=== PATIENT | male | born 1985 | race Caucasian/White ===

== ENCOUNTER 2017-06-25 07:55 | Emergency (ER) | payer SELFPAY ==
[2017-06-25] MEDS ORDERED: DEXAMETHASONE 10 MG/ML VIAL ONE (09:27)
--- NOTE | 2017-06-25 09:45 | ER ---
Nurse's Notes [facility] Name: Tod Mcgovern II Age: 31 yrs Sex: Male : 1985 Arrival Date: 06/25/2017 Time: 07:58 Bed 12 Private MD: None, None Diagnosis: Streptococcal pharyngitis Presentation: 06/25 08:23 Presenting complaint: Patient states: was diagnosed with strep, pt started having iw sore throat, fever 2 days ago, temp up to 103 last night. Transition of care: patient was not received from another setting of care. Onset of symptoms was June 23, 2017. Initial Sepsis Screen: Does the patient meet any 2 criteria? No. Patient's initial sepsis screen is negative. Does the patient have a suspected source of infection? No. Patient's initial sepsis screen is negative. Care prior to arrival: None. 08:23 Method Of Arrival: Ambulatory iw 08:23 Acuity: ESTEVAN 4 iw Historical: - Allergies: 08:26 aloe vera; iw - Home Meds: 08:26 None [Active]; iw - PMHx: 08:26 Migraines; iw - PSHx: 08:26 None; iw - Immunization history:: Adult Immunizations not up to date. - Social history:: Smoking status: Patient uses tobacco products, smokes one-half pack cigarettes per day. Screenin:43 Abuse screen: Denies threats or abuse. Denies injuries from another. Nutritional iw screening: No deficits noted. Tuberculosis screening: No symptoms or risk factors identified. Fall Risk None identified. Assessment: 08:42 General: Appears in no apparent distress. Behavior is calm, cooperative. Pain: iw Complains of pain in throat Pain currently is 5 out of 10 on a pain scale. Neuro: Level of Consciousness is awake, alert, obeys commands, Oriented to person, place, time, situation, Moves all extremities. Full function. Cardiovascular: Patient's skin is warm and dry. Respiratory: Airway is patent Respiratory effort is even, unlabored, Breath sounds are clear bilaterally. EENT: Throat is reddened bilaterally. Derm: Skin is pink, warm \T\ dry. normal. Musculoskeletal: Range of motion: intact in all extremities. Vital Signs: 08:26 BP 117 / 66; Pulse 94; Resp 18 S; Temp 98.1(TE); Pulse Ox 98% on R/A; Weight 142.88 kg; iw Height 5 ft. 9 in. (175.26 cm); Pain 7/10; 08:26 Body Mass Index 46.52 (142.88 kg, 175.26 cm) iw ED Course: 07:58 Patient arrived in ED. mr 07:58 None, None is Private Physician. mr 08:19 Mary Appiah, RN is Primary Nurse. iw 08:26 Triage completed. iw 08:26 León Adkins MD is Attending Physician. ps1 08:26 Arm band placed on. iw 08:43 No provider procedures requiring assistance completed. Strep swab sent to lab. Patient iw did not have IV access during this emergency room visit. 08:45 Patient has correct armband on for positive identification. iw Administered Medications: 09:30 Drug: Decadron - Dexamethasone 10 mg {Note: given orally.} Route: IVP; Site: Other; iw 09:50 Follow up: Response: No adverse reaction iw 09:50 Drug: Bicillin L-A 2.4 million units Route: IM; Site: right gluteus; iw Outcome: 09:44 Discharge ordered by . ps1 10:02 Discharged to home ambulatory. iw 10:02 Condition: good 10:02 Discharge instructions given to patient, Instructed on discharge instructions, follow up and referral plans. Demonstrated understanding of instructions, follow-up care. 10:03 Patient left the ED. iw Signatures: Sol Carrero Mary Appiah, RN RN iw León Adkins MD MD ps1 Corrections: (The following items were deleted from the chart) 08:50 08:23 Acuity: ESTEVAN 5 iw iw
--- NOTE | 2017-06-25 09:45 | EDPHYS ---
Physician Documentation [facility] Name: Tod Mcgovern II Age: 31 yrs Sex: Male : 1985 Arrival Date: 06/25/2017 Time: 07:58 Bed 12 Private MD: None, None ED Physician León Adkins HPI: 06/25 08:30 This 31 yrs old Male presents to ER via Ambulatory with complaints of Sore ps1 Throat. 08:30 The patient presents with sore throat. The patient describes throat pain as burning, ps1 raw, scratchy. Onset: The symptoms/episode began/occurred yesterday. Severity of symptoms: At their worst the symptoms were moderate, in the emergency department the symptoms are unchanged. Associated signs and symptoms: Pertinent negatives fever, flu-like symptoms. The patient has not experienced similar symptoms in the past. is sick with strep throat. . Historical: - Allergies: 08: aloe vera; iw - Home Meds: : None [Active]; iw - PMHx: : Migraines; iw - PSHx: : None; iw - Immunization history:: Adult Immunizations not up to date. - Social history:: Smoking status: Patient uses tobacco products, smokes one-half pack cigarettes per day. ROS: 08:31 Constitutional: Negative for fever, chills, and weight loss, Eyes: Negative for injury, ps1 pain, redness, and discharge, Cardiovascular: Negative for chest pain, palpitations, and edema, Respiratory: Negative for shortness of breath, cough, wheezing, and pleuritic chest pain, Abdomen/GI: Negative for abdominal pain, nausea, vomiting, diarrhea, and constipation, Back: Negative for injury and pain, : Negative for injury, bleeding, discharge, and swelling, Skin: Negative for injury, rash, and discoloration, Neuro: Negative for headache, weakness, numbness, tingling, and seizure. 08:31 ENT: Positive for sore throat. Exam: 08:31 Constitutional: This is a well developed, well nourished patient who is awake, alert, ps1 and in no acute distress. Head/Face: Normocephalic, atraumatic. Eyes: Pupils equal round and reactive to light, extra-ocular motions intact. Lids and lashes normal. Conjunctiva and sclera are non-icteric and not injected. 08:31 Cardiovascular: Regular rate and rhythm. No gallops, murmurs, or rubs. Normal PMI, no JVD. No pulse deficits. Respiratory: Lungs have equal breath sounds bilaterally, clear to auscultation and percussion. No rales, rhonchi or wheezes noted. No increased work of breathing, no retractions or nasal flaring. Abdomen/GI: Soft, non-tender, with normal bowel sounds. No distension or tympany. No guarding or rebound. No evidence of tenderness throughout. MS/ Extremity: Pulses equal, no cyanosis. Neurovascular intact. Full, normal range of motion. Neuro: Awake and alert, GCS 15, oriented to person, place, time, and situation. Cranial nerves II-XII grossly intact. Sensory grossly intact. 08:31 ENT: Posterior pharynx: Uvula: edematous, erythema, mild, erythema, that is moderate, exudate, is not appreciated. Vital Signs: 08:26 BP 117 / 66; Pulse 94; Resp 18 S; Temp 98.1(TE); Pulse Ox 98% on R/A; Weight 142.88 kg; iw Height 5 ft. 9 in. (175.26 cm); Pain 7/10; 08:26 Body Mass Index 46.52 (142.88 kg, 175.26 cm) iw MDM: 08:36 Patient medically screened. ps1 09:36 Data reviewed: vital signs, nurses notes. ED course: Strep positive. Bicililn given. ps1 Decadron given. Stable. . 0418 08:31 Order name: Strep; Complete Time: 09:34 ps1 Administered Medications: 09:30 Drug: Decadron - Dexamethasone 10 mg {Note: given orally.} Route: IVP; Site: Other; iw 09:50 Follow up: Response: No adverse reaction iw 09:50 Drug: Bicillin L-A 2.4 million units Route: IM; Site: right gluteus; iw Disposition: 18 09:44 Discharged to Home. Impression: Streptococcal pharyngitis. - Condition is Stable. - Discharge Instructions: Strep Throat. - Work release form, Medication Reconciliation Form, Thank You Letter, Antibiotic Education, Prescription Opioid Use form. - Follow up: Private Physician; When: As needed; Reason: Recheck today's complaints, Continuance of care, Re-evaluation by your physician. Follow up: Emergency Department; When: As needed; Reason: Trouble breathing, Worsening of condition. - Problem is new. - Symptoms have worsened. Signatures: Dispatcher [employer] Mary Remy, León Kline RN, MD MD ps1
[2017-06-25] MEDS ORDERED: PEN G BENZ LA 2.4 MU/4 ML SYRINGE IM ONE (09:52)
[2017-06-25 10:08] VITALS: BP 117/66; TEMP 98.1; O2SAT 98
== END 2017-06-25 10:03 | disposition home or self-care (01) ==
LOC: ER 07:55
DX: J02.0 Streptococcal pharyngitis (principal); F17.210 Nicotine dependence, cigarettes, uncomplicated; Z91.048 Other nonmedicinal substance allergy status
CPT/HCPCS: 87081; 96372; 96374; 99283; J0561; J1100

== ENCOUNTER 2018-04-15 15:48 | Emergency (ER) | payer SELFPAY ==
[2018-04-15] MEDS ORDERED: NA CHLORIDE 0.9% 1,000 ML ONE (17:57)
[2018-04-15] MEDS ORDERED: ONDANSETRON 4 MG/2 ML VIAL ONE (17:57)
--- NOTE | 2018-04-15 18:04 | EDPHYS ---
Physician Documentation [facility] Name: Tod Mcgovern II Age: 32 yrs Sex: Male : 1985 Arrival Date: 04/15/2018 Time: 15:51 Bed 15 Private MD: ED Physician Sunny Correia HPI: 04/15 17:41 This 32 yrs old Male presents to ER via Ambulatory with complaints of rn Nausea/Vomiting/Diarrhea, Urinary Problem. 17:41 The patient presents to the emergency department with nausea, vomiting, diarrhea. rn Onset: The symptoms/episode began/occurred 3 day(s) ago. Possible causes: unknown. The symptoms are aggravated by nothing. The symptoms are alleviated by nothing. Severity of symptoms: At their worst the symptoms were moderate. The patient has experienced similar episodes in the past. Reports multiple family members with flu like illness, vomiting, diarrhea, not tolerating PO, feels dehydrated.. Historical: - Allergies: 16:09 aloe vera; aa5 - PMHx: 16:09 Migraines; aa5 - PSHx: 16:09 None; aa5 - Immunization history:: Flu vaccine is not up to date. - Social history:: Smoking status: Patient uses tobacco products, smokes one-half pack cigarettes per day. - Ebola Screening: : No symptoms or risks identified at this time. - Family history:: not pertinent. - Hospitalizations: : No recent hospitalization is reported. ROS: 17:41 Constitutional: Negative for fever, chills, and weight loss, Eyes: Negative for injury, rn pain, redness, and discharge, Neck: Negative for injury, pain, and swelling, Cardiovascular: Negative for chest pain, palpitations, and edema, Respiratory: Negative for shortness of breath, cough, wheezing, and pleuritic chest pain, Abdomen/GI: + nausea/vomiting/diarrhea MS/Extremity: Negative for injury and deformity, Skin: Negative for injury, rash, and discoloration, Neuro: Negative for headache, numbness, tingling, and seizure. Exam: 17:41 Constitutional: This is a well developed, well nourished patient who is awake, alert, rn and in no acute distress. Head/Face: Normocephalic, atraumatic. Eyes: Pupils equal round and reactive to light, extra-ocular motions intact. Lids and lashes normal. Conjunctiva and sclera are non-icteric and not injected. Cornea within normal limits. Periorbital areas with no swelling, redness, or edema. ENT: dry MM Abdomen/GI: soft, non-tender Skin: warm, dry MS/ Extremity: Pulses equal, no cyanosis. Neurovascular intact. Full, normal range of motion. Equal circumference. Neuro: Awake and alert, GCS 15, oriented to person, place, time, and situation. Cranial nerves II-XII grossly intact. Motor strength 5/5 in all extremities. Sensory grossly intact. Cerebellar exam normal. Normal gait. Vital Signs: 16:10 BP 141 / 68; Pulse 86; Resp 18 S; Temp 98.0(TE); Pulse Ox 97% on R/A; Weight 135.62 kg aa5 (R); Height 5 ft. 9 in. (175.26 cm); Pain 0/10; 18:49 BP 134 / 77; Pulse 79; Resp 16 S; Pulse Ox 98% on R/A; jl7 16:10 Body Mass Index 44.15 (135.62 kg, 175.26 cm) aa5 MDM: 17:29 Patient medically screened. rn 17:41 Differential diagnosis: Nonspecific abd pain, viral gastroenteritis, gastroenteritis. rn Data reviewed: vital signs, nurses notes, lab test result(s), and as a result, I will discharge patient. Counseling: I had a detailed discussion with the patient and/or guardian regarding: the historical points, exam findings, and any diagnostic results supporting the discharge/admit diagnosis, lab results, the need for outpatient follow up, to return to the emergency department if symptoms worsen or persist or if there are any questions or concerns that arise at home. 18:01 Special discussion: I discussed with the patient/guardian in detail that at this point rn there is no indication for admission to the hospital. It is understood, however, that if the symptoms persist or worsen the patient needs to return immediately for re-evaluation. ED course: Pt's spouse with flu, symptoms consistent with flu/flu-like illness, no abd tenderness, will rehydrate and dc home with prn zofran, too late for tamiflu. Flu test likely false negative. . 04/15 15:59 Order name: Flu; Complete Time: 17:38 snw 04/15 17:39 Order name: IV Start; Complete Time: 18:00 rn Administered Medications: 18:06 Drug: NS 0.9% 1000 ml Route: IV; Rate: 1000 ml; Site: left antecubital; [facility] 18:50 Follow up: IV Status: Completed infusion 7 18:06 Drug: Zofran 4 mg Route: IVP; Site: left antecubital; [facility] 18:50 Follow up: Response: No adverse reaction; Nausea is decreased [facility] Disposition: 04/15/18 18:03 Discharged to Home. Impression: Vomiting, Diarrhea, unspecified, Dehydration. - Condition is Stable. - Discharge Instructions: Dehydration, Adult, Nausea and Vomiting, Adult, Viral Gastroenteritis, Adult. - Prescriptions for Zofran ODT 4 mg Oral tablet,disintegrating - place 1 tablet by TRANSLINGUAL route every 8 hours; 20 tablet. - Medication Reconciliation Form, Thank You Letter, Antibiotic Education, Prescription Opioid Use, Work release form form. - Follow up: Private Physician; When: As needed; Reason: Recheck today's complaints, Re-evaluation by your physician. - Problem is new. - Symptoms have improved. Signatures: Dispatcher [employer] EDMS Sunny Correia MD MD rn Calderon, Audri, RN RN aa5 Black Cooney RN RN hj Marinas, Patrick, [employer] pm1 Miles Dimas RN RN jl7 Corrections: (The following items were deleted from the chart) 18:51 18:03 04/15/2018 18:03 Discharged to Home. Impression: Vomiting; Diarrhea, unspecified; jl7 Dehydration. Condition is Stable. Forms are Medication Reconciliation Form, Thank You Letter, Antibiotic Education, Prescription Opioid Use. Follow up: Private Physician; When: As needed; Reason: Recheck today's complaints, Re-evaluation by your physician. Problem is new. Symptoms have improved. rn 19:05 18:51 04/15/2018 18:03 Discharged to Home. Impression: Vomiting; Diarrhea, unspecified; hj Dehydration. Condition is Stable. Discharge Instructions: Dehydration, Adult, Nausea and Vomiting, Adult, Viral Gastroenteritis, Adult. Prescriptions for Zofran ODT 4 mg Oral tablet,disintegrating - place 1 tablet by TRANSLINGUAL route every 8 hours; 20 tablet. and Forms are Medication Reconciliation Form, Thank You Letter, Antibiotic Education, Prescription Opioid Use. Follow up: Private Physician; When: As needed; Reason: Recheck today's complaints, Re-evaluation by your physician. Problem is new. Symptoms have improved. jl7
--- NOTE | 2018-04-15 18:04 | ER ---
Nurse's Notes [facility] Name: Tod Mcgovern II Age: 32 yrs Sex: Male : 1985 Arrival Date: 04/15/2018 Time: 15:51 Bed 15 Private MD: Diagnosis: Vomiting;Diarrhea, unspecified;Dehydration Presentation: 04/15 16:08 Presenting complaint: Patient states: N/V/D and cough that began approximately 4 days aa5 ago. Pt also reports decreased urination. Transition of care: patient was not received from another setting of care. Onset of symptoms was April 2018. Risk Assessment: Do you want to hurt yourself or someone else? Patient reports no desire to harm self or others. Initial Sepsis Screen: Does the patient meet any 2 criteria? No. Patient's initial sepsis screen is negative. Does the patient have a suspected source of infection? No. Patient's initial sepsis screen is negative. Care prior to arrival: None. 16:08 Method Of Arrival: Ambulatory aa5 16:08 Acuity: ESTEVAN 3 aa5 Historical: - Allergies: 16:09 aloe vera; aa5 - PMHx: 16:09 Migraines; aa5 - PSHx: 16:09 None; aa5 - Immunization history:: Flu vaccine is not up to date. - Social history:: Smoking status: Patient uses tobacco products, smokes one-half pack cigarettes per day. - Ebola Screening: : No symptoms or risks identified at this time. - Family history:: not pertinent. - Hospitalizations: : No recent hospitalization is reported. Screenin:06 Abuse screen: Denies threats or abuse. Denies injuries from another. Nutritional jl7 screening: No deficits noted. Tuberculosis screening: No symptoms or risk factors identified. Fall Risk IV access (20 points). Total Bettencourt Fall Scale indicates No Risk (0-24 pts). Assessment: 18:06 General: Appears in no apparent distress. uncomfortable, Behavior is calm, cooperative, jl7 appropriate for age. Pain: Denies pain. Neuro: Level of Consciousness is awake, alert, obeys commands, Oriented to person, place, time, situation. Cardiovascular: Patient's skin is warm and dry. Respiratory: Airway is patent Respiratory effort is even, unlabored, Respiratory pattern is regular, symmetrical. GI: Abdomen is round non-distended. : No signs and/or symptoms were reported regarding the genitourinary system. EENT: No signs and/or symptoms were reported regarding the EENT system. Derm: Skin is pink, warm \T\ dry. Musculoskeletal: No signs and/or symptoms reported regarding the musculoskeletal system. 18:21 Reassessment: Pt will be discharged once fluids are done infusing. [facility] Vital Signs: 16:10 BP 141 / 68; Pulse 86; Resp 18 S; Temp 98.0(TE); Pulse Ox 97% on R/A; Weight 135.62 kg aa5 (R); Height 5 ft. 9 in. (175.26 cm); Pain 0/10; 18:49 BP 134 / 77; Pulse 79; Resp 16 S; Pulse Ox 98% on R/A; jl7 16:10 Body Mass Index 44.15 (135.62 kg, 175.26 cm) 5 ED Course: 15:51 Patient arrived in ED. rg4 16:09 Triage completed. 5 16:10 Arm band placed on. [facility] 17:17 Miles Dimas RN is Primary Nurse. [facility] 17:29 Sunny Correia MD is Attending Physician. rn 17:30 Flu and/or RSV swab sent to lab. [facility] 18:00 Patient has correct armband on for positive identification. Bed in low position. Call [facility] light in reach. Side rails up X 1. Warm blanket given. Pulse ox on. NIBP on. 18:00 Inserted saline lock: 20 gauge in left antecubital area, using aseptic technique. [facility] 18:50 No provider procedures requiring assistance completed. IV discontinued, intact, 7 bleeding controlled, No redness/swelling at site. Pressure dressing applied. Administered Medications: 18:06 Drug: NS 0.9% 1000 ml Route: IV; Rate: 1000 ml; Site: left antecubital; [facility] 18:50 Follow up: IV Status: Completed infusion [facility] 18:06 Drug: Zofran 4 mg Route: IVP; Site: left antecubital; [facility] 18:50 Follow up: Response: No adverse reaction; Nausea is decreased [facility] Outcome: 18:03 Discharge ordered by . rn 18:50 Discharged to home ambulatory. [facility] 18:50 Condition: stable 18:50 Discharge instructions given to patient, Instructed on discharge instructions, follow up and referral plans. medication usage, Demonstrated understanding of instructions, follow-up care, medications, Prescriptions given X 1. 18:51 Patient left the ED. [email or web address] 19:05 Patient left the ED. leia Signatures: Sunny Correia MD MD rn Calderon, Audri, RN RN aa5 Black Cooney RN Emily Ortega 4 Sol Abdalla [facility] Miles Dimas RN RN jl7
[2018-04-15 19:15] VITALS: BP 134/77; O2SAT 98
[2018-04-15 19:40] VITALS: TEMP 99.9
== END 2018-04-15 19:05 | disposition home or self-care (01) ==
LOC: ER 15:48
DX: E86.0 Dehydration (principal); R19.7 Diarrhea, unspecified; F17.210 Nicotine dependence, cigarettes, uncomplicated; Z91.048 Other nonmedicinal substance allergy status
CPT/HCPCS: 87804; 96361; 96374; 99284; J2405; J7030

== ENCOUNTER 2018-04-22 02:22 | Emergency (ER) | payer SELFPAY ==
[2018-04-22 03:13] LABS: Absolute Lymphocytes (CBC) 3.3 K/uL (0.7-4.9); Absolute Monocytes 0.7 K/uL (0.1-1.3); Absolute Neutrophil 8.3 K/uL (1.8-8.0); Basophils % 0.4 % (0-1.3); Eosinophils % 1.3 % (0-4.4); Hematocrit 49.2 % (39.6-49.0); Lymphocytes % 26.4 % (15.3-44.8); MPV 8.9 fL (7.6-11.3); Monocytes % 5.5 % (3.3-12.3); RBC Red Blood Cell Count 5.74 M/uL (4.33-5.43)
[2018-04-22 03:14] LABS: Protime INR 1.03
[2018-04-22] MEDS ORDERED: ALBUTEROL 2.5 MG/3 ML NEB SOL ONE (03:22)
[2018-04-22] MEDS ORDERED: METHYLPREDNISOLONE 125 MG INJ ONE (03:22)
[2018-04-22] MEDS ORDERED: IPRATROPIUM BROM 0.5MG/2.5ML ONE (03:22)
[2018-04-22] MEDS ORDERED: AZITHROMYCIN 500 MG/250 ML BAG ONE (03:23)
[2018-04-22] MEDS ORDERED: NA CHLORIDE 0.9% 1,000 ML ONE ×2 (03:23→04:01)
[2018-04-22] MEDS ORDERED: CEFTRIAXONE/SWI 1gm 1 GM/10 ML SYR ONE (03:23)
[2018-04-22 03:31] LABS: ALT/SGPT 76 U/L (12-78); AST/SGOT 31 U/L (15-37); Albumin 4.3 g/dL (3.4-5.0); Alkaline Phosphatase 49 U/L (45-117); BUN Blood Urea Nitrogen 10 mg/dL (7-18); Bicarbonate 28 mmol/L (21-32); Bilirubin Direct 0.1 mg/dL (0-0.2); Bilirubin Total 0.6 mg/dL (0.2-1.0); Glucose Level 134 mg/dL (74-106); Lipase 112 U/L (73-393); Magnesium 2.1 mg/dL (1.8-2.4); NT PRO-BNP 12 pg/mL (<125); Potassium 3.9 mmol/L (3.5-5.1); Protein, Total 7.7 g/dL (6.4-8.2); Sodium Level 142 mmol/L (136-145); Troponin (Emerg Dept Use Only) < 0.02 ng/mL (0.0-0.045)
--- NOTE | 2018-04-22 06:59 | EDPHYS ---
Physician Documentation [facility] Name: Tod Mcgovern II Age: 32 yrs Sex: Male : 1985 Arrival Date: 04/22/2018 Time: 02:23 Bed 6 Private MD: ED Physician Cesar Hoyos HPI: 04/22 02:46 This 32 yrs old Male presents to ER via Ambulatory with complaints of lobito Vomiting/Diarrhea, Shortness Of Breath, Chest Pain. 02:46 The patient presents to the emergency department with nausea, vomiting, diarrhea. lobito Onset: The symptoms/episode began/occurred 3 day(s) ago. Possible causes: unknown. The symptoms are aggravated by nothing. The symptoms are alleviated by nothing. Associated signs and symptoms: The patient has no apparent associated signs or symptoms. Severity of symptoms: At their worst the symptoms were mild moderate in the emergency department the symptoms are unchanged. The patient has not experienced similar symptoms in the past. Historical: - Allergies: 02:40 aloe vera; bb - Home Meds: 02:40 None [Active]; bb - PMHx: 02:40 Migraines; bb - PSHx: 02:40 None; bb - Immunization history:: Adult Immunizations unknown, Flu vaccine is not up to date. - Social history:: Smoking status: Patient uses tobacco products, smokes one-half pack cigarettes per day, Patient/guardian denies using alcohol, street drugs. - Ebola Screening: : No symptoms or risks identified at this time. - Family history:: not pertinent. ROS: 02:46 Constitutional: Negative for fever, chills, and weight loss, Eyes: Negative for injury, lobito pain, redness, and discharge, ENT: Negative for injury, pain, and discharge, Neck: Negative for injury, pain, and swelling, Cardiovascular: Negative for chest pain, palpitations, and edema, Back: Negative for injury and pain, : Negative for injury, bleeding, discharge, and swelling, MS/Extremity: Negative for injury and deformity, Skin: Negative for injury, rash, and discoloration, Neuro: Negative for headache, weakness, numbness, tingling, and seizure, Psych: Negative for depression, anxiety, suicide ideation, homicidal ideation, and hallucinations, Allergy/Immunology: Negative for hives, rash, and allergies, Endocrine: Negative for neck swelling, polydipsia, polyuria, polyphagia, and marked weight changes, Hematologic/Lymphatic: Negative for swollen nodes, abnormal bleeding, and unusual bruising. 02:46 Cardiovascular: Negative for edema, palpitations. 02:46 Respiratory: Positive for cough, wheezing, expiratory. 02:46 Abdomen/GI: Positive for nausea, vomiting, diarrhea. 02:46 MS/extremity: Negative for acute changes. Exam: 02:46 Constitutional: This is a well developed, well nourished patient who is awake, alert, lobito and in no acute distress. Head/Face: Normocephalic, atraumatic. Eyes: Pupils equal round and reactive to light, extra-ocular motions intact. Lids and lashes normal. Conjunctiva and sclera are non-icteric and not injected. Cornea within normal limits. Periorbital areas with no swelling, redness, or edema. ENT: Nares patent. No nasal discharge, no septal abnormalities noted. Tympanic membranes are normal and external auditory canals are clear. Oropharynx with no redness, swelling, or masses, exudates, or evidence of obstruction, uvula midline. Mucous membranes moist. Neck: Trachea midline, no thyromegaly or masses palpated, and no cervical lymphadenopathy. Supple, full range of motion without nuchal rigidity, or vertebral point tenderness. No Meningismus. Chest/axilla: Normal chest wall appearance and motion. Nontender with no deformity. No lesions are appreciated. Cardiovascular: Regular rate and rhythm with a normal S1 and S2. No gallops, murmurs, or rubs. Normal PMI, no JVD. No pulse deficits. Abdomen/GI: Soft, non-tender, with normal bowel sounds. No distension or tympany. No guarding or rebound. No evidence of tenderness throughout. Back: No spinal tenderness. No costovertebral tenderness. Full range of motion. Male : Normal genitalia with no discharge or lesions. Skin: Warm, dry with normal turgor. Normal color with no rashes, no lesions, and no evidence of cellulitis. MS/ Extremity: Pulses equal, no cyanosis. Neurovascular intact. Full, normal range of motion. Neuro: Awake and alert, GCS 15, oriented to person, place, time, and situation. Cranial nerves II-XII grossly intact. Motor strength 5/5 in all extremities. Sensory grossly intact. Cerebellar exam normal. Normal gait. Psych: Awake, alert, with orientation to person, place and time. Behavior, mood, and affect are within normal limits. 02:46 Respiratory: the patient does not display signs of respiratory distress, Respirations: normal, no acute changes, Breath sounds: bronchial sounds, decreased breath sounds, rhonchi, wheezing: expiratory Vital Signs: 02:40 BP 141 / 94; Pulse 85; Resp 18 S; Temp 97.9(O); Pulse Ox 97% on R/A; Weight 136.08 kg bb (R); Height 5 ft. 9 in. (175.26 cm) (R); Pain 5/10; 04:42 BP 135 / 37; Pulse 79; Resp 18; Pulse Ox 99% on R/A; tl2 05:24 BP 139 / 51; Pulse 63; Resp 18; Pulse Ox 96% on R/A; tl2 06:41 BP 119 / 56; Pulse 87; Resp 18; Pulse Ox 96% on R/A; tl2 02:40 Body Mass Index 44.30 (136.08 kg, 175.26 cm) MDM: 02:34 Patient medically screened. [facility] 02:48 Data reviewed: vital signs, nurses notes, lab test result(s), EKG, radiologic studies, lobito plain films. 04/22 02:46 Order name: Basic Metabolic Panel [facility] 04/22 02:46 Order name: CBC with Diff [facility] 04/22 02:46 Order name: LFT's [facility] 04/22 02:46 Order name: Magnesium [facility] 04/22 02:46 Order name: NT PRO-BNP; Complete Time: 03:42 [facility] 04/22 02:46 Order name: PT-INR; Complete Time: 03:42 [facility] 04/22 02:46 Order name: Troponin (emerg Dept Use Only); Complete Time: 03:42 [facility] 04/22 02:46 Order name: Blood Culture Adult (2) [facility] 04/22 02:46 Order name: Lipase; Complete Time: 03:42 [facility] 04/22 02:46 Order name: Procalcitonin; Complete Time: 03:42 [facility] 04/22 02:47 Order name: Basic Metabolic Panel; Complete Time: 03:42 [facility] 04/22 02:47 Order name: CBC with Automated Diff; Complete Time: 03:42 [facility] 04/22 02:47 Order name: Liver (Hepatic) Function; Complete Time: 03:42 [facility] 04/22 02:47 Order name: Magnesium; Complete Time: 03:42 [facility] 04/22 02:46 Order name: XRAY Chest (1 view) [facility] 04/22 02:46 Order name: EKG; Complete Time: 02:47 [facility] 04/22 02:46 Order name: Cardiac monitoring; Complete Time: 03:05 [facility] 04/22 02:46 Order name: EKG - Nurse/Tech; Complete Time: 02:48 [facility] 04/22 02:46 Order name: IV Saline Lock; Complete Time: 03:05 [facility] 04/22 02:46 Order name: Labs collected and sent; Complete Time: 03:05 [facility] 04/22 02:46 Order name: O2 Per Protocol; Complete Time: 03:05 [facility] 04/22 02:46 Order name: O2 Sat Monitoring; Complete Time: 03:04 [facility] 04/22 02:55 Order name: Flu; Complete Time: 03:42 [facility] 04/22 03:43 Order name: CT Chest For PE Angio [facility] Administered Medications: 03:22 Drug: SOLU-Medrol 125 mg Route: IVP; Site: left antecubital; tl2 04:00 Follow up: Response: No adverse reaction; Marked relief of symptoms tl2 03:22 Drug: Albuterol - atroVENT (3:1) (2.5 mg - 0.5 mg) 3 ml Route: Nebulizer; tl2 04:00 Follow up: Response: No adverse reaction; Marked relief of symptoms tl2 03:26 Drug: NS 0.9% 1000 ml Route: IV; Rate: 1 bolus; Site: left antecubital; tl2 04:30 Follow up: IV Status: Completed infusion; IV Intake: 1000ml tl2 07:07 Follow up: Response: No adverse reaction; IV Status: Completed infusion; IV Intake: ea 1000ml 03:26 Drug: Rocephin - (cefTRIAXone) 2 grams Route: IVPB; Infused Over: 30 mins; Site: left tl2 antecubital; 04:00 Follow up: IV Status: Completed infusion tl2 03:26 Drug: Zithromax 500 mg Route: IVPB; Infused Over: 1 hrs; Site: left antecubital; tl2 04:30 Follow up: IV Status: Completed infusion; IV Intake: 250ml tl2 03:54 Drug: NS 0.9% 1000 ml Route: IV; Rate: 1 bolus; Site: left antecubital; ea 07:05 Follow up: IV Status: Completed infusion; IV Intake: 1000ml tl2 Disposition: 04/22/18 06:58 Discharged to Home. Impression: Fever, unspecified, Chest pain, unspecified, Pneumonia due to other specified bacteria. - Condition is Stable. - Discharge Instructions: Nonspecific Chest Pain, Fever, Adult, Community-Acquired Pneumonia, Adult, Nonspecific Chest Pain, [id number], Aspirin and Your Heart. - Prescriptions for Ibuprofen 600 mg Oral Tablet - take 1 tablet by ORAL route every 8 hours As needed take with food; 21 tablet. Medrol (Juan) 4 mg Oral Tablets, Dose Pack - take 1 tablet by ORAL route as directed - follow package instructions; 1 packet. Albuterol Sulfate 90 mcg/actuation - inhale 1-2 puff by INHALATION route every 4-6 hours; 1 Inhaler. Zithromax 500 mg Oral Tablet - take 1 tablet by ORAL route once daily for 5 days; 5 tablet. Albuterol Sulfate 2.5 mg /3 mL (0.083 %) Inhalation Solution for Nebulization - inhale 1 unit by NEBULIZATION route every 8 hours As needed; 1 box. - Medication Reconciliation Form, Thank You Letter, Antibiotic Education, Prescription Opioid Use form. - Work release form (04/22/18 07:09). ea - Follow up: Private Physician; When: 2 - 3 days; Reason: Recheck today's complaints, Continuance of care, Re-evaluation by your physician. Follow up: Thomas Perez; When: 2 - 3 days; Reason: Recheck today's complaints, Re-evaluation by your physician. - Problem is new. - Symptoms have improved. Signatures: Dispatcher [employer] EDeCsar Jacob MD MD cha Ballard, Brenda, RN RN bb Knox, Taylor RN Marie Baez RN RN ea Corrections: (The following items were deleted from the chart) 07:07 06:58 04/22/2018 06:58 Discharged to Home. Impression: Fever, unspecified; Chest pain, tl2 unspecified; Pneumonia due to other specified bacteria. Condition is Stable. Discharge Instructions: Nonspecific Chest Pain, Fever, Adult, Community-Acquired Pneumonia, Adult, Nonspecific Chest Pain, [id number], Aspirin and Your Heart. Prescriptions for Ibuprofen 600 mg Oral Tablet - take 1 tablet by ORAL route every 8 hours As needed take with food; 21 tablet, Medrol (Juan) 4 mg Oral Tablets, Dose Pack - take 1 tablet by ORAL route as directed - follow package instructions; 1 packet, Albuterol Sulfate 90 mcg/actuation - inhale 1-2 puff by INHALATION route every 4-6 hours; 1 Inhaler, Zithromax 500 mg Oral Tablet - take 1 tablet by ORAL route once daily for 5 days; 5 tablet, Albuterol Sulfate 2.5 mg /3 mL (0.083 %) Inhalation Solution for Nebulization - inhale 1 unit by NEBULIZATION route every 8 hours As needed; 1 box. and Forms are Medication Reconciliation Form, Thank You Letter, Antibiotic Education, Prescription Opioid Use. Follow up: Private Physician; When: 2 - 3 days; Reason: Recheck today's complaints, Continuance of care, Re-evaluation by your physician. Follow up: Thomas Perez; When: 2 - 3 days; Reason: Recheck today's complaints, Re-evaluation by your physician. Problem is new. Symptoms have improved. lobito
--- NOTE | 2018-04-22 06:59 | ER ---
Nurse's Notes [facility] Name: Tod Mcgovern II Age: 32 yrs Sex: Male : 1985 Arrival Date: 04/22/2018 Time: 02:23 Bed 6 Private MD: Diagnosis: Fever, unspecified;Chest pain, unspecified;Pneumonia due to other specified bacteria Presentation: 04/22 02:38 Presenting complaint: Patient states: he has been vomiting since 2330 last night with bb nausea and diarrhea also has SOB feels like his lungs "are on fire" pt's spouse is admitted to ICU here with sepsis. Transition of care: patient was not received from another setting of care. Onset of symptoms was April 20, 2018. Risk Assessment: Do you want to hurt yourself or someone else? Patient reports no desire to harm self or others. Initial Sepsis Screen: Does the patient meet any 2 criteria? No. Patient's initial sepsis screen is negative. Does the patient have a suspected source of infection? No. Patient's initial sepsis screen is negative. Care prior to arrival: None. 02:38 Method Of Arrival: Ambulatory bb 02:38 Acuity: ESTEVAN 3 bb Historical: - Allergies: 02:40 aloe vera; bb - Home Meds: 02:40 None [Active]; bb - PMHx: 02:40 Migraines; bb - PSHx: 02:40 None; bb - Immunization history:: Adult Immunizations unknown, Flu vaccine is not up to date. - Social history:: Smoking status: Patient uses tobacco products, smokes one-half pack cigarettes per day, Patient/guardian denies using alcohol, street drugs. - Ebola Screening: : No symptoms or risks identified at this time. - Family history:: not pertinent. Screenin:06 Abuse screen: Denies threats or abuse. Nutritional screening: No deficits noted. tl2 Tuberculosis screening: No symptoms or risk factors identified. Fall Risk None identified. Assessment: 03:06 General: Appears in no apparent distress. uncomfortable, Behavior is calm, cooperative, tl2 appropriate for age. Pain: Complains of pain in "lungs". Neuro: Level of Consciousness is awake, alert, obeys commands, Oriented to person, place, time, situation. Cardiovascular: Denies chest pain. Respiratory: Reports shortness of breath cough that is productive, Airway is patent Respiratory effort is even, unlabored, Respiratory pattern is regular, Breath sounds are clear bilaterally. GI: Abdomen is obese, Reports nausea, vomiting. : No signs and/or symptoms were reported regarding the genitourinary system. Derm: Skin is pink, warm \\T\\ dry. 04:15 Reassessment: Patient and/or family updated on plan of care and expected duration. Pain ea level reassessed. Patient is alert, oriented x 3, equal unlabored respirations, skin warm/dry/pink. 04:44 Reassessment: Patient appears in no apparent distress at this time. Patient and/or tl2 family updated on plan of care and expected duration. Pain level reassessed. Patient is alert, oriented x 3, equal unlabored respirations, skin warm/dry/pink. 05:24 Reassessment: Patient appears in no apparent distress at this time. Patient and/or tl2 family updated on plan of care and expected duration. Pain level reassessed. pt appears to be sleeping, RR even and unlabored. 07:03 Reassessment: Patient appears in no apparent distress at this time. Patient and/or tl2 family updated on plan of care and expected duration. Pain level reassessed. Patient is alert, oriented x 3, equal unlabored respirations, skin warm/dry/pink. pt verbalized understanding of discharge instructions, need for follow up and prescription usage Patient states feeling better. Vital Signs: 02:40 BP 141 / 94; Pulse 85; Resp 18 S; Temp 97.9(O); Pulse Ox 97% on R/A; Weight 136.08 kg bb (R); Height 5 ft. 9 in. (175.26 cm) (R); Pain 5/10; 04:42 BP 135 / 37; Pulse 79; Resp 18; Pulse Ox 99% on R/A; tl2 05:24 BP 139 / 51; Pulse 63; Resp 18; Pulse Ox 96% on R/A; tl2 06:41 BP 119 / 56; Pulse 87; Resp 18; Pulse Ox 96% on R/A; tl2 02:40 Body Mass Index 44.30 (136.08 kg, 175.26 cm) bb ED Course: 02:23 Patient arrived in ED. es 02:34 Cesar Hoyos MD is Attending Physician. lobito 02:40 Triage completed. bb 02:40 Arm band placed on Patient placed in an exam room, on a stretcher, on pulse oximetry. bb 02:46 Jo Ann Zamora, PAWEL is Primary Nurse. tl2 02:55 X-ray completed. Portable x-ray completed in exam room. Patient tolerated procedure kw well. 02:57 XRAY Chest (1 view) In Process Unspecified. EDMS 03:05 Inserted saline lock: 20 gauge in left antecubital area, using aseptic technique. Blood tl2 collected. 03:06 Patient has correct armband on for positive identification. Placed in gown. Bed in low tl2 position. Call light in reach. 04:40 CT completed. Patient tolerated procedure well. Patient moved to CT via wheelchair. Patient moved back from CT. 04:52 CT Chest For PE Angio In Process Unspecified. EDMS 06:58 Thomas Perez MD is Referral Physician. lobito 07:03 No provider procedures requiring assistance completed. IV discontinued, intact, tl2 bleeding controlled, No redness/swelling at site. Pressure dressing applied. Administered Medications: 03:22 Drug: SOLU-Medrol 125 mg Route: IVP; Site: left antecubital; tl2 04:00 Follow up: Response: No adverse reaction; Marked relief of symptoms tl2 03:22 Drug: Albuterol - atroVENT (3:1) (2.5 mg - 0.5 mg) 3 ml Route: Nebulizer; tl2 04:00 Follow up: Response: No adverse reaction; Marked relief of symptoms tl2 03:26 Drug: NS 0.9% 1000 ml Route: IV; Rate: 1 bolus; Site: left antecubital; tl2 04:30 Follow up: IV Status: Completed infusion; IV Intake: 1000ml tl2 07:07 Follow up: Response: No adverse reaction; IV Status: Completed infusion; IV Intake: ea 1000ml 03:26 Drug: Rocephin - (cefTRIAXone) 2 grams Route: IVPB; Infused Over: 30 mins; Site: left tl2 antecubital; 04:00 Follow up: IV Status: Completed infusion tl2 03:26 Drug: Zithromax 500 mg Route: IVPB; Infused Over: 1 hrs; Site: left antecubital; tl2 04:30 Follow up: IV Status: Completed infusion; IV Intake: 250ml tl2 03:54 Drug: NS 0.9% 1000 ml Route: IV; Rate: 1 bolus; Site: left antecubital; ea 07:05 Follow up: IV Status: Completed infusion; IV Intake: 1000ml tl2 Intake: 04:30 IV: 250ml; Total: 250ml. tl2 04:30 IV: 1000ml; Total: 1250ml. tl2 07:05 IV: 1000ml; Total: 2250ml. tl2 07:07 IV: 1000ml; Total: 3250ml. ea Outcome: 06:58 Discharge ordered by . lobito 07:03 Discharged to home ambulatory. tl2 07:03 Condition: stable 07:03 Discharge instructions given to patient, Instructed on discharge instructions, follow up and referral plans. medication usage, Demonstrated understanding of instructions, follow-up care, medications, Prescriptions given X 5 07:07 Patient left the ED. tl2 Signatures: Dispatcher [employer] EDCesar Jacob MD MD cha Salyer, Edna es Hagler, Ervin eh Ballard, Brenda, RN RN Adeola Cadena Taylor, RN RN tl2 Marie Porter RN RN ea
[2018-04-22 07:15] VITALS: TEMP 97.9
[2018-04-22 07:17] VITALS: O2SAT 96
[2018-04-22 07:18] VITALS: BP 119/56
--- NOTE | 2018-04-22 08:17 | RAD REPORT ---
EXAM DESCRIPTION: [place] Single View04/22/2018 2:58 am CLINICAL HISTORY: Cough COMPARISON: 2013 FINDINGS: The lungs appear clear of acute infiltrate. The heart is normal size IMPRESSION: No acute abnormalities displayed
--- NOTE | 2018-04-22 09:52 | EKG ---
Test Date: 2018-04-22 Test Time: 02:44:49 Check Processing Clerk: JOAN MEASUREMENT RESULTS: Intervals: Rate: 75 VT: 172 QRSD: 88 QT: 370 QTc: 413 [place]: P: 52 VT: 172 QRS: 30 T: 45 INTERPRETIVE STATEMENTS: Normal sinus rhythm Normal ECG No previous ECG available for comparison Electronically Signed On 04-22-18 09:51:47 [employer] by Jason Ott
--- NOTE | 2018-04-22 13:14 | RAD REPORT ---
EXAM DESCRIPTION: CT - Chest For Pe Angio CLINICAL HISTORY: The patient is 32 years old and is Male; cough; chest pain COMPARISON: No relevant prior studies available. FINDINGS: Artifacts: The exam is suboptimal secondary to motion artifact. Pulmonary arteries: The main pulmonary arteries and proximal segmental branches opacify normally and are without filling defect. However, the remainder of the pulmonary vessels are inadequately evaluate d secondary to motion artifact. Aorta: No acute findings. No thoracic aortic aneurysm. Lungs: Peripheral areas of nonspecific nodular tree-in-bud/groundglass opacity is present. No mass. N o consolidation. Pleural spaces: Unremarkable. No significant effusion. No pneumothorax. Heart: Unremarkable. No cardiomegaly. No significant pericardial effusion. No evidence of RV dysfunct ion. Bones/joints: No acute fracture. No dislocation. Soft tissues: Unremarkable. Lymph nodes: Unremarkable. No enlarged lymph nodes. Liver: There is diffuse decrease in hepatic parenchymal density, consistent with fatty infiltration. IMPRESSION: 1. The main pulmonary arteries and proximal segmental branches opacify normally and are without filling defect. However, the remainder of the pulmonary vessels are inadequately evaluated se condary to motion artifact. 2. Scattered peripheral nodular groundglass and tree-in-bud opacities. Findings are nonspecific; goddard seun, in the appropriate clinical setting, pulmonary edema, pneumonia, or various causes of alveolitis should be considered. Electronically signed by Brit Persaud MD 04/22/2018 4:56 AM FINAL FINISHER Due to temporary technical issues with the PACS/Fluency reporting system, reports are being signed by the in house radiologist as a courtesy to ensure prompt reporting. The interpreting radiologist is f ully responsible for the content of the report.
== END 2018-04-22 07:07 | disposition home or self-care (01) ==
LOC: ER 02:22
DX: J18.9 Pneumonia, unspecified organism (principal); R11.2 Nausea with vomiting, unspecified; R19.7 Diarrhea, unspecified; F17.210 Nicotine dependence, cigarettes, uncomplicated
CPT/HCPCS: 36415; 71045; 71275; 80048; 80076; 83690; 83735; 83880; 84145; 84484; 85025; 85610; 87040; 87804; 93005; 94640; 96361; 96365; 96368; 96375; 99285; J0456; J0696; J2930; J7030; Q9967

== ENCOUNTER 2018-10-28 10:53 | Emergency (ER) | payer SELFPAY ==
--- NOTE | 2018-10-28 11:17 | ER ---
Nurse's Notes [facility] Name: Tod Mcgovern II Age: 32 yrs Sex: Male : 1985 Arrival Date: 10/28/2018 Time: 10:58 Bed Waiting Private MD: Diagnosis: Encounter for screening, unspecified Presentation: 10/28 11:08 Presenting complaint: Patient states: I dont want to waste your time, I need a work la1 note. I was sick but I took care of it at home. Transition of care: patient was not received from another setting of care. Onset of symptoms was October 28, 2018. Risk Assessment: Do you want to hurt yourself or someone else? Patient reports no desire to harm self or others. Initial Sepsis Screen: Does the patient meet any 2 criteria? No. Patient's initial sepsis screen is negative. Does the patient have a suspected source of infection? No. Patient's initial sepsis screen is negative. Care prior to arrival: None. 11:08 Method Of Arrival: Ambulatory la1 11:08 Acuity: ESTEVAN 5 la1 Historical: - Allergies: 11:07 aloe vera; la1 - PMHx: 11:07 Migraines; la1 - Immunization history:: Adult Immunizations up to date. - Social history:: Smoking status: Patient uses tobacco products, smokes one-half pack cigarettes per day. - Ebola Screening: : No symptoms or risks identified at this time. Screenin:09 Abuse screen: Denies threats or abuse. Nutritional screening: No deficits noted. la1 Tuberculosis screening: No symptoms or risk factors identified. Fall Risk None identified. Assessment: 11:09 Reassessment: Patient states feeling better. Patient states symptoms have improved. la1 General: Appears in no apparent distress. Behavior is calm, cooperative. Pain: Denies pain. Neuro: Level of Consciousness is awake, alert, obeys commands. GI: No signs and/or symptoms were reported involving the gastrointestinal system. Abdomen is round non-distended. 11:11 Reassessment: Pt states "I was sick yesterday with nausea and vomiting but today I am la1 perfectly fine". Vital Signs: 11:08 BP 154 / 75; Pulse 92; Resp 16; Temp 98.6; Pulse Ox 98% on R/A; Weight 145.15 kg; la1 Height 5 ft. 9 in. (175.26 cm); 11:08 Body Mass Index 47.26 (145.15 kg, 175.26 cm) la1 ED Course: 10:58 Patient arrived in ED. cf2 11:07 Arm band placed on left wrist. la1 11:08 Triage completed. la1 11:09 Patient has correct armband on for positive identification. la1 11:09 No provider procedures requiring assistance completed. Patient did not have IV access la1 during this emergency room visit. 11:14 Mag[facility]her [facility]-C [facility]. kb 11:14 Sunny Correia MD is Attending Physician. kb Administered Medications: No medications were administered Outcome: 11:16 Discharge ordered by . kb 11:21 Patient left the ED. la1 Signatures: Maggy Maher FNP-C FNP-Ckb Attema, Lee, RN RN la1 Mamta Ferreira cf2
--- NOTE | 2018-10-28 11:18 | EDPHYS ---
Physician Documentation [facility] Name: Tod Mcgovern II Age: 32 yrs Sex: Male : 1985 Arrival Date: 10/28/2018 Time: 10:58 Bed Waiting Private MD: ED Physician Sunny Correia HPI: 10/28 12:46 This 32 yrs old Male presents to ER via Ambulatory with complaints of kb Nausea/Vomiting. 12:46 "I need a work release and I don't have a doctor to go to to get one.". The patient has kb not experienced similar symptoms in the past. The patient has not recently seen a physician. When I asked pt what his symptoms were he reported "absolutely none." States he had some vomiting yesterday, but that has resolved. STates "My boss won't let me come back without a work release so that is the only reason I'm here.". Historical: - Allergies: 11:07 aloe vera; la1 - PMHx: 11:07 Migraines; la1 - Immunization history:: Adult Immunizations up to date. - Social history:: Smoking status: Patient uses tobacco products, smokes one-half pack cigarettes per day. - Ebola Screening: : No symptoms or risks identified at this time. ROS: 12:46 Constitutional: Negative for fever, chills, and weight loss, ENT: Negative for injury, kb pain, and discharge, Neck: Negative for injury, pain, and swelling, Cardiovascular: Negative for chest pain, palpitations, and edema, Respiratory: Negative for shortness of breath, cough, wheezing, and pleuritic chest pain, Abdomen/GI: Negative for abdominal pain, nausea, vomiting, diarrhea, and constipation, Back: Negative for injury and pain, : Negative for injury, bleeding, discharge, and swelling, MS/Extremity: Negative for injury and deformity, Skin: Negative for injury, rash, and discoloration, Neuro: Negative for headache, weakness, numbness, tingling, and seizure. Exam: 12:46 Constitutional: This is a well developed, well nourished patient who is awake, alert, kb and in no acute distress. Head/Face: Normocephalic, atraumatic. ENT: Nares patent. No nasal discharge, no septal abnormalities noted. Tympanic membranes are normal and external auditory canals are clear. Oropharynx with no redness, swelling, or masses, exudates, or evidence of obstruction, uvula midline. Mucous membranes moist. Neck: Trachea midline, no thyromegaly or masses palpated, and no cervical lymphadenopathy. Supple, full range of motion without nuchal rigidity, or vertebral point tenderness. No Meningismus. Chest/axilla: Normal chest wall appearance and motion. Nontender with no deformity. No lesions are appreciated. Cardiovascular: Regular rate and rhythm with a normal S1 and S2. No gallops, murmurs, or rubs. Normal PMI, no JVD. No pulse deficits. Respiratory: Lungs have equal breath sounds bilaterally, clear to auscultation and percussion. No rales, rhonchi or wheezes noted. No increased work of breathing, no retractions or nasal flaring. Abdomen/GI: Soft, non-tender, with normal bowel sounds. No distension or tympany. No guarding or rebound. No evidence of tenderness throughout. Skin: Warm, dry with normal turgor. Normal color with no rashes, no lesions, and no evidence of cellulitis. MS/ Extremity: Pulses equal, no cyanosis. Neurovascular intact. Full, normal range of motion. Neuro: Awake and alert, GCS 15, oriented to person, place, time, and situation. Cranial nerves II-XII grossly intact. Motor strength 5/5 in all extremities. Sensory grossly intact. Cerebellar exam normal. Normal gait. Vital Signs: 11:08 BP 154 / 75; Pulse 92; Resp 16; Temp 98.6; Pulse Ox 98% on R/A; Weight 145.15 kg; la1 Height 5 ft. 9 in. (175.26 cm); 11:08 Body Mass Index 47.26 (145.15 kg, 175.26 cm) la1 MDM: 11:15 Data reviewed: vital signs, nurses notes. Data interpreted: Pulse oximetry: on room air kb is 98 %. Interpretation: normal. Counseling: I had a detailed discussion with the patient and/or guardian regarding: the historical points, exam findings, and any diagnostic results supporting the discharge/admit diagnosis, the need for outpatient follow up, a family practitioner, to return to the emergency department if symptoms worsen or persist or if there are any questions or concerns that arise at home. 11:16 Patient medically screened. kb Administered Medications: No medications were administered Disposition: 11:15 Encounter for work release. kb 14:10 Co-signature as Attending Physician, Sunny Correia MD. rn Disposition: 10/28/18 11:16 Discharged to Home. Impression: Encounter for screening, unspecified. - Condition is Stable. - Medication Reconciliation Form, Thank You Letter, Antibiotic Education, Prescription Opioid Use form. - Follow up: Emergency Department; When: As needed; Reason: Worsening of condition. Follow up: Private Physician; When: 2 - 3 days; Reason: Recheck today's complaints, Continuance of care, Re-evaluation by your physician. Signatures: Maggy Maher, SEAL EXTRUSION OPERATOR-C SEAL EXTRUSION OPERATOR-Ckb Sunny Correia MD MD rn Javad Ghosh RN RN la1 Corrections: (The following items were deleted from the chart) 11:21 11:16 10/28/2018 11:16 Discharged to Home. Impression: Encounter for screening, la1 unspecified. Condition is Stable. Forms are Medication Reconciliation Form, Thank You Letter, Antibiotic Education, Prescription Opioid Use. Follow up: Emergency Department; When: As needed; Reason: Worsening of condition. Follow up: Private Physician; When: 2 - 3 days; Reason: Recheck today's complaints, Continuance of care, Re-evaluation by your physician. kb
[2018-10-28 11:28] VITALS: BP 154/75; TEMP 98.6; O2SAT 98
== END 2018-10-28 11:21 | disposition home or self-care (01) ==
LOC: ER 10:53
DX: R11.2 Nausea with vomiting, unspecified (principal); F17.210 Nicotine dependence, cigarettes, uncomplicated
CPT/HCPCS: 99281

== ENCOUNTER 2018-12-04 16:28 | Emergency (ER) | payer SELFPAY ==
[2018-12-04] MEDS ORDERED: NA CHLORIDE 0.9% 1,000 ML ONE (17:20)
[2018-12-04 17:33] LABS: Absolute Lymphocytes (CBC) 3.1 K/uL (0.7-4.9); Basophils % 0.9 % (0-1.3); Hematocrit 48.8 % (39.6-49.0); Lymphocytes % 29.4 % (15.3-44.8); MPV 8.3 fL (7.6-11.3); RBC Red Blood Cell Count 5.58 M/uL (4.33-5.43)
[2018-12-04] MEDS ORDERED: IBUPROFEN 400 MG TAB ONE (17:38)
[2018-12-04] MEDS ORDERED: ONDANSETRON 4 MG/2 ML VIAL ONE (17:38)
[2018-12-04 18:05] LABS: Urine Blood NEGATIVE (NEG); Urine Glucose NEGATIVE (NEG); Urine Protein NEGATIVE (NEG); Urine Specific Gravity 1.025 (1.005-1.030)
--- NOTE | 2018-12-04 18:17 | EDPHYS ---
Physician Documentation [facility] Name: Tod Mcgovern II Age: 32 yrs Sex: Male : 1985 Arrival Date: 12/04/2018 Time: 16:31 Bed 13 Private MD: ED Physician Sunny Correia HPI: 12/04 17:19 This 32 yrs old Male presents to ER via Ambulatory with complaints of kb Headache, Nausea, Vomiting. 17:19 The patient presents to the emergency department with nausea, vomiting. Onset: The kb symptoms/episode began/occurred today, at 12:00. Possible causes: unknown. The symptoms are aggravated by nothing. The symptoms are alleviated by nothing. Associated signs and symptoms: Pertinent positives: nausea, vomiting. Severity of symptoms: At their worst the symptoms were mild moderate in the emergency department the symptoms are unchanged. The patient has not experienced similar symptoms in the past. The patient has not recently seen a physician. Pt reports he thinks he got dehydrated while working last night, then woke up feeling bad. Reports nausea, vomiting, headache and malaise. Historical: - Allergies: 16:56 aloe vera; aj1 - Home Meds: 16:56 None [Active]; aj1 - PMHx: 16:56 Migraines; aj1 - PSHx: 16:56 None; aj1 - Immunization history:: Flu vaccine is not up to date. - Social history:: Smoking status: Patient uses tobacco products, smokes two packs cigarettes per day. - Ebola Screening: : Patient denies travel to an Ebola-affected area in the 21 days before illness onset. ROS: 17:18 ENT: Negative for injury, pain, and discharge, Neck: Negative for injury, pain, and kb swelling, Cardiovascular: Negative for chest pain, palpitations, and edema, Respiratory: Negative for shortness of breath, cough, wheezing, and pleuritic chest pain, Back: Negative for injury and pain, : Negative for injury, bleeding, discharge, and swelling, MS/Extremity: Negative for injury and deformity, Skin: Negative for injury, rash, and discoloration. 17:18 Constitutional: Positive for body aches, fatigue, malaise. 17:18 Abdomen/GI: Positive for abdominal pain, nausea and vomiting. 17:18 Neuro: Positive for headache. Exam: 17:18 Constitutional: This is a well developed, well nourished patient who is awake, alert, kb and in no acute distress. Head/Face: Normocephalic, atraumatic. ENT: Nares patent. No nasal discharge, no septal abnormalities noted. Tympanic membranes are normal and external auditory canals are clear. Oropharynx with no redness, swelling, or masses, exudates, or evidence of obstruction, uvula midline. Mucous membranes moist. Neck: Trachea midline, no thyromegaly or masses palpated, and no cervical lymphadenopathy. Supple, full range of motion without nuchal rigidity, or vertebral point tenderness. No Meningismus. Chest/axilla: Normal chest wall appearance and motion. Nontender with no deformity. No lesions are appreciated. Cardiovascular: Regular rate and rhythm with a normal S1 and S2. No gallops, murmurs, or rubs. Normal PMI, no JVD. No pulse deficits. Respiratory: Lungs have equal breath sounds bilaterally, clear to auscultation and percussion. No rales, rhonchi or wheezes noted. No increased work of breathing, no retractions or nasal flaring. Abdomen/GI: Soft, non-tender, with normal bowel sounds. No distension or tympany. No guarding or rebound. No evidence of tenderness throughout. Skin: Warm, dry with normal turgor. Normal color with no rashes, no lesions, and no evidence of cellulitis. MS/ Extremity: Pulses equal, no cyanosis. Neurovascular intact. Full, normal range of motion. Neuro: Awake and alert, GCS 15, oriented to person, place, time, and situation. Cranial nerves II-XII grossly intact. Motor strength 5/5 in all extremities. Sensory grossly intact. Cerebellar exam normal. Normal gait. Vital Signs: 16:56 BP 138 / 89; Pulse 87; Resp 18; Temp 98.2; Pulse Ox 97% on R/A; Weight 145.15 kg (R); aj1 Height 5 ft. 10 in. (177.80 cm) (R); 17:45 BP 130 / 63 Supine; Pulse 66; Resp 16 S; Pulse Ox 96% on R/A; jl7 17:47 BP 132 / 75 Sitting; Pulse 76; jl7 17:48 BP 139 / 69 Standing; Pulse 70; jl7 18:30 BP 134 / 70; Pulse 75; Resp 16 S; Pulse Ox 100% on R/A; jl7 16:56 Body Mass Index 45.91 (145.15 kg, 177.80 cm) aj1 Fletcher Coma Score: 17:18 Eye Response: spontaneous(4). Verbal Response: oriented(5). Motor Response: obeys kb commands(6). Total: 15. MDM: 17:00 Patient medically screened. kb 17:18 Data reviewed: vital signs, nurses notes. Data interpreted: Pulse oximetry: on room air kb is 97 %. Interpretation: normal. 18:14 Counseling: I had a detailed discussion with the patient and/or guardian regarding: the kb historical points, exam findings, and any diagnostic results supporting the discharge/admit diagnosis, lab results, the need for outpatient follow up, a family practitioner, to return to the emergency department if symptoms worsen or persist or if there are any questions or concerns that arise at home. 12/04 17:04 Order name: CBC with Diff; Complete Time: 18:10 kb 12/04 17:04 Order name: Basic Metabolic Panel; Complete Time: 17:56 kb 12/04 17:04 Order name: CPK; Complete Time: 17:56 kb 12/04 17:04 Order name: Flu; Complete Time: 18:05 kb 12/04 17:33 Order name: Urine Dipstick--Ancillary (enter results); Complete Time: 18:10 eb 12/04 17:00 Order name: Orthostatics; Complete Time: 18:16 kb 12/04 17:04 Order name: IV Start; Complete Time: 18:16 kb 12/04 17:04 Order name: Urine Dipstick-Ancillary (obtain specimen); Complete Time: 18:16 kb Administered Medications: 17:30 Drug: NS 0.9% 1000 ml Route: IV; Rate: 1000 ml; Site: left antecubital; jl7 18:40 Follow up: IV Status: Completed infusion jl7 17:39 Drug: Motrin 800 mg Route: PO; jl7 18:40 Follow up: Response: No adverse reaction; Pain is decreased jl7 17:40 Drug: Zofran 4 mg Route: IVP; Site: left antecubital; jl7 18:41 Follow up: Response: No adverse reaction; Nausea is decreased jl7 Disposition: 18:44 Co-signature as Attending Physician, Sunny Correia MD. rn Disposition: 12/04/18 18:15 Discharged to Home. Impression: Nausea and vomiting, Malaise and fatigue. - Condition is Stable. - Discharge Instructions: Nausea and Vomiting, Adult, [id number]. - Work release form, Medication Reconciliation Form, Thank You Letter, Antibiotic Education, Prescription Opioid Use form. - Follow up: Emergency Department; When: As needed; Reason: Worsening of condition. Follow up: Private Physician; When: 2 - 3 days; Reason: Recheck today's complaints, Continuance of care, Re-evaluation by your physician. Signatures: Dispatcher [employer] EDMS Maggy Maher, BUSINESS MACHINE MECHANIC-C BUSINESS MACHINE MECHANIC-Ckb Betsy Escalante RN RN aj1 Sunny Correia MD MD rn Leal, Jahala, RN RN jl7 Corrections: (The following items were deleted from the chart) 18:42 18:15 12/04/2018 18:15 Discharged to Home. Impression: Nausea and vomiting; Malaise and jl7 fatigue. Condition is Stable. Forms are Medication Reconciliation Form, Thank You Letter, Antibiotic Education, Prescription Opioid Use. Follow up: Emergency Department; When: As needed; Reason: Worsening of condition. Follow up: Private Physician; When: 2 - 3 days; Reason: Recheck today's complaints, Continuance of care, Re-evaluation by your physician. kb
--- NOTE | 2018-12-04 18:17 | ER ---
Nurse's Notes [facility] Name: Tod Mcgovern II Age: 32 yrs Sex: Male : 1985 Arrival Date: 12/04/2018 Time: 16:31 Bed 13 Private MD: Diagnosis: Nausea and vomiting;Malaise and fatigue Presentation: 12/04 16:54 Presenting complaint: Patient states: "I feed dehydrated and run down. I tried to drink aj1 as much as I could, but we were in chemical suits so I couldn't drink that much. I've been up for 2 hours and I have been vomiting. I have a horrible headache. I feel miserable" Denies fever. Transition of care: patient was not received from another setting of care. Onset of symptoms was December 04, 2018. Risk Assessment: Do you want to hurt yourself or someone else? Patient reports no desire to harm self or others. Initial Sepsis Screen: Does the patient meet any 2 criteria? No. Patient's initial sepsis screen is negative. Does the patient have a suspected source of infection? No. Patient's initial sepsis screen is negative. Care prior to arrival: None. 16:54 Method Of Arrival: Ambulatory aj1 16:54 Acuity: ESTEVAN 3 aj1 Triage Assessment: 16:56 Headache History: The patient has had previous headaches and this one is less severe aj1 than previous episodes. General: Appears in no apparent distress. comfortable, Behavior is calm, cooperative, appropriate for age. Pain: Pain currently is 6 out of 10 on a pain scale. Pain began 2 hours ago. Also complains of nausea. Neuro: Level of Consciousness is awake, alert, obeys commands. Historical: - Allergies: 16:56 aloe vera; aj1 - Home Meds: 16:56 None [Active]; aj1 - PMHx: 16:56 Migraines; aj1 - PSHx: 16:56 None; aj1 - Immunization history:: Flu vaccine is not up to date. - Social history:: Smoking status: Patient uses tobacco products, smokes two packs cigarettes per day. - Ebola Screening: : Patient denies travel to an Ebola-affected area in the 21 days before illness onset. Screenin:40 Abuse screen: Denies threats or abuse. Denies injuries from another. Nutritional jl7 screening: No deficits noted. Tuberculosis screening: No symptoms or risk factors identified. Fall Risk IV access (20 points). Total Bettencourt Fall Scale indicates No Risk (0-24 pts). Assessment: 17:15 General: Appears in no apparent distress. uncomfortable, Behavior is calm, cooperative. jl7 Pain: Complains of pain in HULL Pain currently is 5 out of 10 on a pain scale. Quality of pain is described as dull, throbbing. Neuro: Level of Consciousness is awake, alert, obeys commands, Oriented to person, place, time, situation. Cardiovascular: Patient's skin is warm and dry. Respiratory: Airway is patent Respiratory effort is even, unlabored, Respiratory pattern is regular, symmetrical. GI: Reports nausea, vomiting, Patient currently denies constipation, diarrhea. : No signs and/or symptoms were reported regarding the genitourinary system. EENT: No signs and/or symptoms were reported regarding the EENT system. Derm: Skin is pink, warm \\T\\ dry. Musculoskeletal: No signs and/or symptoms reported regarding the musculoskeletal system. 18:40 Reassessment: Patient appears in no apparent distress at this time. Patient and/or jl7 family updated on plan of care and expected duration. Pain level reassessed. Patient is alert, oriented x 3, equal unlabored respirations, skin warm/dry/pink. Patient states feeling better. Patient states symptoms have improved. Vital Signs: 16:56 BP 138 / 89; Pulse 87; Resp 18; Temp 98.2; Pulse Ox 97% on R/A; Weight 145.15 kg (R); aj1 Height 5 ft. 10 in. (177.80 cm) (R); 17:45 BP 130 / 63 Supine; Pulse 66; Resp 16 S; Pulse Ox 96% on R/A; jl7 17:47 BP 132 / 75 Sitting; Pulse 76; jl7 17:48 BP 139 / 69 Standing; Pulse 70; jl7 18:30 BP 134 / 70; Pulse 75; Resp 16 S; Pulse Ox 100% on R/A; jl7 16:56 Body Mass Index 45.91 (145.15 kg, 177.80 cm) aj1 Jimmie Coma Score: 17:18 Eye Response: spontaneous(4). Verbal Response: oriented(5). Motor Response: obeys kb commands(6). Total: 15. ED Course: 16:31 Patient arrived in ED. rg4 16:56 Triage completed. aj1 16:56 Arm band placed on Patient placed in an exam room. aj1 17:00 Mag[facility]-C [facility] kb 17:00 Sunny Correia MD is Attending Physician. kb 17:13 Miles Dimas, RN is Primary Nurse. jl7 17:15 Patient has correct armband on for positive identification. Bed in low position. Call jl7 light in reach. Side rails up X 1. Pulse ox on. NIBP on. 17:30 Initial lab(s) drawn, by me, sent to lab. Flu and/or RSV swab sent to lab. Inserted jl7 saline lock: 20 gauge in left antecubital area, using aseptic technique. Blood collected. 18:40 No provider procedures requiring assistance completed. IV discontinued, intact, jl7 bleeding controlled, No redness/swelling at site. Pressure dressing applied. Administered Medications: 17:30 Drug: NS 0.9% 1000 ml Route: IV; Rate: 1000 ml; Site: left antecubital; jl7 18:40 Follow up: IV Status: Completed infusion jl7 17:39 Drug: Motrin 800 mg Route: PO; jl7 18:40 Follow up: Response: No adverse reaction; Pain is decreased jl7 17:40 Drug: Zofran 4 mg Route: IVP; Site: left antecubital; jl7 18:41 Follow up: Response: No adverse reaction; Nausea is decreased jl7 Outcome: 18:15 Discharge ordered by . kb 18:40 Discharged to home ambulatory. jl7 18:40 Condition: stable 18:40 Discharge instructions given to patient, Instructed on discharge instructions, follow up and referral plans. Demonstrated understanding of instructions, follow-up care. 18:42 Patient left the ED. jl7 Signatures: Maggy Maher FNP-C FNP-Betsy Melgoza RN RN Emily Vora rg4 Miles Dimas, RN RN jl7
[2018-12-04 19:09] VITALS: TEMP 98.2
[2018-12-04 19:14] VITALS: BP 134/70; O2SAT 100
== END 2018-12-04 18:42 | disposition home or self-care (01) ==
LOC: ER 16:28
DX: R11.2 Nausea with vomiting, unspecified (principal); R53.81 Other malaise; R53.83 Other fatigue; F17.210 Nicotine dependence, cigarettes, uncomplicated; Z88.8 Allergy status to other drugs, medicaments and biological substances
CPT/HCPCS: 36415; 80048; 81003; 82550; 85025; 87804; 96361; 96374; 99284; J2405; J7030

== ENCOUNTER 2019-04-22 15:57 | Emergency (ER) | payer SELFPAY ==
[2019-04-22] MEDS ORDERED: METOCLOPRAMIDE 10 MG/2mL INJ ONE (16:51)
[2019-04-22] MEDS ORDERED: DIPHENHYDRAMINE 50 MG/ML VIAL ONE (16:52)
[2019-04-22] MEDS ORDERED: KETOROLAC 30 MG/ML INJ ONE (16:52)
[2019-04-22] MEDS ORDERED: NA CHLORIDE 0.9% 50 ML IV ONE (16:52)
[2019-04-22] MEDS ORDERED: NA CHLORIDE 0.9% 1,000 ML ONE (16:52)
[2019-04-22] MEDS ORDERED: ONDANSETRON 4 MG/2 ML VIAL ONE (16:52)
[2019-04-22] MEDS ORDERED: dexAMETHasone 4 MG/ML VIAL ONE (16:54)
--- NOTE | 2019-04-22 17:49 | EDPHYS ---
Physician Documentation [facility] Name: Tod Mcgovern II Age: 33 yrs Sex: Male : 1985 Arrival Date: 04/22/2019 Time: 15:59 Bed 25 Private MD: ED Physician Zelalem Ruiz HPI: 04/22 16:50 This 33 yrs old Male presents to ER via Ambulatory with complaints of cp Headache. 16:50 The patient complains of pain to the top of head. The patient describes the headache as cp aching, constant. Onset: The symptoms/episode began/occurred this morning. Associated signs and symptoms: Pertinent positives: nausea, Photophobia Pertinent negatives: fever, neck stiffness, paresthesias, sinus congestion, sinus tenderness, vomiting, weakness. Severity of symptoms: in the emergency department the pain a " 7" out of "10". Headache History: The patient has had previous headaches and this one is similar to previous episodes, and this one is less severe than previous episodes. Historical: - Allergies: 16:12 aloe vera; ca1 - Home Meds: 16:12 None [Active]; ca1 - PMHx: 16:12 Migraines; ca1 - PSHx: 16:12 None; ca1 - Immunization history:: Adult Immunizations. - Coronavirus screen:: The patient has NOT traveled to [place] in the past 14 days. The patient has NOT had contact with known/suspected case of Coronavirus?. - Social history:: Smoking status: Patient reports the use of cigarette tobacco products, smokes one pack cigarettes per day. chewing tobacco. - Ebola Screening: : Patient negative for fever greater than or equal to 101.5 degrees Fahrenheit, and additional compatible Ebola Virus Disease symptoms Patient denies exposure to infectious person Patient denies travel to an Ebola-affected area in the 21 days before illness onset No symptoms or risks identified at this time. ROS: 16:55 Constitutional: Negative for body aches, chills, fever, poor PO intake. cp 16:55 Eyes: Positive for photophobia, Negative for discharge, redness. cp 16:55 ENT: Negative for drainage from ear(s), ear pain, sore throat, difficulty swallowing, difficulty handling secretions. 16:55 Cardiovascular: Negative for chest pain. 16:55 Respiratory: Negative for cough, shortness of breath, wheezing. 16:55 Abdomen/GI: Positive for nausea, Negative for abdominal pain, vomiting, diarrhea, constipation. 16:55 Skin: Negative for rash. 16:55 Neuro: Positive for headache, Negative for altered mental status, weakness. 16:55 All other systems are negative. Exam: 17:05 Constitutional: The patient appears in no acute distress, alert, awake, non-toxic, well cp developed, well nourished, obese. 17:05 Head/Face: Normocephalic, atraumatic. cp 17:05 Eyes: Periorbital structures: appear normal, Pupils: equal, round, and reactive to light and accomodation, Extraocular movements: intact throughout, Conjunctiva: normal, no exudate, no injection, Sclera: no appreciated abnormality, Lids and lashes: appear normal, bilaterally. 17:05 ENT: External ear(s): are unremarkable, Ear canal(s): are normal, clear, TM's: bulging, is not appreciated, bilaterally, dullness, bilaterally, erythema, is not appreciated, bilaterally, Nose: is normal, Mouth: Lips: moist, Oral mucosa: pink and intact, moist, Posterior pharynx: is normal, airway is patent, no erythema, no exudate. 17:05 Neck: ROM/movement: is normal, is supple, without pain, no range of motions limitations, no meningismus, no nuchal rigidity, Lymph nodes: no appreciated lymphadenopathy. 17:05 Chest/axilla: Inspection: normal, Palpation: is normal, no crepitus, no tenderness. 17:05 Cardiovascular: Rate: normal, Rhythm: regular. 17:05 Respiratory: the patient does not display signs of respiratory distress, Respirations: normal, no use of accessory muscles, no retractions, labored breathing, is not present, Breath sounds: are clear throughout, no decreased breath sounds, no stridor, no wheezing. 17:05 Abdomen/GI: Exam negative for discomfort, distension, guarding, Inspection: abdomen appears normal. 17:05 Neuro: Orientation: to person, place \\T\\ time. Mentation: is normal, Cerebellar function: is grossly normal, Motor: moves all fours, strength is normal, Sensation: is normal. Vital Signs: 16:12 BP 152 / 78; Pulse 70; Resp 16 S; Temp 97.8(O); Pulse Ox 98% on R/A; Weight 140.61 kg ca1 (R); Height 5 ft. 9 in. (175.26 cm) (R); 16:12 Body Mass Index 45.78 (140.61 kg, 175.26 cm) ca1 MDM: 16:40 Patient medically screened. cp 17:47 Data reviewed: vital signs, nurses notes. cp 17:47 Counseling: I had a detailed discussion with the patient and/or guardian regarding: the cp historical points, exam findings, and any diagnostic results supporting the discharge/admit diagnosis, to return to the emergency department if symptoms worsen or persist or if there are any questions or concerns that arise at home. Response to treatment: the patient's symptoms have markedly improved after treatment, and as a result, I will discharge patient. 04/22 16:45 Order name: IV; Complete Time: 17:33 cp Administered Medications: 17:15 Drug: NS 0.9% 1000 ml Route: IV; Rate: 1 bolus; Site: left antecubital; vc 21:42 Follow up: IV Status: Completed infusion; IV Intake: 300ml vc 17:15 Drug: TORadol - Ketorolac 15 mg Route: IVP; Site: left antecubital; vc 18:00 Follow up: Response: No adverse reaction; Pain is decreased vc 17:15 Drug: Decadron - Dexamethasone 10 mg Route: IVP; Site: left antecubital; vc 18:00 Follow up: Response: No adverse reaction; Pain is decreased vc 17:15 Drug: Zofran 4 mg Route: IVP; Site: left antecubital; vc 18:00 Follow up: Response: No adverse reaction; Pain is decreased vc 17:15 Drug: Reglan 10 mg Route: IVP; Site: left antecubital; vc 18:00 Follow up: Response: No adverse reaction; Pain is decreased vc 17:15 Drug: Benadryl 25 mg Route: IVP; Site: left antecubital; vc 18:00 Follow up: Response: No adverse reaction; Pain is decreased vc Disposition: 18:00 Chart complete. cp 04/23 07:02 Co-signature as Attending Physician, Zelalem Ruiz MD I agree with the assessment and kdr plan of care. Disposition: 04/22/19 17:48 Discharged to Home. Impression: Headache. - Condition is Stable. - Discharge Instructions: Migraine Headache. - Prescriptions for Fiorinal 50- 325-40 mg Oral Capsule - take 1 capsule by ORAL route every 4 hours As needed - not to exceed 6 capsules per day; 20 capsule. Ibuprofen 800 mg Oral Tablet - take 1 tablet by ORAL route every 8 hours As needed take with food; 30 tablet. Zofran 4 mg Oral Tablet - take 1 tablet by ORAL route every 12 hours As needed; 20 tablet. - Medication Reconciliation Form, Thank You Letter, Antibiotic Education, Prescription Opioid Use, Work release form form. - Follow up: Private Physician; When: 1 - 2 days; Reason: Worsening of condition. - Problem is an acute exacerbation. - Symptoms have improved. Signatures: Zelalem Ruiz MD MD kdr Cesar Gonzalez PA PA cp Lizy Quintero RN RN ca1 Valeria Lobo RN RN vc Corrections: (The following items were deleted from the chart) 04/22 17:55 17:48 04/22/2019 17:48 Discharged to Home. Impression: Headache. Condition is Stable. vc Forms are Work release form, Medication Reconciliation Form, Thank You Letter, Antibiotic Education, Prescription Opioid Use. Follow up: Private Physician; When: 1 - 2 days; Reason: Worsening of condition. Problem is an acute exacerbation. Symptoms have improved. cp
--- NOTE | 2019-04-22 17:49 | ER ---
Nurse's Notes [facility] Name: Tod Mcgovern II Age: 33 yrs Sex: Male : 1985 Arrival Date: 04/22/2019 Time: 15:59 Bed 25 Private MD: Diagnosis: Headache Presentation: 04/22 16:09 Presenting complaint: Patient states: Severe migraine since this morning around 0900. ca1 Reports nausea and light sensitivity. Reports hx of migraines. Transition of care: patient was not received from another setting of care. Onset of symptoms was April 22, 2019. Risk Assessment: Do you want to hurt yourself or someone else? Patient reports no desire to harm self or others. Initial Sepsis Screen: Does the patient meet any 2 criteria? No. Patient's initial sepsis screen is negative. Does the patient have a suspected source of infection? No. Patient's initial sepsis screen is negative. Care prior to arrival: None. 16:09 Method Of Arrival: Ambulatory ca1 16:09 Acuity: ESTEVAN 3 ca1 Triage Assessment: 16:45 Headache History: The patient has had previous headaches and this one is less severe vc than previous episodes. General: Appears in no apparent distress. uncomfortable, Behavior is calm, cooperative, appropriate for age. Pain: Complains of pain in head Pain currently is 7 out of 10 on a pain scale. level that patient reports is acceptable is 5 out of 10 on a pain scale. Pain began gradually, Also complains of nausea. EENT: No deficits noted. Neuro: Level of Consciousness is awake, alert, obeys commands, Oriented to person, place, time. Cardiovascular: Patient's skin is warm and dry. Respiratory: Airway is patent Respiratory effort is even, unlabored, Respiratory pattern is regular, symmetrical. GI: No signs and/or symptoms were reported involving the gastrointestinal system. : No signs and/or symptoms were reported regarding the genitourinary system. Derm: Skin temperature is warm. Musculoskeletal: Range of motion: intact in all extremities. Historical: - Allergies: 16:12 aloe vera; ca1 - Home Meds: 16:12 None [Active]; ca1 - PMHx: 16:12 Migraines; ca1 - PSHx: 16:12 None; ca1 - Immunization history:: Adult Immunizations. - Coronavirus screen:: The patient has NOT traveled to [place] in the past 14 days. The patient has NOT had contact with known/suspected case of Coronavirus?. - Social history:: Smoking status: Patient reports the use of cigarette tobacco products, smokes one pack cigarettes per day. chewing tobacco. - Ebola Screening: : Patient negative for fever greater than or equal to 101.5 degrees Fahrenheit, and additional compatible Ebola Virus Disease symptoms Patient denies exposure to infectious person Patient denies travel to an Ebola-affected area in the 21 days before illness onset No symptoms or risks identified at this time. Screenin:33 Abuse screen: Denies threats or abuse. Nutritional screening: No deficits noted. vc Tuberculosis screening: No symptoms or risk factors identified. Fall Risk None identified. Assessment: 16:45 Reassessment: See triage assessment. vc 17:37 Reassessment: Patient states feeling better. Patient states symptoms have improved. vc 17:54 Reassessment: Patient and/or family updated on plan of care and expected duration. Pain vc level reassessed. Patient is alert, oriented x 3, equal unlabored respirations, skin warm/dry/pink. Patient states pain is tolerable. Patient states feeling better. Patient states symptoms have improved. Pain: Complains of pain in top of head and forehead Pain currently is 5 out of 10 on a pain scale. Vital Signs: 16:12 BP 152 / 78; Pulse 70; Resp 16 S; Temp 97.8(O); Pulse Ox 98% on R/A; Weight 140.61 kg ca1 (R); Height 5 ft. 9 in. (175.26 cm) (R); 16:12 Body Mass Index 45.78 (140.61 kg, 175.26 cm) ca1 ED Course: 15:59 Patient arrived in ED. as 16:10 Triage completed. ca1 16:12 Arm band placed on right wrist. ca1 16:19 Maggy Maher FNP-C is PHCP. kb 16:19 Zelalem Ruiz MD is Attending Physician. kb 16:31 Cesar Gonzalez PA is PHCP. cp 16:31 Zelalem Ruiz MD is Attending Physician. cp 16:41 Call light in reach. Noise minimized. Lights dimmed. Verbal reassurance given. Patient jp3 sitting on bedside chair. Pulse ox on. NIBP on. 16:42 Patient maintains SpO2 saturation greater than 95% on room air. jp3 16:44 Valeria Lobo, RN is Primary Nurse. vc 17:00 Inserted saline lock: 20 gauge in left antecubital area, using aseptic technique. vc 17:52 Removal of peripheral IV. Catheter intact, dressing applied. jp3 17:53 No provider procedures requiring assistance completed. IV discontinued, intact, vc bleeding controlled, No redness/swelling at site. Pressure dressing applied. Administered Medications: 17:15 Drug: NS 0.9% 1000 ml Route: IV; Rate: 1 bolus; Site: left antecubital; vc 21:42 Follow up: IV Status: Completed infusion; IV Intake: 300ml vc 17:15 Drug: TORadol - Ketorolac 15 mg Route: IVP; Site: left antecubital; vc 18:00 Follow up: Response: No adverse reaction; Pain is decreased vc 17:15 Drug: Decadron - Dexamethasone 10 mg Route: IVP; Site: left antecubital; vc 18:00 Follow up: Response: No adverse reaction; Pain is decreased vc 17:15 Drug: Zofran 4 mg Route: IVP; Site: left antecubital; vc 18:00 Follow up: Response: No adverse reaction; Pain is decreased vc 17:15 Drug: Reglan 10 mg Route: IVP; Site: left antecubital; vc 18:00 Follow up: Response: No adverse reaction; Pain is decreased vc 17:15 Drug: Benadryl 25 mg Route: IVP; Site: left antecubital; vc 18:00 Follow up: Response: No adverse reaction; Pain is decreased vc Outcome: 17:48 Discharge ordered by MD. cp 17:53 Discharged to home ambulatory, with significant other. vc 17:53 Condition: good 17:53 Discharge instructions given to patient, significant other, Instructed on discharge instructions, follow up and referral plans. medication usage, Demonstrated understanding of instructions, follow-up care, medications, Prescriptions given X 2. 17:55 Patient left the ED. vc Signatures: Maggy Maher, [place]-Carole Luna Corey, PA PA cp Pisarski, Jacob jp3 Lizy Quintero RN RN ca1 Valeria Lobo RN RN vc
== END 2019-04-22 17:55 | disposition home or self-care (01) ==
LOC: ER 15:57
DX: R51 Headache (principal); F17.210 Nicotine dependence, cigarettes, uncomplicated
CPT/HCPCS: 96361; 96374; 96375; 99284; J1200; J2405; J2765; J7030

== ENCOUNTER 2019-05-06 19:32 | Emergency (ER) | payer SELFPAY ==
[2019-05-06] MEDS ORDERED: ONDANSETRON 4 MG/2 ML VIAL ONE (20:20)
[2019-05-06] MEDS ORDERED: DICYCLOMINE HCL 10 MG CAP ONE (20:20)
[2019-05-06] MEDS ORDERED: NA CHLORIDE 0.9% 1,000 ML ONE (20:20)
[2019-05-06 20:28] LABS: Absolute Lymphocytes (CBC) 3.3 K/uL (0.7-4.9); Basophils % 1.3 % (0-1.3); Hematocrit 47.9 % (39.6-49.0); Lymphocytes % 34.3 % (15.3-44.8); MPV 8.4 fL (7.6-11.3); RBC Red Blood Cell Count 5.46 M/uL (4.33-5.43)
[2019-05-06 20:52] LABS: Albumin 4.3 g/dL (3.4-5.0); Bilirubin Direct 0.1 mg/dL (0-0.2); Bilirubin Total 0.7 mg/dL (0.2-1.0); Potassium 4.2 mmol/L (3.5-5.1); Protein, Total 7.8 g/dL (6.4-8.2)
--- NOTE | 2019-05-06 21:03 | EDPHYS ---
Physician Documentation [facility] Name: Tod Mcgovern II Age: 33 yrs Sex: Male : 1985 Arrival Date: 05/06/2019 Time: 19:35 Bed 28 Private MD: ED Physician Abdiaziz Lanier HPI: 05/06 21:01 This 33 yrs old Male presents to ER via Ambulatory with complaints of kb Nausea/Vomiting/Diarrhea. 21:01 The patient presents to the emergency department with nausea, vomiting, diarrhea, kb abdominal pain, described as crampy. Onset: The symptoms/episode began/occurred yesterday. Possible causes: sick contacts. The symptoms are aggravated by nothing. The symptoms are alleviated by nothing. Associated signs and symptoms: Pertinent positives: abdominal pain, diarrhea, nausea, vomiting. Severity of symptoms: At their worst the symptoms were moderate in the emergency department the symptoms are unchanged. The patient has not experienced similar symptoms in the past, but family has similar symptoms, son. The patient has not recently seen a physician. Pt reports n/v/d and abd cramps that started yesterday. Son had similar symptoms. Historical: - Allergies: 19:46 aloe vera; sg - PMHx: 19:46 Migraines; sg - PSHx: 19:46 None; sg - Immunization history:: Adult Immunizations up to date. - Social history:: Smoking status: Patient reports the use of cigarette tobacco products. ROS: 21:00 Constitutional: Negative for fever, chills, and weight loss, ENT: Negative for injury, kb pain, and discharge, Neck: Negative for injury, pain, and swelling, Cardiovascular: Negative for chest pain, palpitations, and edema, Respiratory: Negative for shortness of breath, cough, wheezing, and pleuritic chest pain, Back: Negative for injury and pain, MS/Extremity: Negative for injury and deformity, Skin: Negative for injury, rash, and discoloration, Neuro: Negative for headache, weakness, numbness, tingling, and seizure. 21:00 Abdomen/GI: Positive for nausea, vomiting, and diarrhea, abdominal cramps. Exam: 21:01 Constitutional: This is a well developed, well nourished patient who is awake, alert, kb and in no acute distress. Head/Face: Normocephalic, atraumatic. Neck: Trachea midline, no thyromegaly or masses palpated, and no cervical lymphadenopathy. Supple, full range of motion without nuchal rigidity, or vertebral point tenderness. No Meningismus. Chest/axilla: Normal chest wall appearance and motion. Nontender with no deformity. No lesions are appreciated. Cardiovascular: Regular rate and rhythm with a normal S1 and S2. No gallops, murmurs, or rubs. Normal PMI, no JVD. No pulse deficits. Respiratory: Lungs have equal breath sounds bilaterally, clear to auscultation and percussion. No rales, rhonchi or wheezes noted. No increased work of breathing, no retractions or nasal flaring. Abdomen/GI: Soft, non-tender, with normal bowel sounds. No distension or tympany. No guarding or rebound. No evidence of tenderness throughout. Back: No spinal tenderness. No costovertebral tenderness. Full range of motion. Skin: Warm, dry with normal turgor. Normal color with no rashes, no lesions, and no evidence of cellulitis. MS/ Extremity: Pulses equal, no cyanosis. Neurovascular intact. Full, normal range of motion. Neuro: Awake and alert, GCS 15, oriented to person, place, time, and situation. Cranial nerves II-XII grossly intact. Motor strength 5/5 in all extremities. Sensory grossly intact. Cerebellar exam normal. Normal gait. Vital Signs: 19:44 BP 142 / 80; Pulse 87; Resp 18; Temp 97.9; Pulse Ox 98% on R/A; sg 20:55 BP 136 / 74; Pulse 76; Resp 14; Temp 98.0(O); Pulse Ox 99% on R/A; Pain 0/10; ls4 MDM: 19:47 Patient medically screened. kb 20:59 Data reviewed: vital signs, nurses notes. Data interpreted: Pulse oximetry: on room air kb is 99 %. Interpretation: normal. Counseling: I had a detailed discussion with the patient and/or guardian regarding: the historical points, exam findings, and any diagnostic results supporting the discharge/admit diagnosis, lab results, the need for outpatient follow up, a family practitioner, to return to the emergency department if symptoms worsen or persist or if there are any questions or concerns that arise at home. 05/06 19:56 Order name: Basic Metabolic Panel; Complete Time: 20:59 kb 05/06 19:56 Order name: CBC with Diff; Complete Time: 20:41 kb 05/06 19:56 Order name: Hepatic Function; Complete Time: 20:59 kb 05/06 19:56 Order name: Lipase; Complete Time: 20:59 kb 05/06 19:56 Order name: Flu; Complete Time: 20:47 kb 05/06 19:56 Order name: IV Saline Lock; Complete Time: 20:26 kb 05/06 19:56 Order name: Labs collected and sent; Complete Time: 20:26 kb Administered Medications: 20:15 Drug: NS 0.9% 1000 ml Route: IV; Rate: 1000 ml; Site: left antecubital; ls4 20:51 Follow up: IV Status: Completed infusion; IV Intake: 1000ml ls4 20:15 Drug: Zofran (Ondansetron) 4 mg Route: IVP; Site: left antecubital; ls4 20:51 Follow up: Response: No adverse reaction; Marked relief of symptoms ls4 20:15 Drug: Bentyl 20 mg Route: PO; ls4 20:50 Follow up: Response: No adverse reaction; Marked relief of symptoms ls4 Disposition: 05/07 01:50 Co-signature as Attending Physician, Abdiaziz Lanier MD. pkl Disposition: 05/06/19 21:03 Discharged to Home. Impression: Nausea and vomiting, Diarrhea, unspecified. - Condition is Stable. - Discharge Instructions: Food Choices to Help Relieve Diarrhea, Adult, Viral Gastroenteritis, Adult, [id number]. - Prescriptions for Bentyl 20 mg Oral Tablet - take 1 tablet by ORAL route every 6 hours As needed; 20 tablet. Zofran 4 mg Oral Tablet - take 1 tablet by ORAL route every 6 hours As needed; 20 tablet. - Medication Reconciliation Form, Thank You Letter, Antibiotic Education, Prescription Opioid Use, Work release form form. - Follow up: Emergency Department; When: As needed; Reason: Worsening of condition. Follow up: Private Physician; When: 2 - 3 days; Reason: Recheck today's complaints, Continuance of care, Re-evaluation by your physician. Signatures: Dispatcher [employer] Maggy Harley, [place]-Cheo Smith RN RN sg Lam, MD MD mary Freed MyKena mw2 Inez Gross, RN RN ls4 Corrections: (The following items were deleted from the chart) 05/06 21:39 21:03 05/06/2019 21:03 Discharged to Home. Impression: Nausea and vomiting; Diarrhea, mw2 unspecified. Condition is Stable. Forms are Medication Reconciliation Form, Thank You Letter, Antibiotic Education, Prescription Opioid Use. Follow up: Emergency Department; When: As needed; Reason: Worsening of condition. Follow up: Private Physician; When: 2 - 3 days; Reason: Recheck today's complaints, Continuance of care, Re-evaluation by your physician. kb
--- NOTE | 2019-05-06 21:03 | ER ---
Nurse's Notes [facility] Name: Tod Mcgovern II Age: 33 yrs Sex: Male : 1985 Arrival Date: 05/06/2019 Time: 19:35 Bed 28 Private MD: Diagnosis: Nausea and vomiting;Diarrhea, unspecified Presentation: 05/06 19:44 Chief complaint: Patient states: Nausea/Vomiting/Diarrhea that started about three days sg ago, reports today symptoms have just gotten worse, states a family member was recently diagnosed with stomach virus. Coronavirus screen: The patient has NOT traveled to [place] in the past 14 days. The patient has NOT had contact with known and/or suspected case of Coronavirus. Ebola Screen: Patient negative for fever greater than or equal to 101.5 degrees Fahrenheit, and additional compatible Ebola Virus Disease symptoms Patient denies exposure to infectious person. Patient denies travel to an Ebola-affected area in the 21 days before illness onset. No symptoms or risks identified at this time. Initial Sepsis Screen: Does the patient meet any 2 criteria? No. Patient's initial sepsis screen is negative. Does the patient have a suspected source of infection? No. Patient's initial sepsis screen is negative. Risk Assessment: Do you want to hurt yourself or someone else? Patient reports no desire to harm self or others. 19:44 Method Of Arrival: Ambulatory sg 19:44 Acuity: ESTEVAN 3 sg 20:56 Onset of symptoms. ls4 Triage Assessment: 19:40 General: Behavior is cooperative. General: Appears in no apparent distress. comfortable.ls4 Historical: - Allergies: 19:46 aloe vera; sg - PMHx: 19:46 Migraines; sg - PSHx: 19:46 None; sg - Immunization history:: Adult Immunizations up to date. - Social history:: Smoking status: Patient reports the use of cigarette tobacco products. Screenin:23 Abuse screen: Denies threats or abuse. Denies injuries from another. Nutritional ls4 screening: No deficits noted. Tuberculosis screening: No symptoms or risk factors identified. Fall Risk None identified. Assessment: 19:40 General: Appears in no apparent distress. comfortable. ls4 19:40 Pain: Denies pain. Neuro: No deficits noted. Cardiovascular: No deficits noted. ls4 Respiratory: No deficits noted. GI: Abdomen is non-distended, obese, Bowel sounds present X 4 quads. Abd is soft and non tender X 4 quads. Reports nausea, vomiting. Vital Signs: 19:44 BP 142 / 80; Pulse 87; Resp 18; Temp 97.9; Pulse Ox 98% on R/A; sg 20:55 BP 136 / 74; Pulse 76; Resp 14; Temp 98.0(O); Pulse Ox 99% on R/A; Pain 0/10; ls4 ED Course: 19:35 Patient arrived in ED. ag3 19:40 Inez Gross, RN is Primary Nurse. ls4 19:46 Triage completed. sg 19:46 Maggy [facility]her [facility]C [facility]. kb 19:46 Abdiaziz Lanier MD is Attending Physician. kb 19:46 Arm band placed on. sg 19:46 Patient has correct armband on for positive identification. Bed in low position. Call ls4 light in reach. Side rails up X 1. 19:46 Pulse ox on. NIBP on. ls4 20:12 No provider procedures requiring assistance completed. Initial lab(s) drawn, by wa, ls4 sent to lab. Flu and/or RSV swab sent to lab. Inserted saline lock: 20 gauge in left antecubital area, using aseptic technique. Blood collected. 20:25 Flu Sent. ls4 Administered Medications: 20:15 Drug: NS 0.9% 1000 ml Route: IV; Rate: 1000 ml; Site: left antecubital; ls4 20:51 Follow up: IV Status: Completed infusion; IV Intake: 1000ml ls4 20:15 Drug: Zofran (Ondansetron) 4 mg Route: IVP; Site: left antecubital; ls4 20:51 Follow up: Response: No adverse reaction; Marked relief of symptoms ls4 20:15 Drug: Bentyl 20 mg Route: PO; ls4 20:50 Follow up: Response: No adverse reaction; Marked relief of symptoms ls4 Intake: 20:51 IV: 1000ml; Total: 1000ml. ls4 Outcome: 20:57 Discharged to home ambulatory, with family. ls4 20:57 Condition: stable 20:57 Discharge instructions given to patient, family, Instructed on discharge instructions, follow up and referral plans. safety practices, Demonstrated understanding of instructions, follow-up care. 21:03 Discharge ordered by . kb 21:39 Patient left the ED. mw2 Signatures: Maggy Maher FNP-C TACK MAKER-Cheo Smith RN RN sg Irena Sullivan mw2 Yuridia Cisneros ag3 Inez Gross, RN RN ls4 Corrections: (The following items were deleted from the chart) 20:23 20:21 General: Appears in no apparent distress. Behavior is calm, cooperative, ls4 ls4 20:56 20:55 BP 113 / 60; Pulse 73bpm; Resp 14bpm; Pulse Ox 99% RA; Temp 98.0F Oral; Pain ls4 05/17; ls4
[2019-05-06 21:56] VITALS: BP 136/74; TEMP 98; O2SAT 99
== END 2019-05-06 21:39 | disposition home or self-care (01) ==
LOC: ER 19:32
DX: R19.7 Diarrhea, unspecified (principal); F17.210 Nicotine dependence, cigarettes, uncomplicated; Z91.048 Other nonmedicinal substance allergy status
CPT/HCPCS: 36415; 80048; 80076; 83690; 85025; 87804; 96361; 96374; 99284; J2405; J7030

== ENCOUNTER 2019-05-27 12:14 | Emergency (ER) | payer SELFPAY ==
--- NOTE | 2019-05-27 13:22 | EDPHYS ---
Physician Documentation [facility] Name: Tod Mcgovern II Age: 33 yrs Sex: Male : 1985 Arrival Date: 05/27/2019 Time: 12:18 Bed 16 Private MD: ED Physician León Adkins HPI: 05/26 13:19 This 33 yrs old Male presents to ER via Ambulatory with complaints of kb Headache. 13:19 The patient complains of pain to the forehead. The patient describes the headache as kb constant. Associated signs and symptoms: Pertinent positives: Photophobia Pertinent negatives: altered mental status, dizziness, fever, malaise, nausea, neck stiffness, paresthesias, rash, sinus congestion, sinus tenderness, vision changes, vision loss, vomiting, weakness, vertigo. 13:20 Onset: The symptoms/episode began/occurred yesterday. Severity of symptoms: At its kb worst the pain was moderate, in the emergency department the pain is unchanged. Headache History: The patient has had previous headaches and this one is similar to previous episodes. The symptoms are alleviated by nothing. the symptoms are aggravated by lights. The patient has experienced similar episodes in the past. The patient has not recently seen a physician. Historical: - Allergies: 12:39 aloe vera; iw - Home Meds: 12:39 None [Active]; iw - PMHx: 12:39 Migraines; iw - PSHx: 12:39 None; iw - Immunization history:: Adult Immunizations not up to date. - Social history:: Smoking status: Patient reports the use of cigarette tobacco products, smokes one pack cigarettes per day. ROS: 13:20 Constitutional: Negative for fever, chills, and weight loss, Eyes: Negative for injury, kb pain, redness, and discharge, ENT: Negative for injury, pain, and discharge, Neck: Negative for injury, pain, and swelling, Cardiovascular: Negative for chest pain, palpitations, and edema, Respiratory: Negative for shortness of breath, cough, wheezing, and pleuritic chest pain, Abdomen/GI: Negative for abdominal pain, nausea, vomiting, diarrhea, and constipation, Back: Negative for injury and pain, MS/Extremity: Negative for injury and deformity, Skin: Negative for injury, rash, and discoloration. 13:20 Neuro: Positive for headache, Negative for altered mental status, dizziness, gait disturbance, hearing loss, loss of consciousness, numbness, seizure activity, speech changes, syncope, tinnitus, tremor, visual changes, weakness. Exam: 13:20 Constitutional: This is a well developed, well nourished patient who is awake, alert, kb and in no acute distress. Head/Face: Normocephalic, atraumatic. Eyes: Pupils equal round and reactive to light, extra-ocular motions intact. Lids and lashes normal. Conjunctiva and sclera are non-icteric and not injected. Cornea within normal limits. Periorbital areas with no swelling, redness, or edema. ENT: Nares patent. No nasal discharge, no septal abnormalities noted. Tympanic membranes are normal and external auditory canals are clear. Oropharynx with no redness, swelling, or masses, exudates, or evidence of obstruction, uvula midline. Mucous membranes moist. Neck: Trachea midline, no thyromegaly or masses palpated, and no cervical lymphadenopathy. Supple, full range of motion without nuchal rigidity, or vertebral point tenderness. No Meningismus. Chest/axilla: Normal chest wall appearance and motion. Nontender with no deformity. No lesions are appreciated. Cardiovascular: Regular rate and rhythm with a normal S1 and S2. No gallops, murmurs, or rubs. Normal PMI, no JVD. No pulse deficits. Respiratory: Lungs have equal breath sounds bilaterally, clear to auscultation and percussion. No rales, rhonchi or wheezes noted. No increased work of breathing, no retractions or nasal flaring. Abdomen/GI: Soft, non-tender, with normal bowel sounds. No distension or tympany. No guarding or rebound. No evidence of tenderness throughout. Skin: Warm, dry with normal turgor. Normal color with no rashes, no lesions, and no evidence of cellulitis. MS/ Extremity: Pulses equal, no cyanosis. Neurovascular intact. Full, normal range of motion. Neuro: Awake and alert, GCS 15, oriented to person, place, time, and situation. Cranial nerves II-XII grossly intact. Motor strength 5/5 in all extremities. Sensory grossly intact. Cerebellar exam normal. Normal gait. Vital Signs: 12:35 BP 142 / 85; Pulse 99; Resp 16 S; Temp 97.3; Pulse Ox 97% on R/A; Weight 142.88 kg; iw Height 5 ft. 9 in. (175.26 cm); 12:35 Pain 7/10; iw 12:35 Body Mass Index 46.52 (142.88 kg, 175.26 cm) iw [place] Coma Score: 13:20 Eye Response: spontaneous(4). Verbal Response: oriented(5). Motor Response: obeys kb commands(6). Total: 15. MDM: 12:43 Patient medically screened. kb 13:19 Data reviewed: vital signs, nurses notes. Data interpreted: Pulse oximetry: on room air kb is 97 %. Interpretation: normal. Counseling: I had a detailed discussion with the patient and/or guardian regarding: the historical points, exam findings, and any diagnostic results supporting the discharge/admit diagnosis, the need for outpatient follow up, a neurologist, to return to the emergency department if symptoms worsen or persist or if there are any questions or concerns that arise at home. Administered Medications: 13:32 Drug: TORadol 30 mg Route: IM; Site: left deltoid; em 13:40 Follow up: Response: Medication administered at discharge. em Disposition: 18:30 Co-signature as Attending Physician, León Adkins MD Signature for administrative ps1 purposes. Did not see or evaluate patient. . Disposition: 05/27/19 13:21 Discharged to Home. Impression: Migraine. - Condition is Stable. - Discharge Instructions: Migraine Headache, [id number]. - Work release form, Medication Reconciliation Form, Thank You Letter, Antibiotic Education, Prescription Opioid Use form. - Follow up: Emergency Department; When: As needed; Reason: Worsening of condition. Follow up: Private Physician; When: 2 - 3 days; Reason: Recheck today's complaints, Continuance of care, Re-evaluation by your physician. Signatures: Maggy Maher, [place]-Vinny Almeida RN RN em Mary Appiah RN RN iw León Adkins MD MD ps1 Corrections: (The following items were deleted from the chart) 13:40 13:21 05/27/2019 13:21 Discharged to Home. Impression: Migraine. Condition is Stable. em Forms are Medication Reconciliation Form, Thank You Letter, Antibiotic Education, Prescription Opioid Use. Follow up: Emergency Department; When: As needed; Reason: Worsening of condition. Follow up: Private Physician; When: 2 - 3 days; Reason: Recheck today's complaints, Continuance of care, Re-evaluation by your physician. kb 13:41 13:40 05/27/2019 13:21 Discharged to Home. Impression: Migraine. Condition is Stable. em Discharge Instructions: Migraine Headache, [id number]. Forms are Medication Reconciliation Form, Thank You Letter, Antibiotic Education, Prescription Opioid Use, Work release form. Follow up: Emergency Department; When: As needed; Reason: Worsening of condition. Follow up: Private Physician; When: 2 - 3 days; Reason: Recheck today's complaints, Continuance of care, Re-evaluation by your physician. em
--- NOTE | 2019-05-27 13:22 | ER ---
Nurse's Notes [facility] Name: Tod Mcgovern II Age: 33 yrs Sex: Male : 1985 Arrival Date: 05/27/2019 Time: 12:18 Bed 16 Private MD: Diagnosis: Migraine Presentation: 05/26 12:35 Chief complaint: Patient states: migraine , nausea vomited X 1 , woke him up in middle iw of night, couldn't go to work, +hx migraines, not currently on meds. Coronavirus screen: The patient has NOT traveled to a country currently being monitored by the [facility] within the last 14 days. Proceed with normal triage procedures. The patient has NOT had contact with any known and/or suspected case of coronavirus. Proceed with normal triage procedures. Ebola Screen: Patient negative for fever greater than or equal to 101.5 degrees Fahrenheit, and additional compatible Ebola Virus Disease symptoms Patient denies exposure to infectious person. Patient denies travel to an Ebola-affected area in the 21 days before illness onset. No symptoms or risks identified at this time. Initial Sepsis Screen: Does the patient meet any 2 criteria? No. Patient's initial sepsis screen is negative. Does the patient have a suspected source of infection? No. Patient's initial sepsis screen is negative. Risk Assessment: Do you want to hurt yourself or someone else? Patient reports no desire to harm self or others. 12:35 Method Of Arrival: Ambulatory iw 12:35 Acuity: ESTEVAN 3 iw Historical: - Allergies: 12:39 aloe vera; iw - Home Meds: 12:39 None [Active]; iw - PMHx: 12:39 Migraines; iw - PSHx: 12:39 None; iw - Immunization history:: Adult Immunizations not up to date. - Social history:: Smoking status: Patient reports the use of cigarette tobacco products, smokes one pack cigarettes per day. Screenin:26 Abuse screen: Denies threats or abuse. Nutritional screening: No deficits noted. em Tuberculosis screening: No symptoms or risk factors identified. Fall Risk None identified. Assessment: 13:22 General: Appears in no apparent distress. uncomfortable, Behavior is calm, cooperative, em Denies fever. Pain: Complains of pain in forehead Pain currently is 7 out of 10 on a pain scale. Neuro: Level of Consciousness is awake, alert, obeys commands, Oriented to person, place, time, situation, Appropriate for age Reports headache frontal area. Cardiovascular: Capillary refill < 3 seconds Patient's skin is warm and dry. Respiratory: Airway is patent Respiratory effort is even, unlabored, Respiratory pattern is regular, symmetrical. GI: Abdomen is round non-distended, Reports nausea, vomiting. Derm: Skin is intact, is healthy with good turgor, Skin is pink, warm \T\ dry. Musculoskeletal: Capillary refill < 3 seconds, Range of motion: intact in all extremities. Vital Signs: 12:35 BP 142 / 85; Pulse 99; Resp 16 S; Temp 97.3; Pulse Ox 97% on R/A; Weight 142.88 kg; iw Height 5 ft. 9 in. (175.26 cm); 12:35 Pain 7/10; iw 12:35 Body Mass Index 46.52 (142.88 kg, 175.26 cm) iw [place] Coma Score: 13:20 Eye Response: spontaneous(4). Verbal Response: oriented(5). Motor Response: obeys kb commands(6). Total: 15. ED Course: 12:18 Patient arrived in ED. mr 12:39 Triage completed. iw 12:39 Arm band placed on. iw 12:41 Vinny aPrekh, RN is Primary Nurse. em 12:43 Maggy Maher FNP-C is PHCP. kb 12:43 León Adkins MD is Attending Physician. kb 13:26 Patient has correct armband on for positive identification. Bed in low position. Call em light in reach. Adult w/ patient. 13:26 No provider procedures requiring assistance completed. Patient did not have IV access em during this emergency room visit. Administered Medications: 13:32 Drug: TORadol 30 mg Route: IM; Site: left deltoid; em 13:40 Follow up: Response: Medication administered at discharge. em Outcome: 13:21 Discharge ordered by . kb 13:39 Discharged to home ambulatory. em 13:39 Condition: good 13:39 Discharge instructions given to patient, Instructed on discharge instructions, follow up and referral plans. Demonstrated understanding of instructions, follow-up care. 13:41 Patient left the ED. em Signatures: Maggy Maher FNP-C FNP-Ckb Rivera, Mary mr Vinny Parekh, RN RN Mary James, RN RN iw
[2019-05-27] MEDS ORDERED: KETOROLAC 30 MG/ML INJ ONE (13:36)
[2019-05-27 13:46] VITALS: BP 142/85; TEMP 97.3; O2SAT 97
== END 2019-05-27 13:41 | disposition home or self-care (01) ==
LOC: ER 12:14
DX: G43.909 Migraine, unspecified, not intractable, without status migrainosus (principal); F17.210 Nicotine dependence, cigarettes, uncomplicated
CPT/HCPCS: 96372; 99283

== ENCOUNTER 2019-07-03 14:57 | Emergency (ER) | payer SELFPAY ==
--- NOTE | 2019-07-03 15:32 | EDPHYS ---
Physician Documentation [facility] Name: Tod Mcgovern II Age: 33 yrs Sex: Male : 1985 Arrival Date: 07/03/2019 Time: 15:00 Bed 15 Private MD: ED Physician Cesar Hoyos HPI: 07/02 15:18 This 33 yrs old Male presents to ER via Ambulatory with complaints of Ear cp Pain. 15:18 The patient presents with pain, that is acute. The complaints affect the right ear and cp left ear. Onset: The symptoms/episode began/occurred 2 week(s) ago. Associated signs and symptoms: Pertinent negatives: cough, fever, sore throat, vertigo. Severity of symptoms: in the emergency department the symptoms are unchanged despite home interventions. Historical: - Allergies: 15:09 aloe vera; ll1 - PMHx: 15:09 Migraines; ll1 - PSHx: 15:09 None; ll1 - Immunization history:: Adult Immunizations up to date. - Social history:: Smoking status: Patient reports the use of cigarette tobacco products, smokes one-half pack cigarettes per day, smokes one pack cigarettes per day. Patient uses alcohol, only on a social basis. Patient/guardian denies using street drugs. ROS: 15:24 Eyes: Negative for injury, pain, redness, and discharge. cp 15:24 Constitutional: Negative for body aches, chills, fever, poor PO intake. 15:24 ENT: Positive for ear pain, Negative for drainage from ear(s), sore throat, difficulty swallowing, difficulty handling secretions. 15:24 Respiratory: Negative for cough, shortness of breath, wheezing. 15:24 Abdomen/GI: Negative for abdominal pain, nausea, vomiting, and diarrhea. 15:24 Skin: Negative for rash. 15:24 All other systems are negative. Exam: 15:27 Head/Face: Normocephalic, atraumatic. cp 15:27 Constitutional: The patient appears in no acute distress, alert, awake, non-toxic, well developed, well nourished. 15:27 Eyes: Periorbital structures: appear normal, Conjunctiva: normal, no exudate, no injection, Lids and lashes: appear normal, bilaterally. 15:27 ENT: External ear(s): are unremarkable, Ear canal(s): erythema, that is moderate, of the right canal, swelling, that is moderate, of the right canal, TM's: bulging, bilaterally, erythema, that is mild, bilaterally, Nose: is normal, Mouth: Lips: moist, Oral mucosa: pink and intact, moist, Posterior pharynx: is normal, airway is patent. 15:27 Neck: Lymph nodes: no appreciated lymphadenopathy. 15:27 Chest/axilla: Inspection: normal. cp 15:27 Cardiovascular: Rate: tachycardic. cp 15:27 Respiratory: the patient does not display signs of respiratory distress, Respirations: normal, no use of accessory muscles, labored breathing, is not present. 15:27 Skin: no rash present. Vital Signs: 15:07 BP 150 / 99; Pulse 113; Resp 18; Temp 98.9; Pulse Ox 100% ; Pain 7/10; ll1 MDM: 15:08 Patient medically screened. lobito 15:25 Differential diagnosis: otitis media, otitis externa, ruptured TM, foreign body, cp cerumen impaction. 15:30 Data reviewed: vital signs, nurses notes, and as a result, I will discharge patient. cp 15:30 Counseling: I had a detailed discussion with the patient and/or guardian regarding: the cp historical points, exam findings, and any diagnostic results supporting the discharge/admit diagnosis, the need for outpatient follow up, an ENT specialist, to return to the emergency department if symptoms worsen or persist or if there are any questions or concerns that arise at home. Administered Medications: 15:39 Drug: TORadol 30 mg Route: IM; Site: right deltoid; vc 15:40 Follow up: Response: No adverse reaction vc Disposition: 07/03/19 15:30 Discharged to Home. Impression: Otitis media, unspecified, bilateral, Otitis externa in other diseases classified elsewhere, right ear. - Condition is Stable. - Discharge Instructions: Otitis Media, Adult, Otitis Externa. - Prescriptions for Augmentin 875- 125 mg Oral Tablet - take 1 tablet by ORAL route every 12 hours for 10 days; 20 tablet. Ciprodex 0.3- 0.1 % Otic Drops, Suspension - instill 4 drops by OTIC route every 12 hours for 7 days , for ears ONLY. Instill drops in right ear canal as directed; 1 Container. Ibuprofen 800 mg Oral Tablet - take 1 tablet by ORAL route every 8 hours As needed take with food; 30 tablet. - Medication Reconciliation Form, Thank You Letter, Antibiotic Education, Prescription Opioid Use form. - Follow up: Yamila Cuenca MD; When: 2 - 3 days; Reason: Worsening of condition. - Problem is new. - Symptoms have improved. Addendum: 07/05/2019 09:57 Co-signature as Attending Physician, Csear Hoyos MD I agree with the assessment and c andrade plan of care. Signatures: Cesar Hoyos MD MD cha Page, Corey, PA PA cp Valeria Lobo, RN RN Toño Dias RN RN ll1 Corrections: (The following items were deleted from the chart) 07/02 15:41 15:30 07/03/2019 15:30 Discharged to Home. Impression: Otitis media, unspecified, vc bilateral; Otitis externa in other diseases classified elsewhere, right ear. Condition is Stable. Forms are Medication Reconciliation Form, Thank You Letter, Antibiotic Education, Prescription Opioid Use. Follow up: Yamila Cuenca; When: 2 - 3 days; Reason: Worsening of condition. Problem is new. Symptoms have improved. cp
--- NOTE | 2019-07-03 15:32 | ER ---
Nurse's Notes [facility] Name: Tod Mcgovern II Age: 33 yrs Sex: Male : 1985 Arrival Date: 07/03/2019 Time: 15:00 Bed 15 Private MD: Diagnosis: Otitis media, unspecified, bilateral;Otitis externa in other diseases classified elsewhere, right ear Presentation: 07/02 15:07 Chief complaint: Patient states: Bilateral ear pain for 2-3 weeks, worse on right side ll1 now. No fever. Coronavirus screen: Proceed with normal triage. Patient denies a cough. Patient denies shortness of breath or difficulty breathing. Patient denies measured and/or subjective temperature greater than 100.4F prior to today's visit. Patient denies travel on a cruise ship or to a country the [facility] currently lists as an affected area. Patient denies contact with known and/or suspected case of COVID-19. Ebola Screen: Patient denies travel to an Ebola-affected area in the 21 days before illness onset. Initial Sepsis Screen: Does the patient meet any 2 criteria? HR > 90 bpm. No. Patient's initial sepsis screen is negative. Does the patient have a suspected source of infection? No. Patient's initial sepsis screen is negative. Risk Assessment: Do you want to hurt yourself or someone else? Patient reports no desire to harm self or others. Onset of symptoms was June 13, 2019. 15:07 Method Of Arrival: Ambulatory ll1 15:07 Acuity: ESTEVAN 4 ll1 Triage Assessment: 15:15 General: Appears in no apparent distress. uncomfortable, Behavior is calm, cooperative, vc appropriate for age. Pain: Complains of pain in left ear and right ear. EENT: Reports pain in right ear and left ear. Historical: - Allergies: 15:09 aloe vera; ll1 - PMHx: 15:09 Migraines; ll1 - PSHx: 15:09 None; ll1 - Immunization history:: Adult Immunizations up to date. - Social history:: Smoking status: Patient reports the use of cigarette tobacco products, smokes one-half pack cigarettes per day, smokes one pack cigarettes per day. Patient uses alcohol, only on a social basis. Patient/guardian denies using street drugs. Screenin:15 Abuse screen: Denies threats or abuse. Nutritional screening: No deficits noted. vc Tuberculosis screening: No symptoms or risk factors identified. Fall Risk None identified. Assessment: 15:15 General: Appears in no apparent distress. uncomfortable, Behavior is calm, cooperative, vc appropriate for age. General: Behavior is cooperative, appropriate for age, anxious. Pain: Complains of pain in left ear and right ear. Neuro: Level of Consciousness is awake, alert, obeys commands, Oriented to person, place, time, situation, Appropriate for age. Cardiovascular: Capillary refill < 3 seconds Patient's skin is warm and dry. Respiratory: Airway is patent Respiratory effort is even, unlabored, Respiratory pattern is regular, symmetrical. GI: No signs and/or symptoms were reported involving the gastrointestinal system. : No signs and/or symptoms were reported regarding the genitourinary system. EENT: Reports pain in right ear and left ear. Derm: Skin temperature is warm. Musculoskeletal: Circulation, motion, and sensation intact. Range of motion: intact in all extremities. Vital Signs: 15:07 BP 150 / 99; Pulse 113; Resp 18; Temp 98.9; Pulse Ox 100% ; Pain 7/10; ll1 ED Course: 15:00 Patient arrived in ED. mr 15:07 Cesar Gonzalez PA is PHCP. cp 15:07 Cesar Hoyos MD is Attending Physician. cp 15:08 Triage completed. ll1 15:09 Arm band placed on Patient placed in an exam room, on a stretcher. ll1 15:15 Patient has correct armband on for positive identification. Bed in low position. Call vc light in reach. 15:21 Valeria Lobo RN is Primary Nurse. vc 15:30 Yamila Cuenca MD is Referral Physician. cp 15:40 No provider procedures requiring assistance completed. Patient did not have IV access vc during this emergency room visit. Administered Medications: 15:39 Drug: TORadol 30 mg Route: IM; Site: right deltoid; vc 15:40 Follow up: Response: No adverse reaction vc Outcome: 15:30 Discharge ordered by . cp 15:40 Discharged to home ambulatory. vc 15:40 Condition: good 15:40 Discharge instructions given to patient, Instructed on discharge instructions, follow up and referral plans. medication usage, Demonstrated understanding of instructions, follow-up care, medications, Prescriptions given X 3. 15:41 Patient left the ED. vc Signatures: Marija Carrero mr Cesar Gonzalez PA PA cp Calcote, Vanessa RN RN Toño Dias RN RN ll1
[2019-07-03] MEDS ORDERED: KETOROLAC 30 MG/ML INJ ONE (15:39)
[2019-07-03 15:46] VITALS: BP 150/99; TEMP 98.9; O2SAT 100
== END 2019-07-03 15:41 | disposition home or self-care (01) ==
LOC: ER 14:57
DX: H66.93 Otitis media, unspecified, bilateral (principal); H60.91 Unspecified otitis externa, right ear; F17.210 Nicotine dependence, cigarettes, uncomplicated; Z91.048 Other nonmedicinal substance allergy status
CPT/HCPCS: 96372; 99283

== ENCOUNTER 2021-05-16 22:38 | Emergency (ER) | payer SELFPAY ==
--- NOTE | 2021-05-16 23:21 | EDPHYS ---
Physician Documentation [facility] Name: Tod Mcgovern II Age: 35 yrs Sex: Male : 1985 Arrival Date: 05/16/2021 Time: 22:40 Bed 14 Private MD: ED Physician Kwaku Gonzalez HPI: 05/16 23:12 This 35 yrs old Male presents to ER via Ambulatory with complaints of Rectal Bleeding. mh7 23:12 The patient presents to the emergency department with bleeding from the rectum/anus, mh7 that is mild. 23:12 Onset: The symptoms/episode began/occurred today, 1 hour(s) ago. Context: the patient mh7 Occurred during bowel movement. Modifying factors: The symptoms are alleviated by nothing, The symptoms are aggravated by bowel movement. Associate signs and symptoms: Pertinent positives: constipation, Pertinent negatives: abdominal pain, diarrhea, dysuria, fever, vomiting. States that he has been constipated for the last 2 to 3 days and straining with bowel movements. Denies any abdominal pain, fever, nausea, vomiting, diarrhea, dysuria, or other complaints.. Historical: - Allergies: 22:52 aloe vera; smitha - PMHx: 22:52 Migraines; Depressive disorder; smitha - Immunization history:: Client reports receiving the 2nd dose of the Covid vaccine, Moderna. - Social history:: Smoking status: Patient reports the use of cigarette tobacco products, smokes one pack cigarettes per day. ROS: 23:12 Constitutional: Negative for fever, chills, and weight loss, Eyes: Negative for injury, mh7 pain, redness, and discharge, ENT: Negative for injury, pain, and discharge, Neck: Negative for injury, pain, and swelling, Cardiovascular: Negative for chest pain, palpitations, and edema, Respiratory: Negative for shortness of breath, cough, wheezing, and pleuritic chest pain, Back: Negative for injury and pain, : Negative for injury, bleeding, discharge, and swelling, MS/Extremity: Negative for injury and deformity, Skin: Negative for injury, rash, and discoloration, Neuro: Negative for headache, weakness, numbness, tingling, and seizure, Psych: Negative for depression, anxiety, suicide ideation, homicidal ideation, and hallucinations, Allergy/Immunology: Negative for hives, rash, and allergies, Endocrine: Negative for neck swelling, polydipsia, polyuria, polyphagia, and marked weight changes, Hematologic/Lymphatic: Negative for swollen nodes, abnormal bleeding, and unusual bruising. Exam: 23:12 Constitutional: This is a well developed, well nourished patient who is awake, alert, mh7 and in no acute distress. Head/Face: Normocephalic, atraumatic. Eyes: Pupils equal round and reactive to light, extra-ocular motions intact. Lids and lashes normal. Conjunctiva and sclera are non-icteric and not injected. Cornea within normal limits. Periorbital areas with no swelling, redness, or edema. Neck: Trachea midline, no thyromegaly or masses palpated, and no cervical lymphadenopathy. Supple, full range of motion without nuchal rigidity, or vertebral point tenderness. No Meningismus. Chest/axilla: Normal chest wall appearance and motion. Nontender with no deformity. No lesions are appreciated. Cardiovascular: Regular rate and rhythm with a normal S1 and S2. No gallops, murmurs, or rubs. Normal PMI, no JVD. No pulse deficits. Respiratory: Lungs have equal breath sounds bilaterally, clear to auscultation and percussion. No rales, rhonchi or wheezes noted. No increased work of breathing, no retractions or nasal flaring. Back: No spinal tenderness. No costovertebral tenderness. Full range of motion. Skin: Warm, dry with normal turgor. Normal color with no rashes, no lesions, and no evidence of cellulitis. MS/ Extremity: Pulses equal, no cyanosis. Neurovascular intact. Full, normal range of motion. Neuro: Awake and alert, GCS 15, oriented to person, place, time, and situation. Cranial nerves II-XII grossly intact. Motor strength 5/5 in all extremities. Sensory grossly intact. Cerebellar exam normal. Normal gait. Psych: Awake, alert, with orientation to person, place and time. Behavior, mood, and affect are within normal limits. 23:12 Abdomen/GI: Inspection: obese Bowel sounds: normal, in all quadrants, Palpation: abdomen is soft and non-tender, in all quadrants, Rectal exam: rectal tone normal, Stool: brown, guaiac negative, hemorrhoid(s), external, with inflammation, without bleeding, without thrombosis, without pain, At 6 o'clock position, mass, is not appreciated, swelling, is not appreciated, tenderness, is not appreciated, fecal impaction, is not appreciated, the exam is chaperoned by the nurse, Indicators: McBurney's point is not tender, Anaya's sign is negative, Rovsing's sign is negative, Obturator sign is negative, Psoas sign is negative, Liver: no appreciated palpable abnormalities, Hernia: not appreciated. Vital Signs: 22:48 BP 174 / 96; Pulse 85; Resp 18; Temp 98.5; Pulse Ox 97% on R/A; Weight 140.61 kg; smitha Height 5 ft. 9 in. (175.26 cm); Pain 3/10; 22:53 BP 174 / 96; Pulse 85; Resp 18; Temp 98.5; Pulse Ox 97% ; Pain 3/10; smitha 22:48 Body Mass Index 45.78 (140.61 kg, 175.26 cm) smitha MDM: 23:18 Differential diagnosis: hemorrhoids, fissure, abscess, pilonidal cyst, condyloma. Data mh7 reviewed: vital signs, nurses notes. Data reviewed: old medical records. Data interpreted: Pulse oximetry: on room air is 97 %. Interpretation: normal. Counseling: I had a detailed discussion with the patient and/or guardian regarding: the historical points, exam findings, and any diagnostic results supporting the discharge/admit diagnosis, the need for outpatient follow up, a colorectal specialist, a general surgeon, to return to the emergency department if symptoms worsen or persist or if there are any questions or concerns that arise at home. Response to treatment: the patient's symptoms have resolved after treatment, the patient's blood pressure is in an acceptable range, mental status has returned to baseline, the patient no longer shows bradycardia, the patient is not short of breath, the patient is not tachycardic, the patient's pain is gone, the patient's temperature has normalized. 23:20 Patient medically screened. [facility] Administered Medications: No medications were administered Disposition Summary: 05/16/21 23:20 Discharge Ordered Location: Home [facility] Problem: new [facility] Symptoms: have improved mh Condition: Stable [facility] Diagnosis - Unspecified hemorrhoids [facility] Followup: [facility] - With: Private Physician - When: 1 - 2 days - Reason: Worsening of condition, Recheck today's complaints, Continuance of care, Re-evaluation by your physician Followup: [facility] - With: Black Abdalla MD - When: 1 - 2 days - Reason: Worsening of condition, Recheck today's complaints Discharge Instructions: - Discharge Summary Sheet [facility] - High-Fiber Diet [facility] - Hemorrhoids, [id number] [facility] Forms: - Medication Reconciliation Form [facility] - Thank You Letter [facility] - Antibiotic Education [facility] - Prescription Opioid Use [facility] Prescriptions: - lidocaine HCl-hydrocortison ac 3-0.5 % Rectal cream - insert 1 applicatorful by RECTAL route 2 times per day for 5 days; 10 mh7 applicatorful; Refills: 0, Product Selection Permitted - Colace 100 mg Oral Tablet - take 1 tablet by ORAL route every 12 hours; 14 tablet; Refills: 0, Product [facility] Selection Permitted Signatures: Kwaku Gonzalez MD MD [facility] Kassy Prabhakar RN RN smitha
--- NOTE | 2021-05-16 23:21 | ER ---
Nurse's Notes [facility] Name: Tod Mcgovern II Age: 35 yrs Sex: Male : 1985 Arrival Date: 05/16/2021 Time: 22:40 Bed 14 Private MD: Diagnosis: Unspecified hemorrhoids Presentation: 05/16 22:48 Chief complaint: Patient states: "rectal bleeding". Coronavirus screen: Vaccine status: smitha Patient reports receiving the 2nd dose of the covid vaccine. Moderna Client denies travel out of the [place] in the last 14 days. At this time, the client does not indicate any symptoms associated with coronavirus-19. Ebola Screen: Patient negative for fever greater than or equal to 101.5 degrees Fahrenheit, and additional compatible Ebola Virus Disease symptoms Patient denies exposure to infectious person. Patient denies travel to an Ebola-affected area in the 21 days before illness onset. Initial Sepsis Screen: Does the patient meet any 2 criteria? No. Patient's initial sepsis screen is negative. Does the patient have a suspected source of infection? No. Patient's initial sepsis screen is negative. Risk Assessment: Do you want to hurt yourself or someone else? Patient reports no desire to harm self or others. Onset of symptoms was May 16, 2021 at 22:30. 22:48 Method Of Arrival: Ambulatory smitha 22:48 Acuity: ESTEVAN 3 smitha Historical: - Allergies: 22:52 aloe vera; smitha - PMHx: 22:52 Migraines; Depressive disorder; smitha - Immunization history:: Client reports receiving the 2nd dose of the Covid vaccine, Moderna. - Social history:: Smoking status: Patient reports the use of cigarette tobacco products, smokes one pack cigarettes per day. Screenin:06 Abuse screen: Denies threats or abuse. Nutritional screening: No deficits noted. al4 23:35 Tuberculosis screening: No symptoms or risk factors identified. Fall Risk None al4 identified. Assessment: 23:04 General: Appears in no apparent distress. uncomfortable, Behavior is calm, cooperative, al4 anxious. Pain: Complains of pain in buttocks. Neuro: Level of Consciousness is awake, alert, obeys commands, Oriented to person, place, time, situation. Cardiovascular: Capillary refill < 3 seconds Patient's skin is warm and dry. Respiratory: Airway is patent Respiratory effort is unlabored, Respiratory pattern is regular. GI: Reports constipation, rectal bleeding, hemorrhoids, nausea. : No signs and/or symptoms were reported regarding the genitourinary system. Musculoskeletal: Range of motion: intact in all extremities. Vital Signs: 22:48 BP 174 / 96; Pulse 85; Resp 18; Temp 98.5; Pulse Ox 97% on R/A; Weight 140.61 kg; smitha Height 5 ft. 9 in. (175.26 cm); Pain 3/10; 22:53 BP 174 / 96; Pulse 85; Resp 18; Temp 98.5; Pulse Ox 97% ; Pain 3/10; smitha 22:48 Body Mass Index 45.78 (140.61 kg, 175.26 cm) smitha ED Course: 22:40 Patient arrived in ED. jj6 22:42 Kartik Deluna is Primary Nurse. al4 22:45 Kwaku Gonzalez MD is Attending Physician. 7 22:52 Triage completed. smitha 22:54 Arm band placed on. smitha 23:20 Black Abdalla MD is Referral Physician. mh7 23:35 Placed in gown. Call light in reach. Side rails up X 1. al4 23:35 Served as a instructor extension work during rectal exam. Patient did not have IV access during this al4 emergency room visit. Administered Medications: No medications were administered Outcome: 23:20 Discharge ordered by . 7 23:35 Discharged to home ambulatory. al4 23:35 Condition: stable 23:35 Discharge instructions given to patient, by Kassy Barclay RN 23:36 Patient left the ED. al4 Signatures: Kwaku Gonzalez MD MD [facility] Yudith Mary j Kartik Deluna al4 Kassy Prabhakar RN RN smitha Corrections: (The following items were deleted from the chart) 23:10 23:04 GI: Reports rectal bleeding, hemorrhoids, nausea, al4 al4
[2021-05-16 23:41] VITALS: BP 174/96; TEMP 98.5; O2SAT 97
== END 2021-05-16 23:36 | disposition home or self-care (01) ==
LOC: ER 22:38
DX: K64.9 Unspecified hemorrhoids (principal); F17.210 Nicotine dependence, cigarettes, uncomplicated
CPT/HCPCS: 99283

== ENCOUNTER 2021-06-06 13:58 | Emergency (ER) | payer SELFPAY ==
[2021-06-06] MEDS ORDERED: ONDANSETRON 4 MG/2 ML VIAL ONE (14:22)
[2021-06-06] MEDS ORDERED: NA CHLORIDE 0.9% 1,000 ML ONE (14:22)
[2021-06-06 14:35] LABS: Absolute Lymphocytes (CBC) 2.2 K/uL (0.7-4.9); Hematocrit 48.4 % (39.6-49.0); Lymphocytes % 25.3 % (15.3-44.8); MPV 8.1 fL (7.6-11.3); RBC Red Blood Cell Count 5.67 M/uL (4.33-5.43)
[2021-06-06 14:46] LABS: Albumin 4.2 g/dL (3.4-5.0); Bilirubin Total 0.7 mg/dL (0.2-1.0); Potassium 4.1 mmol/L (3.5-5.1); Protein, Total 7.9 g/dL (6.4-8.2)
[2021-06-06 15:54] LABS: SARS-COV-2 RT PCR NEGATIVE (NEGATIVE)
--- NOTE | 2021-06-06 16:07 | EDPHYS ---
Physician Documentation [facility] Name: Tod Mcgovern II Age: 35 yrs Sex: Male : 1985 Arrival Date: 06/06/2021 Time: 14:02 Bed 12 Private MD: ED Physician Shubham Vázquez HPI: 06/06 14:48 This 35 yrs old Male presents to ER via Ambulatory with complaints of Abdominal Pain, kb Diarrhea. 14:48 n/v/d since 1100 yesterday, now has soreness to abd. . kb 14:48 The patient presents to the emergency department with nausea, vomiting, diarrhea. kb Onset: The symptoms/episode began/occurred yesterday. Possible causes: unknown. The symptoms are aggravated by nothing. The symptoms are alleviated by nothing. Associated signs and symptoms: Pertinent positives: diarrhea, nausea, vomiting, Pertinent negatives: abdominal pain, fever. Severity of symptoms: At their worst the symptoms were moderate in the emergency department the symptoms are unchanged. The patient has not experienced similar symptoms in the past. The patient has not recently seen a physician. Historical: - Allergies: 14:09 aloe vera; ll1 - PMHx: 14:09 depressive disorder; Migraines; Diabetes mellitus; Hypercholesterolemia; ll1 - PSHx: 14:09 None; ll1 - Immunization history:: Client reports receiving the 2nd dose of the Covid vaccine. - Social history:: Smoking status: Patient reports the use of cigarette tobacco products, smokes one pack cigarettes per day. ROS: 14:48 Constitutional: Negative for fever, chills, and weight loss. kb 14:48 Abdomen/GI: Positive for abdominal pain, nausea, vomiting, and diarrhea. 14:48 All other systems are negative. Exam: 14:48 Constitutional: This is a well developed, well nourished patient who is awake, alert, kb and in no acute distress. Head/Face: Normocephalic, atraumatic. ENT: Moist Mucous membranes Cardiovascular: Regular rate and rhythm with a normal S1 and S2. No gallops, murmurs, or rubs. No pulse deficits. Respiratory: Respirations even and unlabored. No increased work of breathing. Talking in full sentences Abdomen/GI: Soft, non-tender. No distention Skin: Warm, dry with normal turgor. Normal color. MS/ Extremity: Pulses equal, no cyanosis. Neurovascular intact. Full, normal range of motion. Neuro: Awake and alert, GCS 15, oriented to person, place, time, and situation. Moves all extremities. Normal gait. Psych: Awake, alert, with orientation to person, place and time. Behavior, mood, and affect are within normal limits. Vital Signs: 14:10 BP 143 / 87; Pulse 85; Resp 17; Temp 97.7; Pulse Ox 98% ; Weight 136.08 kg; Height 5 ll1 ft. 9 in. (175.26 cm); Pain 3/10; 15:06 BP 133 / 80; Pulse 93; Resp 17; Pulse Ox 97% on R/A; ab2 16:16 BP 127 / 79; Pulse 86; Resp 17; Pulse Ox 98% on R/A; ab2 14:10 Body Mass Index 44.30 (136.08 kg, 175.26 cm) ll1 MDM: 14:07 Patient medically screened. kb 14:49 Data reviewed: vital signs, nurses notes. Data interpreted: Pulse oximetry: on room air kb is 98 %. Interpretation: normal. 15:59 Counseling: I had a detailed discussion with the patient and/or guardian regarding: the kb historical points, exam findings, and any diagnostic results supporting the discharge/admit diagnosis, lab results, the need for outpatient follow up, a family practitioner, to return to the emergency department if symptoms worsen or persist or if there are any questions or concerns that arise at home. 06/06 14:08 Order name: CBC with Diff; Complete Time: 14:47 kb 06/06 14:08 Order name: CMP; Complete Time: 14:47 kb 06/06 14:08 Order name: Lipase; Complete Time: 14:47 kb 06/06 14:08 Order name: COVID-19/FLU A+B (Document "Date of Onset" if Symptomatic); Complete Time: kb 15:59 06/06 14:08 Order name: IV Saline Lock; Complete Time: 14:21 kb 06/06 14:08 Order name: Labs collected and sent; Complete Time: 14:21 kb Administered Medications: 14:22 Drug: NS 0.9% 1000 ml Route: IV; Rate: 1 bolus; Site: left antecubital; ab2 16:11 Follow up: Response: No adverse reaction; IV Status: Completed infusion ab2 14:22 Drug: Zofran (Ondansetron) 4 mg Route: IVP; Site: left antecubital; ab2 16:11 Follow up: Response: No adverse reaction ab2 Disposition: 06/07 13:45 Co-signature as Attending Physician, Shubham Vázquez DO I was immediately available on-site ms3 in the Emergency Department for consultation in the care of the patient.. Disposition Summary: 06/06/21 16:06 Discharge Ordered Location: Home kb Condition: Stable kb Diagnosis - Noninfective gastroenteritis and colitis, unspecified kb Followup: kb - With: Emergency Department - When: As needed - Reason: Worsening of condition Followup: kb - With: Private Physician - When: 2 - 3 days - Reason: Recheck today's complaints, Continuance of care, Re-evaluation by your physician Discharge Instructions: - Discharge Summary Sheet kb - Viral Gastroenteritis, Adult kb Forms: - Medication Reconciliation Form kb - Thank You Letter kb - Work release form kb - Antibiotic Education kb - Prescription Opioid Use kb Prescriptions: - Zofran 4 mg Oral Tablet - take 1 tablet by ORAL route every 6 hours As needed; 20 tablet; Refills: 0, kb Product Selection Permitted Signatures: Dispatcher [employer] Maggy Harley, SCIENTIFIC LABORATORY SUPERVISOR-C [employer], RN RN ll1 Shubham Vázquez DO DO ms3 Kartik Alfaro ab2
--- NOTE | 2021-06-06 16:07 | ER ---
Nurse's Notes [facility] Name: Tod Mcgovern II Age: 35 yrs Sex: Male : 1985 Arrival Date: 06/06/2021 Time: 14:02 Bed 12 Private MD: Diagnosis: Noninfective gastroenteritis and colitis, unspecified Presentation: 06/06 14:10 Chief complaint: Patient states: N/V/D since 11 am yesterday. No known fever. ll1 Coronavirus screen: Vaccine status: Patient reports receiving the 2nd dose of the covid vaccine. Client denies travel out of the [place] in the last 14 days. diarrhea, fatigue, nausea, vomiting. Client presents with at least one sign or symptom that may indicate coronavirus-19. Standard/surgical mask placed on the client. Ebola Screen: Patient denies travel to an Ebola-affected area in the 21 days before illness onset. Initial Sepsis Screen: Does the patient meet any 2 criteria? No. Patient's initial sepsis screen is negative. Does the patient have a suspected source of infection? Yes: Acute abdominal pain. Risk Assessment: Do you want to hurt yourself or someone else? Patient reports no desire to harm self or others. Onset of symptoms was June 05, 2021. 14:10 Method Of Arrival: Ambulatory ll1 14:10 Acuity: ESTEVAN 3 ll1 Triage Assessment: 14:09 General: Appears ill, Behavior is calm, cooperative, appropriate for age. Pain: ll1 Complains of pain in abdomen Pain currently is 3 out of 10 on a pain scale. Quality of pain is described as aching, crampy. GI: Reports lower abdominal pain, upper abdominal pain, cramping, diarrhea, nausea, vomiting. Historical: - Allergies: 14:09 aloe vera; ll1 - PMHx: 14:09 depressive disorder; Migraines; Diabetes mellitus; Hypercholesterolemia; ll1 - PSHx: 14:09 None; ll1 - Immunization history:: Client reports receiving the 2nd dose of the Covid vaccine. - Social history:: Smoking status: Patient reports the use of cigarette tobacco products, smokes one pack cigarettes per day. Screenin:23 Abuse screen: Denies threats or abuse. Denies injuries from another. Nutritional ab2 screening: No deficits noted. Tuberculosis screening: No symptoms or risk factors identified. Fall Risk None identified. Assessment: 14:22 General: Appears in no apparent distress. comfortable, Behavior is calm, cooperative, ab2 appropriate for age. Pain: Complains of pain in abdomen Pain. Neuro: No deficits noted. Level of Consciousness is awake, alert, obeys commands, Oriented to person, place, time, situation, Appropriate for age [employer] Negative are equal bilaterally Moves all extremities. Gait is steady, Speech is normal. Cardiovascular: No deficits noted. Denies chest pain, shortness of breath, Heart tones S1 S2 present Patient's skin is warm and dry. Respiratory: No deficits noted. Airway is patent Respiratory effort is even, unlabored, Respiratory pattern is regular, symmetrical, Breath sounds are clear bilaterally. GI: Bowel sounds present X 4 quads. Abdomen is tender to palpation X 4 quads. Reports lower abdominal pain, upper abdominal pain, diarrhea, nausea, vomiting. : No deficits noted. No signs and/or symptoms were reported regarding the genitourinary system. EENT: No deficits noted. No signs and/or symptoms were reported regarding the EENT system. Derm: No deficits noted. No signs and/or symptoms reported regarding the dermatologic system. Skin is intact, Skin is pink, warm \\T\\ dry. Vital Signs: 14:10 BP 143 / 87; Pulse 85; Resp 17; Temp 97.7; Pulse Ox 98% ; Weight 136.08 kg; Height 5 ll1 ft. 9 in. (175.26 cm); Pain 3/10; 15:06 BP 133 / 80; Pulse 93; Resp 17; Pulse Ox 97% on R/A; ab2 16:16 BP 127 / 79; Pulse 86; Resp 17; Pulse Ox 98% on R/A; ab2 14:10 Body Mass Index 44.30 (136.08 kg, 175.26 cm) ll1 ED Course: 14:02 Patient arrived in ED. ds1 14:04 Maggy Maher FNP-C is [facility]. kb 14:04 Shubham Vázquez DO is Attending Physician. kb 14:09 Arm band placed on Patient placed in an exam room, on a stretcher. ll1 14:11 Triage completed. ll1 14:11 Kartik Alfaro is Primary Nurse. ab2 14:21 COVID-19/FLU A+B (Document "Date of Onset" if Symptomatic) Sent. ab2 14:21 CBC with Diff Sent. ab2 14:22 CMP Sent. ab2 14:22 Lipase Sent. ab2 14:23 Patient has correct armband on for positive identification. Bed in low position. Call ab2 light in reach. Side rails up X2. 14:23 No provider procedures requiring assistance completed. ab2 16:17 IV discontinued, intact, bleeding controlled, No redness/swelling at site. Pressure ab2 dressing applied. Administered Medications: 14:22 Drug: NS 0.9% 1000 ml Route: IV; Rate: 1 bolus; Site: left antecubital; ab2 16:11 Follow up: Response: No adverse reaction; IV Status: Completed infusion ab2 14:22 Drug: Zofran (Ondansetron) 4 mg Route: IVP; Site: left antecubital; ab2 16:11 Follow up: Response: No adverse reaction ab2 Outcome: 16:06 Discharge ordered by . vern 16:17 Discharged to home ambulatory. ab2 16:17 Condition: good 16:17 Discharge instructions given to patient, Instructed on discharge instructions, follow up and referral plans. medication usage, Demonstrated understanding of instructions, follow-up care, medications, Prescriptions given X 1. 16:17 Patient left the ED. ab2 Signatures: Maggy Maher, VALET CASHIER-C VALET CASHIER-Rima Amaro ds1 Toño Rodriguez, RN RN ll1 Kartik Alfaro ab2
[2021-06-06 16:23] VITALS: TEMP 97.7
[2021-06-06 16:25] VITALS: BP 127/79; O2SAT 98
== END 2021-06-06 16:17 | disposition home or self-care (01) ==
LOC: ER 13:58
DX: K52.9 Noninfective gastroenteritis and colitis, unspecified (principal); F17.210 Nicotine dependence, cigarettes, uncomplicated; Z20.822 Contact with and (suspected) exposure to COVID-19; Z91.048 Other nonmedicinal substance allergy status
CPT/HCPCS: 0240U; 36415; 80053; 83690; 85025; 96361; 96374; 99283; J2405; J7030

== ENCOUNTER 2021-06-25 07:09 | Emergency (ER) | payer SELFPAY ==
[2021-06-25] MEDS ORDERED: ONDANSETRON 4 MG/2 ML VIAL ONE (07:47)
[2021-06-25] MEDS ORDERED: FAMOTIDINE 20 MG/2 ML VIAL IV ONE (07:47)
[2021-06-25 07:57] LABS: Absolute Lymphocytes (CBC) 2.3 K/uL (0.7-4.9); Hematocrit 46.5 % (39.6-49.0); Lymphocytes % 26.3 % (15.3-44.8); MPV 8.1 fL (7.6-11.3); RBC Red Blood Cell Count 5.41 M/uL (4.33-5.43)
[2021-06-25 08:14] LABS: ALT/SGPT 44 U/L (12-78); AST/SGOT 13 U/L (15-37); Albumin 4.2 g/dL (3.4-5.0); Alkaline Phosphatase 45 U/L (45-117); BUN Blood Urea Nitrogen 14 mg/dL (7-18); Bicarbonate 26 mmol/L (21-32); Bilirubin Total 0.5 mg/dL (0.2-1.0); Glucose Level 118 mg/dL (74-106); Lipase 187 U/L (73-393); Potassium 4.3 mmol/L (3.5-5.1); Protein, Total 7.4 g/dL (6.4-8.2); Sodium Level 138 mmol/L (136-145)
--- NOTE | 2021-06-25 08:55 | ER ---
Nurse's Notes [facility] Name: Tod Mcgovern II Age: 35 yrs Sex: Male : 1985 Arrival Date: 06/25/2021 Time: 07:11 Bed 12 Private MD: Diagnosis: Vomiting, unspecified;Diarrhea, unspecified;Other fatigue Presentation: 06/25 07:31 Chief complaint: Patient states: N/V and headache that started last night, denies fever ph or abdominal pain. Coronavirus screen: Vaccine status: Patient reports receiving the 1st dose of the Covid vaccine. Ebola Screen: No symptoms or risks identified at this time. Initial Sepsis Screen: Does the patient meet any 2 criteria? No. Patient's initial sepsis screen is negative. Does the patient have a suspected source of infection? No. Patient's initial sepsis screen is negative. Risk Assessment: Do you want to hurt yourself or someone else? Patient reports no desire to harm self or others. Onset of symptoms was June 25, 2021. 07:31 Method Of Arrival: Ambulatory ph 07:31 Acuity: ESTEVAN 3 ph Historical: - Allergies: 07:34 aloe vera; ph - PMHx: 07:34 depressive disorder; diabetes mellitus; Migraines; Hypercholesterolemia; ph - PSHx: 07:34 None; ph - Immunization history:: Adult Immunizations up to date. - Social history:: Smoking status: Patient reports the use of cigarette tobacco products, smokes one-half pack cigarettes per day. Screenin:38 Abuse screen: Denies threats or abuse. Nutritional screening: No deficits noted. ll1 Tuberculosis screening: No symptoms or risk factors identified. Fall Risk Total Bettencourt Fall Scale indicates No Risk (0-24 pts). Assessment: 07:38 General: Appears ill, Behavior is cooperative, appropriate for age. Pain: Complains of ll1 pain in head Quality of pain is described as aching. Neuro: No deficits noted. Cardiovascular: No deficits noted. GI: Abdomen is round Reports diarrhea, nausea, vomiting. 08:00 Reassessment: No changes from previously documented assessment. Patient and/or family ll1 updated on plan of care and expected duration. Pain level reassessed. Patient is alert, oriented x 3, equal unlabored respirations, skin warm/dry/pink. 09:00 Reassessment: No changes from previously documented assessment. Patient and/or family ll1 updated on plan of care and expected duration. Pain level reassessed. Patient is alert, oriented x 3, equal unlabored respirations, skin warm/dry/pink. Vital Signs: 07:31 BP 150 / 62; Pulse 86; Resp 18; Temp 98.1; Pulse Ox 98% on R/A; Height 5 ft. 9 in. ph (175.26 cm); ED Course: 07:11 Patient arrived in ED. mr 07:34 Triage completed. ph 07:35 Arm band placed on Patient placed in an exam room, on a stretcher. ph 07:36 Shubham Vázquez DO is Attending Physician. ms3 07:37 Toño Rodriguez RN is Primary Nurse. ll1 07:39 Patient has correct armband on for positive identification. Bed in low position. Call ll1 light in reach. Side rails up X 1. Cardiac monitoring not applicable on this patient. 07:47 Inserted saline lock: 20 gauge in left antecubital area, using aseptic technique. Blood mb7 collected. 08:54 Tod Morel MD is Referral Physician. ms3 09:10 No provider procedures requiring assistance completed. IV discontinued, intact, ll1 bleeding controlled, No redness/swelling at site. Pressure dressing applied. Administered Medications: 07:51 Drug: Pepcid (famotidine) 20 mg Route: IVP; Site: left antecubital; ll1 09:10 Follow up: Response: No adverse reaction ll1 07:51 Drug: Zofran (Ondansetron) 4 mg Route: IVP; Site: left antecubital; ll1 09:10 Follow up: Response: No adverse reaction; Nausea is decreased ll1 Outcome: 08:54 Discharge ordered by . ms3 09:12 Patient left the ED. ll1 09:12 Discharged to home ambulatory. ll1 09:12 Condition: stable 09:12 Discharge instructions given to patient, Instructed on discharge instructions, follow up and referral plans. medication usage, Demonstrated understanding of instructions, follow-up care, medications, Prescriptions given X 1. Signatures: Marija Carrero Selena Manuel RN RN ph Toño Rodriguez RN RN ll1 Shubham Vázquez DO DO ms3 MistycorinMarija mb7
--- NOTE | 2021-06-25 08:55 | EDPHYS ---
Physician Documentation [facility] Name: Tod Mcgovern II Age: 35 yrs Sex: Male : 1985 Arrival Date: 06/25/2021 Time: 07:11 Bed 12 Private MD: ED Physician Shubham Vázquez HPI: 06/25 07:46 This 35 yrs old Male presents to ER via Ambulatory with complaints of Vomiting/Diarrhea.ms3 07:46 The patient presents to the emergency department with nausea, vomiting, 2 times since ms3 the onset of symptoms, diarrhea. Onset: The symptoms/episode began/occurred last night. Possible causes: unknown. The symptoms are aggravated by nothing. The symptoms are alleviated by nothing. Associated signs and symptoms: The patient has no apparent associated signs or symptoms. Severity of symptoms: At their worst the symptoms were moderate in the emergency department the symptoms are unchanged. Historical: - Allergies: 07:34 aloe vera; ph - PMHx: 07:34 depressive disorder; diabetes mellitus; Migraines; Hypercholesterolemia; ph - PSHx: 07:34 None; ph - Immunization history:: Adult Immunizations up to date. - Social history:: Smoking status: Patient reports the use of cigarette tobacco products, smokes one-half pack cigarettes per day. ROS: 07:46 Constitutional: Negative for fever, and chills. Eyes: Negative for injury, pain, ms3 redness, and discharge, Neck: Negative for injury, pain, and swelling, Cardiovascular: Negative for chest pain, and palpitations. Respiratory: Negative for shortness of breath, cough, wheezing, and pleuritic chest pain. 07:46 MS/Extremity: Negative for injury and deformity, Skin: Negative for injury, rash, and discoloration, Neuro: Negative for headache, weakness, numbness, tingling. Psych: Negative for depression, anxiety, suicide ideation, homicidal ideation, and hallucinations. 07:46 Abdomen/GI: Positive for nausea, vomiting, and diarrhea. 07:46 MS/extremity: 07:46 All other systems are negative. Exam: 07:46 Constitutional: This is a well developed, well nourished patient who is awake, alert, ms3 and in no acute distress. Head/Face: Normocephalic, atraumatic. Neck: Trachea midline, no cervical lymphadenopathy. Supple, full range of motion without nuchal rigidity, or vertebral point tenderness. No Meningismus. Chest/axilla: Normal chest wall appearance and motion. Nontender with no deformity. Cardiovascular: Regular rate and rhythm with a normal S1 and S2. No gallops, murmurs, or rubs. Normal PMI, no JVD. No pulse deficits. Respiratory: Lungs have equal breath sounds bilaterally, clear to auscultation and percussion. No rales, rhonchi or wheezes noted. No increased work of breathing, no retractions or nasal flaring. Abdomen/GI: Soft, non-tender, with normal bowel sounds. No distension or tympany. No guarding or rebound. No evidence of tenderness throughout. Skin: Warm, dry with normal turgor. Normal color with no rashes, no lesions, and no evidence of cellulitis. MS/ Extremity: Pulses equal, no cyanosis. Neurovascular intact. Full, normal range of motion. Neuro: Awake and alert, GCS 15, oriented to person, place, time, and situation. Cranial nerves II-XII grossly intact. Motor strength 5/5 in all extremities. Sensory grossly intact. Cerebellar exam normal. Normal gait. Psych: Awake, alert, with orientation to person, place and time. Behavior, mood, and affect are within normal limits. Vital Signs: 07:31 BP 150 / 62; Pulse 86; Resp 18; Temp 98.1; Pulse Ox 98% on R/A; Height 5 ft. 9 in. ph (175.26 cm); MDM: 07:40 Patient medically screened. ms3 07:46 Differential diagnosis: Nonspecific abd pain, gastritis, viral gastroenteritis. ms3 09:17 Data reviewed: vital signs, nurses notes, lab test result(s). Counseling: I had a ms3 detailed discussion with the patient and/or guardian regarding: the historical points, exam findings, and any diagnostic results supporting the discharge/admit diagnosis, lab results, the need for outpatient follow up, to return to the emergency department if symptoms worsen or persist or if there are any questions or concerns that arise at home. ED course: Discussed labs and physical exam findings with patient. Patient is improved, in no apparent distress, nontoxic-appearing, ambulatory in emergency department. Patient to follow-up with primary care physician in 2 to 3 days for reevaluation. Patient understands and agrees with plan. All questions were answered. Return precautions discussed include worsening symptoms, or any other concerns. 06/25 07:40 Order name: CBC with Diff; Complete Time: 08:30 ms3 06/25 07:40 Order name: CMP; Complete Time: 08:30 ms3 06/25 07:40 Order name: Lipase; Complete Time: 08:30 ms3 06/25 07:48 Order name: Glucose, Ancillary Testing; Complete Time: 08:30 EDMS 06/25 07:40 Order name: IV Saline Lock; Complete Time: 07:41 ms3 06/25 07:40 Order name: Labs collected and sent; Complete Time: 07:41 ms3 Administered Medications: 07:51 Drug: Pepcid (famotidine) 20 mg Route: IVP; Site: left antecubital; ll1 09:10 Follow up: Response: No adverse reaction ll1 07:51 Drug: Zofran (Ondansetron) 4 mg Route: IVP; Site: left antecubital; ll1 09:10 Follow up: Response: No adverse reaction; Nausea is decreased ll1 Disposition Summary: 06/25/21 08:54 Discharge Ordered Location: Home ms3 Problem: new ms3 Symptoms: have improved ms3 Condition: Stable ms3 Diagnosis - Vomiting, unspecified ms3 - Diarrhea, unspecified ms3 - Other fatigue ms3 Followup: ms3 - With: Tod Morel MD - When: 2 - 3 days - Reason: Recheck today's complaints Discharge Instructions: - Discharge Summary Sheet ms3 - Vomiting, Adult ms3 - Form - Excuse from Work, School, or Physical Activity ms3 Forms: - Medication Reconciliation Form ms3 - Thank You Letter ms3 - Antibiotic Education ms3 - Prescription Opioid Use ms3 Prescriptions: - Zofran 4 mg Oral Tablet - take 1 tablet by ORAL route every 8-12 hours As needed; 20 tablet; Refills: 0, ms3 Product Selection Permitted Signatures: Dispatcher [employer] Selena Wallis RN RN ph Lewis, Lynsay, RN RN ll1 Shubham Vázquez DO DO ms3
[2021-06-25 09:21] VITALS: BP 150/62; TEMP 98.1; O2SAT 98
== END 2021-06-25 09:12 | disposition home or self-care (01) ==
LOC: ER 07:09
DX: R11.2 Nausea with vomiting, unspecified (principal); R19.7 Diarrhea, unspecified; R53.83 Other fatigue; E11.9 Type 2 diabetes mellitus without complications; I10 Essential (primary) hypertension; F17.210 Nicotine dependence, cigarettes, uncomplicated; Z91.048 Other nonmedicinal substance allergy status
CPT/HCPCS: 36415; 80053; 82947; 83690; 85025; 96374; 96375; 99284; J2405; J3490

== ENCOUNTER 2021-11-06 09:37 | Emergency (ER) | payer SELFPAY ==
--- NOTE | 2021-11-06 10:11 | ER ---
Nurse's Notes [facility] Name: Tod Mcgovern II Age: 35 yrs Sex: Male : 1985 Arrival Date: 11/06/2021 Time: 09:39 Bed Waiting Private MD: Diagnosis: Diarrhea, unspecified Presentation: 11/06 10:01 Chief complaint: Patient states: +D yesterday. Coronavirus screen: At this time, the tw2 client does not indicate any symptoms associated with coronavirus-19. Ebola Screen: Patient denies travel to an Ebola-affected area in the 21 days before illness onset. Initial Sepsis Screen: Does the patient meet any 2 criteria? No. Patient's initial sepsis screen is negative. Does the patient have a suspected source of infection? No. Patient's initial sepsis screen is negative. Risk Assessment: Do you want to hurt yourself or someone else? Patient reports no desire to harm self or others. Note provider in triage room performing assessment. Note provider saw pt in triage. Onset of symptoms was November 06, 2021. 10:01 Method Of Arrival: Ambulatory tw2 10:01 Acuity: ESTEVAN 4 tw2 Triage Assessment: 10:07 General: Appears in no apparent distress. obese, Behavior is calm, cooperative, tw2 appropriate for age. Pain: Denies pain. GI: Reports diarrhea. 10:07 Neuro: Level of Consciousness is awake, alert, obeys commands, Oriented to person, tw2 place, time, situation. Respiratory: Airway is patent Respiratory effort is even, unlabored, Respiratory pattern is regular, symmetrical. Historical: - Allergies: 10:07 aloe vera; tw2 - Home Meds: 10:07 None [Active]; tw2 - PMHx: 10:07 depressive disorder; diabetes mellitus; Hypercholesterolemia; Migraines; tw2 - Immunization history:: Adult Immunizations. - Social history:: Smoking status: Reported history of juuling and/or vaping. Screenin:07 Abuse screen: Denies threats or abuse. Nutritional screening: No deficits noted. tw2 Tuberculosis screening: No symptoms or risk factors identified. Fall Risk None identified. Assessment: 10:21 Reassessment: Patient appears in no apparent distress at this time. No changes from tw2 previously documented assessment. Patient and/or family updated on plan of care and expected duration. Pain level reassessed. Patient is alert, oriented x 3, equal unlabored respirations, skin warm/dry/pink. Vital Signs: 10:01 BP 142 / 82; Pulse 84; Resp 17; Temp 98.7(O); Pulse Ox 99% on R/A; tw2 ED Course: 09:39 Patient arrived in ED. mr 09:41 Cesar Gonzalez PA is PHCP. cp 09:41 Shubham Vázquez DO is Attending Physician. cp 10:00 Arm band placed on. tw2 10:07 Triage completed. tw2 10:22 Madison Elder, PAWEL is Primary Nurse. tw2 10:22 Patient has correct armband on for positive identification. tw2 10:22 No provider procedures requiring assistance completed. Patient did not have IV access tw2 during this emergency room visit. Administered Medications: No medications were administered Medication: 10:22 VIS not applicable for this client. tw2 Outcome: 10:10 Discharge ordered by MD. cp 10:22 Discharged to home ambulatory. tw2 10:22 Condition: stable 10:22 Condition: stable 10:22 Discharge instructions given to patient, Instructed on discharge instructions, follow up and referral plans. Demonstrated understanding of instructions, follow-up care. 10:22 Patient left the ED. tw2 Signatures: Magan Marija cyr Cesar Gonzalez PA PA cp Madison Elder, RN RN tw2
--- NOTE | 2021-11-06 10:12 | EDPHYS ---
Physician Documentation [facility] Name: Tod Mcgovern II Age: 35 yrs Sex: Male : 1985 Arrival Date: 11/06/2021 Time: 09:39 Bed Waiting Private MD: ED Physician Shubham Vázquez HPI: 11/06 10:05 This 35 yrs old Male presents to ER via Unassigned with complaints of Diarrhea. cp 10:05 The patient presents to the emergency department with diarrhea, that is intermittent, 6 cp times since yesterday. Onset: The symptoms/episode began/occurred yesterday. Possible causes: unknown. Associated signs and symptoms: Pertinent positives: bleeding from hemorrhoid, Pertinent negatives: abdominal pain, constipation, fever, nausea, vomiting. Severity of symptoms: in the emergency department the symptoms are unchanged. Historical: - Allergies: 10:07 aloe vera; tw2 - Home Meds: 10:07 None [Active]; tw2 - PMHx: 10:07 depressive disorder; diabetes mellitus; Hypercholesterolemia; Migraines; tw2 - Immunization history:: Adult Immunizations. - Social history:: Smoking status: Reported history of juuling and/or vaping. ROS: 10:06 Constitutional: Negative for body aches, chills, fever, malaise. cp 10:06 ENT: Negative for drainage from ear(s), ear pain, sore throat, difficulty swallowing, difficulty handling secretions. 10:06 Cardiovascular: Negative for chest pain. 10:06 Respiratory: Negative for cough, shortness of breath. 10:06 Abdomen/GI: Positive for diarrhea, Negative for abdominal pain, nausea, vomiting, constipation, abdominal cramps, anorexia, black/tarry stool. 10:06 Back: Negative for pain at rest, pain with movement. 10:06 : Negative for urinary symptoms. 10:06 Neuro: Negative for altered mental status, headache, weakness. 10:06 All other systems are negative. Exam: 10:07 Head/Face: Normocephalic, atraumatic. cp 10:07 Constitutional: The patient appears in no acute distress, alert, awake, comfortable, non-toxic, well developed, well nourished. 10:07 Eyes: Periorbital structures: appear normal, Conjunctiva: normal, no exudate, no injection, Sclera: no appreciated abnormality, Lids and lashes: appear normal, bilaterally. 10:07 ENT: External ear(s): are unremarkable, Nose: is normal, Mouth: Lips: moist, Oral mucosa: moist, Posterior pharynx: Airway: no evidence of obstruction, patent. 10:07 Chest/axilla: Inspection: normal. 10:07 Cardiovascular: Rate: normal. 10:07 Respiratory: the patient does not display signs of respiratory distress, Respirations: normal, no use of accessory muscles, no retractions, labored breathing, is not present. 10:07 Abdomen/GI: Inspection: obese Palpation: abdomen is soft and non-tender, in all quadrants. 10:07 Neuro: Orientation: is normal, Mentation: is normal, Motor: moves all fours, strength is normal, Gait: is steady, at a normal pace, without difficulty. Vital Signs: 10:01 BP 142 / 82; Pulse 84; Resp 17; Temp 98.7(O); Pulse Ox 99% on R/A; tw2 MDM: 10:09 Differential diagnosis: gastritis, appendicitis, diverticulitis, viral gastroenteritis, cp gastroenteritis. Data reviewed: vital signs, nurses notes, lab test result(s), and as a result, I will discharge patient. Counseling: I had a detailed discussion with the patient and/or guardian regarding: the historical points, exam findings, and any diagnostic results supporting the discharge/admit diagnosis, lab results, to return to the emergency department if symptoms worsen or persist or if there are any questions or concerns that arise at home. 10:10 Patient medically screened. cp 11/06 10:15 Order name: Glucose, Ancillary Testing EDAR 11/06 10:08 Order name: Blood Glucose Level; Complete Time: 10:08 tw2 Administered Medications: No medications were administered Disposition: 16:27 Co-signature as Attending Physician, Shubham Vázquez DO I was present in the emergency ms3 department and available for consultation in the care of this patient.. Disposition Summary: 11/06/21 10:10 Discharge Ordered Location: Home cp Problem: new cp Symptoms: are unchanged cp Condition: Stable cp Diagnosis - Diarrhea, unspecified cp Followup: cp - With: Private Physician - When: 1 - 2 days - Reason: Worsening of condition Discharge Instructions: - Food Choices to Help Relieve Diarrhea, Adult cp - Diarrhea, Adult cp - Discharge Summary Sheet tw2 - Form - Excuse from Work, School, or Physical Activity cp Forms: - Medication Reconciliation Form cp - Work release form tw2 - Thank You Letter cp - Antibiotic Education cp - Prescription Opioid Use cp Signatures: Cesar Gonzalez PA PA cp Wise, Tara, RN RN tw2 Shubham Vázquez DO DO ms3
[2021-11-06 10:36] VITALS: BP 142/82; TEMP 98.7; O2SAT 99
== END 2021-11-06 10:22 | disposition home or self-care (01) ==
LOC: ER 09:37
DX: R19.7 Diarrhea, unspecified (principal); Z91.048 Other nonmedicinal substance allergy status
CPT/HCPCS: 82947

== ENCOUNTER 2022-01-02 08:08 | Emergency (ER) | payer SELFPAY ==
--- NOTE | 2022-01-02 09:09 | RAD REPORT ---
EXAM DESCRIPTION: RAD - Chest Single View - 01/02/2022 8:55 am CLINICAL HISTORY: Cough COMPARISON: Chest Single View dated 04/22/2018; CHEST SINGLE VIEW dated 12/15/2013 FINDINGS: Lines: None. Lungs: No evidence of edema or pneumonia. Pleural: No significant pleural effusions or pneumothorax. Cardiac: The heart size is within normal limits. Mediastinum: Within normal limits. Bones: No acute fractures. Other: None IMPRESSION: No acute cardiopulmonary disease.
--- NOTE | 2022-01-02 09:56 | EDPHYS ---
Physician Documentation [facility] Name: Tod Mcgovern II Age: 36 yrs Sex: Male : 1985 Arrival Date: 01/02/2022 Time: 08:11 Bed 12 Private MD: ED Physician Shubham Vázquez HPI: 01/02 09:33 This 36 yrs old Male presents to ER via Ambulatory with complaints of Chest Congestion, kb Shortness Of Breath, Cough. Historical: - Allergies: 08:24 aloe vera (Rash); jl7 - Home Meds: 08:24 None [Active]; jl7 - PMHx: 08:24 depressive disorder; diabetes mellitus; Hypercholesterolemia; Migraines; jl7 - PSHx: 08:24 None; jl7 - Immunization history:: Client reports receiving the 2nd dose of the Covid vaccine. - Social history:: Smoking status: Patient reports use of chewing tobacco. Reported history of juuling and/or vaping. ROS: 09:30 Constitutional: Negative for fever, chills, and weight loss. kb 09:30 ENT: Positive for rhinorrhea, sinus congestion. 09:30 Respiratory: Positive for cough, shortness of breath, Negative for dyspnea on exertion, hemoptysis, orthopnea, pleurisy, sputum production, wheezing. 09:30 All other systems are negative. Exam: 09:30 Constitutional: This is a well developed, well nourished patient who is awake, alert, kb and in no acute distress. Head/Face: Normocephalic, atraumatic. ENT: Moist Mucous membranes Cardiovascular: Regular rate and rhythm with a normal S1 and S2. No gallops, murmurs, or rubs. No pulse deficits. Respiratory: Respirations even and unlabored. No increased work of breathing. Talking in full sentences Abdomen/GI: Soft, non-tender. No distention Skin: Warm, dry with normal turgor. Normal color. MS/ Extremity: Pulses equal, no cyanosis. Neurovascular intact. Full, normal range of motion. Neuro: Awake and alert, GCS 15, oriented to person, place, time, and situation. Moves all extremities. Normal gait. Psych: Awake, alert, with orientation to person, place and time. Behavior, mood, and affect are within normal limits. Vital Signs: 08:22 BP 135 / 98; Pulse 83; Resp 17; Temp 98; Pulse Ox 100% on R/A; Weight 136.08 kg; Height jl7 5 ft. 9 in. (175.26 cm); Pain 5/10; 08:22 Body Mass Index 44.30 (136.08 kg, 175.26 cm) jl7 MDM: 08:21 Patient medically screened. kb 09:30 Data reviewed: vital signs, nurses notes. Data interpreted: Pulse oximetry: on room air kb is 100 %. Interpretation: normal. Counseling: I had a detailed discussion with the patient and/or guardian regarding: the historical points, exam findings, and any diagnostic results supporting the discharge/admit diagnosis, lab results, radiology results, the need for outpatient follow up, a family practitioner, to return to the emergency department if symptoms worsen or persist or if there are any questions or concerns that arise at home. 01/02 08:25 Order name: COVID-19 SARS RT PCR (Document "Date of Onset" if Symptomatic); Complete kb Time: 09:29 01/02 08:25 Order name: Flu; Complete Time: 09:01 kb 01/02 08:25 Order name: Chest Single View XRAY; Complete Time: 09:10 kb Administered Medications: No medications were administered Disposition: 21:14 Co-signature as Attending Physician, Shubham Vázquez DO I was immediately available on-site ms3 in the Emergency Department for consultation in the care of the patient.. Disposition Summary: 01/02/22 09:56 Discharge Ordered Location: Home kb Condition: Stable kb Diagnosis - SARS-associated coronavirus as the cause of diseases classified elsewhere kb Followup: kb - With: Emergency Department - When: As needed - Reason: Worsening of condition Followup: kb - With: Private Physician - When: 2 - 3 days - Reason: Recheck today's complaints, Continuance of care, Re-evaluation by your physician Discharge Instructions: - Discharge Summary Sheet kb - COVID-19 kb - Viral Illness, Adult kb Forms: - Medication Reconciliation Form kb - Thank You Letter kb - Antibiotic Education kb - Prescription Opioid Use kb Signatures: Dispatcher [employer] Maggy Harley, Miles Keating RN RN jlShubham Dasilva DO DO ms3
--- NOTE | 2022-01-02 09:56 | ER ---
Nurse's Notes [facility] Name: Tod Mcgovern II Age: 36 yrs Sex: Male : 1985 Arrival Date: 01/02/2022 Time: 08:11 Bed 12 Private MD: Diagnosis: SARS-associated coronavirus as the cause of diseases classified elsewhere Presentation: 01/02 08:22 Chief complaint: Patient states: Exposed to COVID 3 days ago, started with cough, jl7 congestion and SOB since this morning. Coronavirus screen: Vaccine status: Patient reports receiving the 2nd dose of the covid vaccine. congestion, cough unrelated to allergies, Client presents with at least one sign or symptom that may indicate coronavirus-19. Standard/surgical mask placed on the client. Ebola Screen: No symptoms or risks identified at this time. Initial Sepsis Screen: Does the patient meet any 2 criteria? No. Patient's initial sepsis screen is negative. Does the patient have a suspected source of infection? No. Patient's initial sepsis screen is negative. Risk Assessment: Do you want to hurt yourself or someone else? Patient reports no desire to harm self or others. Onset of symptoms was January 02, 2022. 08:22 Method Of Arrival: Ambulatory jl7 08:22 Acuity: ESTEVAN 4 jl7 Triage Assessment: 08:24 General: Appears in no apparent distress. uncomfortable, Behavior is calm, cooperative, jl7 appropriate for age. Pain: Complains of pain in general chronic pain Pain currently is 5 out of 10 on a pain scale. Respiratory: Reports shortness of breath Onset: The symptoms/episode began/occurred this morning, the patient has mild shortness of breath. Historical: - Allergies: 08:24 aloe vera (Rash); jl7 - Home Meds: 08:24 None [Active]; jl7 - PMHx: 08:24 depressive disorder; diabetes mellitus; Hypercholesterolemia; Migraines; jl7 - PSHx: 08:24 None; jl7 - Immunization history:: Client reports receiving the 2nd dose of the Covid vaccine. - Social history:: Smoking status: Patient reports use of chewing tobacco. Reported history of juuling and/or vaping. Screenin:45 Abuse screen: Denies threats or abuse. Denies injuries from another. Nutritional jl7 screening: No deficits noted. Tuberculosis screening: No symptoms or risk factors identified. Fall Risk None identified. Assessment: 08:25 General: LIQUEFIER Maggy in triage assessing pt. jl7 08:25 Cardiovascular: Rhythm is regular. Respiratory: Airway is patent Respiratory effort is jl7 even, unlabored, Respiratory pattern is regular, Vital Signs: 08:22 BP 135 / 98; Pulse 83; Resp 17; Temp 98; Pulse Ox 100% on R/A; Weight 136.08 kg; Height jl7 5 ft. 9 in. (175.26 cm); Pain 5/10; 08:22 Body Mass Index 44.30 (136.08 kg, 175.26 cm) jl7 ED Course: 08:11 Patient arrived in ED. mr 08:18 Maggy Maher FNP-C [facility] kb 08:18 Shubham Vázquez DO is Attending Physician. kb 08:24 Triage completed. jl7 08:24 Arm band placed on right wrist. jl7 08:45 Patient has correct armband on for positive identification. jl7 08:45 No provider procedures requiring assistance completed. Patient did not have IV access jl7 during this emergency room visit. 08:50 COVID swab sent to lab. Flu and/or RSV swab sent to lab. jl7 08:57 Chest Single View XRAY In Process Unspecified. EDMS 10:48 Miles Dimas, PAWEL is Primary Nurse. jl7 Administered Medications: No medications were administered Medication: 08:45 VIS not applicable for this client. jl7 Outcome: 09:56 Discharge ordered by . kb 10:20 Discharged to home ambulatory. jl7 10:20 Condition: stable 10:20 Discharge instructions given to patient, Instructed on discharge instructions, follow up and referral plans. Demonstrated understanding of instructions, follow-up care. 10:53 Patient left the ED. jl7 Signatures: Dispatcher [employer] EDMS Maggy Maher FNP-C FNP-Ckb RiveraMarija mr Miles Dimas, RN RN jl7
[2022-01-02 10:57] VITALS: BP 135/98; TEMP 98; O2SAT 100
== END 2022-01-02 10:53 | disposition home or self-care (01) ==
LOC: ER 08:08
DX: U07.1 COVID-19 (principal); F17.220 Nicotine dependence, chewing tobacco, uncomplicated
CPT/HCPCS: 71045; 87804; 99283; U0003

== ENCOUNTER 2022-02-19 10:45 | Emergency (ER) | payer SELFPAY ==
[2022-02-19] MEDS ORDERED: DIPHENHYDRAMINE 50 MG/ML VIAL ONE (12:04)
[2022-02-19] MEDS ORDERED: METOCLOPRAMIDE 10 MG/2mL INJ ONE (12:04)
[2022-02-19] MEDS ORDERED: KETOROLAC 30 MG/ML INJ ONE (12:05)
[2022-02-19] MEDS ORDERED: NA CHLORIDE 0.9% 1,000 ML ONE (12:05)
[2022-02-19 12:18] LABS: Absolute Lymphocytes (CBC) 2.5 K/uL (0.7-4.9); Hematocrit 45.7 % (39.6-49.0); Lymphocytes % 30.6 % (15.3-44.8); MCV 85.4 fL (80-100); MPV 7.6 fL (7.6-11.3); RBC Red Blood Cell Count 5.35 M/uL (4.33-5.43)
[2022-02-19 12:21] LABS: Potassium 4.4 mmol/L (3.5-5.1)
--- NOTE | 2022-02-19 13:03 | EDPHYS ---
Physician Documentation [facility] Name: Tod Mcgovern II Age: 36 yrs Sex: Male : 1985 Arrival Date: 02/19/2022 Time: 10:48 Bed 12 Private MD: ED Physician Shubham Vázquez HPI: 02/19 13:03 This 36 yrs old Male presents to ER via Ambulatory with complaints of Diarrhea, Vision ms3 Problem, Migraine. 13:04 The patient complains of pain to the left yazidism. The patient describes the headache as ms3 throbbing. Onset: The symptoms/episode began/occurred last night. Associated signs and symptoms: The patient has no apparent associated signs or symptoms. Severity of symptoms: At its worst the pain was moderate, in the emergency department the pain is unchanged. Headache History: The patient has had previous headaches and this one is similar to previous episodes. The symptoms are alleviated by nothing. the symptoms are aggravated by lights. Historical: - Allergies: 11:31 aloe vera (rash); jh5 - PMHx: 11:31 depressive disorder; diabetes mellitus; Hypercholesterolemia; Migraines; cocaine 5 addict; recovered; - Immunization history:: Adult Immunizations up to date. - Social history:: Smoking status: Patient denies any tobacco usage or history of. ROS: 13:04 Constitutional: Negative for fever, and chills. Neck: Negative for injury, pain, and ms3 swelling, Cardiovascular: Negative for chest pain, and palpitations. Respiratory: Negative for shortness of breath, cough, wheezing, and pleuritic chest pain, Abdomen/GI: Negative for abdominal pain, nausea, vomiting, diarrhea, and constipation, MS/Extremity: Negative for injury and deformity, Skin: Negative for injury, rash, and discoloration. 13:04 Neuro: Positive for headache. 13:04 All other systems are negative. Exam: 13:04 Constitutional: This is a well developed, well nourished patient who is awake, alert, ms3 and in no acute distress. Head/Face: Normocephalic, atraumatic. Neck: Trachea midline, no cervical lymphadenopathy. Supple, full range of motion without nuchal rigidity, or vertebral point tenderness. No Meningismus. Chest/axilla: Normal chest wall appearance and motion. Nontender with no deformity. Cardiovascular: Regular rate and rhythm with a normal S1 and S2. No gallops, murmurs, or rubs. Normal PMI, no JVD. No pulse deficits. Respiratory: Lungs have equal breath sounds bilaterally, clear to auscultation and percussion. No rales, rhonchi or wheezes noted. No increased work of breathing, no retractions or nasal flaring. Abdomen/GI: Soft, non-tender, with normal bowel sounds. No distension or tympany. No guarding or rebound. No evidence of tenderness throughout. Skin: Warm, dry with normal turgor. Normal color with no rashes, no lesions, and no evidence of cellulitis. MS/ Extremity: Pulses equal, no cyanosis. Neurovascular intact. Full, normal range of motion. 13:04 Neuro: Orientation: is normal, Mentation: is normal, Memory: is normal, Cranial nerves: CN II- XII are normal as tested, Cerebellar function: is grossly normal, normal finger to nose testing, Motor: is normal, moves all fours, Sensation: is normal, no obvious gross deficits, Gait: is steady, at a normal pace. Vital Signs: 11:27 BP 142 / 75; Pulse 84; Resp 16; Temp 98.6; Pulse Ox 100% ; Weight 151 kg; Height 5 ft. jh5 9 in. (175.26 cm); Pain 6/10; 12:13 BP 139 / 74; Pulse 76; Resp 18; Pulse Ox 100% on R/A; Pain 0/10; ld1 13:34 BP 131 / 72; Pulse 74; Resp 18; Pulse Ox 100% on R/A; Pain 1/10; ld1 11:27 Body Mass Index 49.16 (151.00 kg, 175.26 cm) 5 MDM: 11:35 Patient medically screened. ms3 13:04 Data reviewed: vital signs, nurses notes, lab test result(s), and as a result, I will ms3 discharge patient. Counseling: I had a detailed discussion with the patient and/or guardian regarding: the historical points, exam findings, and any diagnostic results supporting the discharge/admit diagnosis, lab results, the need for outpatient follow up, to return to the emergency department if symptoms worsen or persist or if there are any questions or concerns that arise at home. ED course: Discussed labs with patient. Patient states her symptoms have improved since arrival to the emergency department. Patient ambulatory in emergency department, alert and orient x4, in no apparent distress, nontoxic-appearing, ambulatory in the emergency department. All questions were answered. Patient follow-up Dr. Travis and Dr. Arreguin in 2 to 3 days. Patient understands and agrees with plan. Return precautions discussed include worsening symptoms, or any other concerns. 02/19 11:35 Order name: CBC with Diff; Complete Time: 12:59 ms3 02/19 11:35 Order name: BMP; Complete Time: 12:59 ms3 02/19 11:49 Order name: Glucose, Ancillary Testing; Complete Time: 12:59 EDMS Administered Medications: 12:13 Drug: Reglan (metoCLOPramide) 10 mg Route: IVP; Site: left antecubital; ld1 12:13 Drug: Benadryl (diphenhydrAMINE) 25 mg Route: IVP; Site: left antecubital; ld1 12:13 Drug: NS 0.9% 1000 ml Route: IV; Rate: 1000 ml; Site: left antecubital; ld1 12:13 Drug: Ketorolac 10 mg Route: IVP; Site: left antecubital; ld1 Disposition Summary: 02/19/22 13:03 Discharge Ordered Location: Home ms3 Condition: Stable ms3 Diagnosis - Headache ms3 - Diarrhea, unspecified ms3 - Vision changes ms3 Followup: ms3 - With: Eder Travis MD - When: 2 - 3 days - Reason: Recheck today's complaints Followup: ms3 - With: Jean-Claude Arreguin DO - When: 2 - 3 days - Reason: Recheck today's complaints Discharge Instructions: - Discharge Summary Sheet ms3 - Diarrhea, Adult ms3 - General Headache Without Cause ms3 Forms: - Medication Reconciliation Form ms3 - Thank You Letter ms3 - Antibiotic Education ms3 - Prescription Opioid Use ms3 - Work release form ld1 Signatures: Dispatcher [employer] EDMS Shubham Vázquez DO DO ms3 Keisha Richmond, RN RN ld1 Lydia Kemp RN RN jh5
--- NOTE | 2022-02-19 13:03 | ER ---
Nurse's Notes [facility] Name: Tod Mcgovern II Age: 36 yrs Sex: Male : 1985 Arrival Date: 02/19/2022 Time: 10:48 Bed 12 Private MD: Diagnosis: Headache;Diarrhea, unspecified;Vision changes Presentation: 02/19 11:27 Chief complaint: Patient states: i have had pretty bad diarrhea since late last night; [facility] just this morning i am having blurred vision and I am diabetic and I was told when I have blurred vision to come to ER. I am scared I have diabetic retinopathy. Coronavirus screen: Vaccine status: Patient reports receiving the 2nd dose of the covid vaccine. Client denies travel out of the [place] in the last 14 days. Ebola Screen: Patient negative for fever greater than or equal to 101.5 degrees Fahrenheit, and additional compatible Ebola Virus Disease symptoms Patient denies exposure to infectious person. Patient denies travel to an Ebola-affected area in the 21 days before illness onset. Initial Sepsis Screen: Does the patient meet any 2 criteria? No. Patient's initial sepsis screen is negative. Does the patient have a suspected source of infection? No. Patient's initial sepsis screen is negative. Risk Assessment: Do you want to hurt yourself or someone else? Patient reports no desire to harm self or others. 11:27 Method Of Arrival: Ambulatory [facility] 11:27 Acuity: ESTEVAN 3 5 Triage Assessment: 11:31 General: Appears uncomfortable, obese, Behavior is calm, cooperative, appropriate for [facility] age. Pain: Complains of pain in head. GI: Reports diarrhea. Historical: - Allergies: 11:31 aloe vera (rash); jh5 - PMHx: 11:31 depressive disorder; diabetes mellitus; Hypercholesterolemia; Migraines; cocaine jh5 addict; recovered; - Immunization history:: Adult Immunizations up to date. - Social history:: Smoking status: Patient denies any tobacco usage or history of. Screenin:13 Abuse screen: Denies threats or abuse. Denies injuries from another. Nutritional ld1 screening: No deficits noted. Tuberculosis screening: No symptoms or risk factors identified. Fall Risk No fall in past 12 months (0 pts). Assessment: 12:13 General: Appears in no apparent distress. comfortable, Behavior is calm, cooperative, ld1 appropriate for age. Pain: Denies pain. Neuro: Level of Consciousness is awake, alert, obeys commands, Oriented to person, place, time, situation, Reports diplopia, dizziness. Cardiovascular: Capillary refill < 3 seconds Patient's skin is warm and dry. Respiratory: Airway is patent Respiratory effort is even, unlabored. GI: Abdomen is round non-distended. : No signs and/or symptoms were reported regarding the genitourinary system. 13:34 Reassessment: Patient appears in no apparent distress at this time. Patient and/or ld1 family updated on plan of care and expected duration. Pain level reassessed. Patient is alert, oriented x 3, equal unlabored respirations, skin warm/dry/pink. Patient states feeling better. Vital Signs: 11:27 BP 142 / 75; Pulse 84; Resp 16; Temp 98.6; Pulse Ox 100% ; Weight 151 kg; Height 5 ft. [facility] 9 in. (175.26 cm); Pain 6/10; 12:13 BP 139 / 74; Pulse 76; Resp 18; Pulse Ox 100% on R/A; Pain 0/10; ld1 13:34 BP 131 / 72; Pulse 74; Resp 18; Pulse Ox 100% on R/A; Pain 1/10; ld1 11:27 Body Mass Index 49.16 (151.00 kg, 175.26 cm) 5 ED Course: 10:48 Patient arrived in ED. rg4 11:26 Shubham Vázquez DO is Attending Physician. ms3 11:31 Triage completed. 5 11:31 Arm band placed on right wrist. 5 12:00 Keisha Richmond, PAWEL is Primary Nurse. ld1 12:13 Patient has correct armband on for positive identification. Placed in gown. Bed in low ld1 position. Call light in reach. Side rails up X2. Pulse ox on. NIBP on. Door closed. Noise minimized. Warm blanket given. 12:13 No provider procedures requiring assistance completed. Inserted saline lock: 20 gauge ld1 in left antecubital area, using aseptic technique. Blood collected. 13:01 Eder Travis MD is Referral Physician. ms3 13:02 Jean-Claude Arreguin DO is Referral Physician. ms3 13:34 IV discontinued, intact, bleeding controlled, No redness/swelling at site. ld1 Administered Medications: 12:13 Drug: Reglan (metoCLOPramide) 10 mg Route: IVP; Site: left antecubital; ld1 12:13 Drug: Benadryl (diphenhydrAMINE) 25 mg Route: IVP; Site: left antecubital; ld1 12:13 Drug: NS 0.9% 1000 ml Route: IV; Rate: 1000 ml; Site: left antecubital; ld1 12:13 Drug: Ketorolac 10 mg Route: IVP; Site: left antecubital; ld1 Medication: 12:13 VIS not applicable for this client. ld1 Outcome: 13:03 Discharge ordered by MD. ms3 13:34 Discharged to home ambulatory. ld1 13:34 Condition: stable 13:34 Discharge instructions given to patient, Instructed on discharge instructions, follow up and referral plans. Demonstrated understanding of instructions, follow-up care. 13:35 Patient left the ED. ld1 Signatures: Emily Ivan rg4 Shbuham Vázquez DO DO ms3 Keisha Richmond, RN RN ld1 Lydia Kemp RN RN jh5
[2022-02-19 13:42] VITALS: TEMP 98.6; O2SAT 100
[2022-02-19 13:44] VITALS: BP 131/72
== END 2022-02-19 13:35 | disposition home or self-care (01) ==
LOC: ER 10:45
DX: R19.7 Diarrhea, unspecified (principal); R51.9 Headache, unspecified; H53.8 Other visual disturbances; E11.9 Type 2 diabetes mellitus without complications; Z91.048 Other nonmedicinal substance allergy status
CPT/HCPCS: 36415; 80048; 82947; 85025; 96374; 96375; 99284; J1200; J2765; J7030

== ENCOUNTER 2022-09-02 16:01 | Emergency (ER) | payer OTHER, SELFPAY ==
[2022-09-02 16:27] LABS: Absolute Lymphocytes (CBC) 2.6 K/uL (0.7-4.9); Hematocrit 48.4 % (39.6-49.0); MCV 84.7 fL (80-100); MPV 8.2 fL (7.6-11.3); RBC Red Blood Cell Count 5.72 M/uL (4.33-5.43)
[2022-09-02] MEDS ORDERED: ONDANSETRON 4 MG/2 ML VIAL ONE (16:29)
[2022-09-02] MEDS ORDERED: NA CHLORIDE 0.9% 1,000 ML ONE (16:29)
[2022-09-02 16:48] LABS: Albumin 4.5 g/dL (3.4-5.0); Bilirubin Total 0.6 mg/dL (0.2-1.0)
[2022-09-02] MEDS ORDERED: ACETAMINOPHEN 500 MG TAB ONE (17:31)
[2022-09-02] MEDS ORDERED: NA CHLORIDE 0.9% 500 ML ONE (17:51)
[2022-09-02] MEDS ORDERED: METOCLOPRAMIDE 10 MG/2mL INJ ONE (17:51)
--- NOTE | 2022-09-02 18:31 | ER ---
Nurse's Notes [facility] Name: Tod Mcgovern II Age: 36 yrs Sex: Male : 1985 Arrival Date: 09/02/2022 Time: 16:01 Bed 5 Private MD: Diagnosis: Hyperglycemia, unspecified;Headache;Nausea Presentation: 09/02 16:06 Chief complaint: EMS states: Was at work climbing a structure, began to feel dizzy, ph thinks it's heat exhaustion, VSS, FSBG 400, hx of diabetes, is not currently on medications. Coronavirus screen: Vaccine status: Patient reports receiving the 2nd dose of the covid vaccine. Ebola Screen: No symptoms or risks identified at this time. Initial Sepsis Screen: Does the patient meet any 2 criteria? No. Patient's initial sepsis screen is negative. Does the patient have a suspected source of infection? No. Patient's initial sepsis screen is negative. Risk Assessment: Do you want to hurt yourself or someone else? Patient reports no desire to harm self or others. Onset of symptoms was September 02, 2022. 16:06 Method Of Arrival: EMS: [facility] 16:06 Acuity: ESTEVAN 3 ph Triage Assessment: 16:11 General: Appears in no apparent distress. Behavior is calm, cooperative. Pain: ph Complains of pain in head. Neuro: Level of Consciousness is awake, alert, obeys commands, Oriented to person, place, time, situation, Reports dizziness. Cardiovascular: Capillary refill < 3 seconds in bilateral fingers Patient's skin is warm and dry. Respiratory: Airway is patent Respiratory effort is even, unlabored. GI: Reports nausea, Patient currently denies abdominal pain, vomiting. Musculoskeletal: Circulation, motion, and sensation intact. Range of motion: intact in all extremities. Historical: - Allergies: 16:08 aloe vera (rash); ph - PMHx: 16:08 cocaine addict; recovered; depressive disorder; diabetes mellitus; ph Hypercholesterolemia; Migraines; - Immunization history:: Adult Immunizations unknown. - Social history:: Smoking status: Patient reports the use of cigarette tobacco products, denies chronic smoking, but will smoke occasionally, Patient reports use of chewing tobacco. Reported history of juuling and/or vaping. Screenin:09 [facility] ED Fall Risk Assessment (Adult) History of falling in the last 3 months, ph including since admission No falls in past 3 months (0 pts) Confusion or Disorientation No (0 pts) Intoxicated or Sedated No (0 pts) Impaired Gait No (0 pts) Mobility Assist Device Used No (0 pt) Altered Elimination No (0 pt) Score/Fall Risk Level 0 - 2 = Low Risk Oriented to surroundings, Maintained a safe environment, Hourly rounding (assess needs \T\ fall precautionary measures) done. Abuse screen: Denies threats or abuse. Denies injuries from another. Nutritional screening: No deficits noted. Tuberculosis screening: No symptoms or risk factors identified. Assessment: 16:30 General: SEE TRIAGE ASSESSMENT. ph Vital Signs: 16:06 BP 155 / 83; Pulse 91; Resp 20; Temp 98.4; Pulse Ox 96% on R/A; Weight 145 kg; Height 5 ph ft. 8 in. ; 17:13 BP 145 / 91; Pulse 72; Resp 18; Pulse Ox 98% on R/A; ph 18:48 BP 138 / 78; Pulse 71; Resp 18; Temp 98; Pulse Ox 99% on R/A; ph 16:06 Body Mass Index 48.61 (145.00 kg, 172.72 cm) ph ED Course: 16:04 Patient arrived in ED. ss 16:05 Lorenzo Comer PA is PHCP. [facility] 16:05 Jeet Sierra MD is Attending Physician. [facility] 16:06 Selena Manuel, PAWEL is Primary Nurse. ph 16:08 Triage completed. ph 16:09 Arm band placed on Patient placed in an exam room. ph 16:10 Patient has correct armband on for positive identification. Placed in gown. Bed in low ph position. Call light in reach. Side rails up X 1. Pulse ox on. NIBP on. 16:21 Initial lab(s) drawn, by me, sent to lab. Inserted saline lock: 20 gauge in left em1 antecubital area, using aseptic technique. Blood collected. 16:32 No provider procedures requiring assistance completed. ph 18:48 IV discontinued, intact, bleeding controlled, No redness/swelling at site. Pressure ph dressing applied. Administered Medications: 16:32 Drug: NS 0.9% IV 1000 ml Route: IV; Rate: 1 bolus; Site: left antecubital; ph 18:00 Follow up: Response: No adverse reaction; IV Status: Completed infusion; IV Intake: ph 1000ml 16:32 Drug: Ondansetron IVP 4 mg Route: IVP; Site: left antecubital; ph 18:00 Follow up: Response: No adverse reaction ph 17:28 CANCELLED (Duplicate Order): NS 0.9% IV 1000 ml IV at 1 bolus Per protocol; 1000 mL jmm bolus 17:29 Drug: Acetaminophen PO 1000 mg Route: PO; ph 18:00 Follow up: Response: No adverse reaction ph 18:00 Drug: metoCLOPramide IVP 20 mg Route: IVP; Site: left antecubital; ph 18:00 Follow up: Response: No adverse reaction ph 18:00 Drug: NS 0.9% IV 500 ml Route: IV; Rate: bolus; Site: left antecubital; ph 18:48 Follow up: Response: No adverse reaction; IV Status: Completed infusion; IV Intake: ph 500ml Medication: 16:09 VIS not applicable for this client. ph Intake: 18:00 IV: 1000ml; Total: 1000ml. ph 18:48 IV: 500ml; Total: 1500ml. ph Outcome: 18:31 Discharge ordered by . vicky 18:47 Discharged to home ambulatory. ph 18:47 Condition: good 18:47 Discharge instructions given to patient, Instructed on discharge instructions, follow up and referral plans. medication usage, Demonstrated understanding of instructions, follow-up care, medications, Prescriptions given X 2. 18:48 Patient left the ED. ph Signatures: Lorenzo Cmoer PA PA jmm Martinez, Eric em1 Susan Potter RN RN Selena Manuel RN RN ph Corrections: (The following items were deleted from the chart) 16:09 16:06 Chief complaint: EMS states: Was at work climbing a structure, began to feel ph dizzy, thinks it's heat exhaustion, VSS, FSBG 400, no hx of diabetes ph
--- NOTE | 2022-09-02 18:31 | EDPHYS ---
Physician Documentation [facility] Name: Tod Mcgovern II Age: 36 yrs Sex: Male : 1985 Arrival Date: 09/02/2022 Time: 16:01 Bed 5 Private MD: ED Physician Jeet Sierra HPI: 09/02 18:28 This 36 yrs old Male presents to ER via EMS with complaints of nausea. jmm 18:28 This is a 36 year old male with a history of depression, dm that presents to the ED jmm with complaints of nausea, headache he attributes to heat exposure. BGL 400 on scene. Denies diarrhea. Denies dizziness. . Historical: - Allergies: 16:08 aloe vera (rash); ph - PMHx: 16:08 cocaine addict; recovered; depressive disorder; diabetes mellitus; ph Hypercholesterolemia; Migraines; - Immunization history:: Adult Immunizations unknown. - Social history:: Smoking status: Patient reports the use of cigarette tobacco products, denies chronic smoking, but will smoke occasionally, Patient reports use of chewing tobacco. Reported history of juuling and/or vaping. ROS: 18:28 Constitutional: Positive for fatigue. jmm 18:28 Abdomen/GI: Positive for nausea. 18:28 Neuro: Positive for headache. 18:28 All other systems are negative. Exam: 18:28 Constitutional: This is a well developed, well nourished patient who is awake, alert, jmm and in no acute distress. Head/Face: atraumatic. Eyes: EOMI, no conjunctival erythema appreciated ENT: Moist Mucus Membranes Neck: Trachea midline, Supple Chest/axilla: Normal chest wall appearance and motion. Cardiovascular: Regular rate and rhythm. No edema appreciated Respiratory: Normal respirations, no respiratory distress appreciated Abdomen/GI: Non distended Back: Normal ROM Skin: General appearance color normal MS/ Extremity: Moves all extremities, no obvious deformities appreciated, no edema noted to the lower extremities Neuro: Awake and alert Psych: Behavior is normal, Mood is normal, Patient is cooperative and pleasant Vital Signs: 16:06 BP 155 / 83; Pulse 91; Resp 20; Temp 98.4; Pulse Ox 96% on R/A; Weight 145 kg; Height 5 ph ft. 8 in. ; 17:13 BP 145 / 91; Pulse 72; Resp 18; Pulse Ox 98% on R/A; ph 18:48 BP 138 / 78; Pulse 71; Resp 18; Temp 98; Pulse Ox 99% on R/A; ph 16:06 Body Mass Index 48.61 (145.00 kg, 172.72 cm) ph MDM: 16:05 Patient medically screened. [facility] 18:29 Differential diagnosis: migraine, rhadomyolosis. Data reviewed: vital signs, nurses [facility] notes, lab test result(s). I considered the following discharge prescriptions or medication management in the emergency department Medications were administered in the Emergency Department. See MAR. Counseling: I had a detailed discussion with the patient and/or guardian regarding: the historical points, exam findings, and any diagnostic results supporting the discharge/admit diagnosis, lab results, the need for outpatient follow up, to return to the emergency department if symptoms worsen or persist or if there are any questions or concerns that arise at home. ED course: Patient states feeling much better. Patient advised to follow up with pcp and otherwise given strict return precautions. Patient understood and agrees with the plan of care. . 09/02 16:05 Order name: CBC with Diff; Complete Time: 16:46 [facility] 09/02 16:05 Order name: CMP; Complete Time: 16:53 [facility] 09/02 16:05 Order name: Lipase; Complete Time: 16:53 [facility] 09/02 16:05 Order name: CPK; Complete Time: 16:53 [facility] 09/02 16:05 Order name: IV Saline Lock; Complete Time: 16:32 [facility] 09/02 16:05 Order name: Labs collected and sent; Complete Time: 16:32 [facility] Administered Medications: 16:32 Drug: NS 0.9% IV 1000 ml Route: IV; Rate: 1 bolus; Site: left antecubital; ph 18:00 Follow up: Response: No adverse reaction; IV Status: Completed infusion; IV Intake: ph 1000ml 16:32 Drug: Ondansetron IVP 4 mg Route: IVP; Site: left antecubital; ph 18:00 Follow up: Response: No adverse reaction ph 17:28 CANCELLED (Duplicate Order): NS 0.9% IV 1000 ml IV at 1 bolus Per protocol; 1000 mL [facility] bolus 17:29 Drug: Acetaminophen PO 1000 mg Route: PO; ph 18:00 Follow up: Response: No adverse reaction ph 18:00 Drug: metoCLOPramide IVP 20 mg Route: IVP; Site: left antecubital; ph 18:00 Follow up: Response: No adverse reaction ph 18:00 Drug: NS 0.9% IV 500 ml Route: IV; Rate: bolus; Site: left antecubital; ph 18:48 Follow up: Response: No adverse reaction; IV Status: Completed infusion; IV Intake: ph 500ml Disposition Summary: 09/02/22 18:31 Discharge Ordered Location: Home [facility] Condition: Stable [facility] Diagnosis - Hyperglycemia, unspecified [facility] - Headache [facility] - Nausea [facility] Followup: [facility] - With: Private Physician - When: 2 - 3 days - Reason: Recheck today's complaints, Continuance of care, Re-evaluation by your physician Discharge Instructions: - Discharge Summary Sheet [facility] - Migraine Headache [facility] - Hyperglycemia [facility] Forms: - Work release form [facility] - Medication Reconciliation Form [facility] - Thank You Letter [facility] - Antibiotic Education [facility] - Prescription Opioid Use [facility] - [email or web address] [facility] Prescriptions: - ondansetron 4 mg Oral Tablet,disintegrating - take 1 tablet by ORAL route every 4-6 hours As needed as needed for nausea and m vomiting; 30 tablet; Refills: 0, Product Selection Permitted - Metformin 500 mg Oral Tablet - take 1 tablet by ORAL route once daily for 7 days Then take 1 tablet with m morning meals AND evening meals; 21 tablet; Refills: 0, Product Selection Permitted Signatures: Dispatcher MedHo Lorenzo Vazquez PA PA jmm Hall, Patricia RN RN ph Corrections: (The following items were deleted from the chart) 17:28 17:24 NS 0.9% IV 1000 ml IV at 1 bolus Per protocol; 1000 mL bolus ordered. [facility]
[2022-09-02 19:47] VITALS: BP 138/78; TEMP 98; O2SAT 99
== END 2022-09-02 18:48 | disposition home or self-care (01) ==
LOC: ER 16:01
DX: E11.65 Type 2 diabetes mellitus with hyperglycemia (principal); R51.9 Headache, unspecified; F17.210 Nicotine dependence, cigarettes, uncomplicated
CPT/HCPCS: 85025; 36415; 82550; 83690; 80053; J2765; J2405; J7040; J7030

== ENCOUNTER 2022-10-27 14:54 | Emergency (ER) | payer OTHER ==
--- NOTE | 2022-10-27 16:16 | ER ---
Nurse's Notes [facility] Name: Tod Mcgovern II Age: 36 yrs Sex: Male : 1985 Arrival Date: 10/27/2022 Time: 14:54 Bed 18 Private MD: Diagnosis: Rash and other nonspecific skin eruption Presentation: 10/27 15:24 Chief complaint: Patient states: Arms, chest, back, neck, and thighs rash since Friday, nj1 seems "slightly better" but it hurts and itches really bad. Has tried OTC lotions with no success. Coronavirus screen: Vaccine status: Patient reports receiving the 2nd dose of the covid vaccine. Ebola Screen: Patient denies travel to an Ebola-affected area in the 21 days before illness onset. Initial Sepsis Screen: Does the patient meet any 2 criteria? No. Patient's initial sepsis screen is negative. Does the patient have a suspected source of infection? No. Patient's initial sepsis screen is negative. Risk Assessment: Do you want to hurt yourself or someone else? Patient reports no desire to harm self or others. Onset of symptoms was October 21, 2022. 15:24 Method Of Arrival: Ambulatory [facility] 15:24 Acuity: ESTEVAN 4 nj1 Historical: - Allergies: 15:27 aloe vera (rash); nj1 - PMHx: 15:27 Migraines; diabetes mellitus; depressive disorder; cocaine addict; recovered; nj1 - PSHx: 15:27 None; nj1 - Immunization history:: Client reports receiving the 2nd dose of the Covid vaccine. - Social history:: Smoking status: Patient reports the use of cigarette tobacco products, smokes one-half pack cigarettes per day, Reported history of juuling and/or vaping. Screenin:47 [facility] ED Fall Risk Assessment (Adult) History of falling in the last 3 months, kc6 including since admission No falls in past 3 months (0 pts) Confusion or Disorientation No (0 pts) Intoxicated or Sedated No (0 pts) Impaired Gait No (0 pts) Mobility Assist Device Used No (0 pt) Altered Elimination No (0 pt) Score/Fall Risk Level 0 - 2 = Low Risk. Abuse screen: Denies threats or abuse. Denies injuries from another. Nutritional screening: No deficits noted. Tuberculosis screening: No symptoms or risk factors identified. Assessment: 15:45 General: Appears in no apparent distress. comfortable, obese, Behavior is calm, kc6 cooperative, appropriate for age. Pain: Denies pain. Neuro: Level of Consciousness is awake, alert, obeys commands, Oriented to person, place, time, situation, Appropriate for age. Cardiovascular: Capillary refill < 3 seconds. Respiratory: Airway is patent Trachea midline Respiratory effort is even, unlabored, Respiratory pattern is regular, symmetrical. GI: No signs and/or symptoms were reported involving the gastrointestinal system. : No signs and/or symptoms were reported regarding the genitourinary system. EENT: No signs and/or symptoms were reported regarding the EENT system. Musculoskeletal: No signs and/or symptoms reported regarding the musculoskeletal system. Circulation, motion, and sensation intact. Capillary refill < 3 seconds, Range of motion: intact in all extremities. 16:45 Reassessment: Patient appears in no apparent distress at this time. No changes from kc6 previously documented assessment. Patient and/or family updated on plan of care and expected duration. Pain level reassessed. Patient is alert, oriented x 3, equal unlabored respirations, skin warm/dry/pink. Vital Signs: 15:24 BP 142 / 81; Pulse 89; Resp 18; Temp 98.3; Pulse Ox 99% on R/A; Weight 145.15 kg; nj1 Height 5 ft. 9 in. ; Pain 4/10; 15:24 Body Mass Index 47.26 (145.15 kg, 175.26 cm) nj1 15:24 Pain Scale: Adult [facility] ED Course: 14:56 Patient arrived in ED. mr 15:09 Carol Parikh FNP-C [facility]. snw 15:09 Jay Arreguin MD is Attending Physician. snw 15:27 Triage completed. nj1 15:28 Arm band placed on left wrist. nj1 15:29 Dee Phan, PAWEL is Primary Nurse. kc6 15:45 Patient has correct armband on for positive identification. Bed in low position. Call kc6 light in reach. Side rails up X 1. 16:48 No provider procedures requiring assistance completed. Patient did not have IV access kc6 during this emergency room visit. Administered Medications: 16:29 Drug: predniSONE PO 20 mg Route: PO; kc6 16:45 Follow up: Response: No adverse reaction kc6 16:29 Drug: Famotidine PO 20 mg Route: PO; kc6 16:45 Follow up: Response: No adverse reaction kc6 16:29 Drug: ZyrTEC - Cetirizine PO 10 mg Route: PO; kc6 16:45 Follow up: Response: No adverse reaction kc6 Medication: 16:48 VIS not applicable for this client. kc6 Outcome: 16:16 Discharge ordered by . hansa 16:48 Discharged to home ambulatory. kc6 16:48 Condition: stable 16:48 Discharge instructions given to patient, Instructed on discharge instructions, follow up and referral plans. medication usage, Demonstrated understanding of instructions, follow-up care, medications, Prescriptions given X 4. 16:49 Patient left the ED. kc6 Signatures: Carol Parikh, BROOM MACHINE OPERATORJenniferC BROOM MACHINE OPERATOR-Monica CarreroMarija mr PhanDee, RN RN kc6 Khushboo Atwood RN RN nj1 Corrections: (The following items were deleted from the chart) 15:28 15:27 PMHx: Hypercholesterolemia; nj1 nj1
--- NOTE | 2022-10-27 16:16 | EDPHYS ---
Physician Documentation [facility] Name: Tod Mcgovern II Age: 36 yrs Sex: Male : 1985 Arrival Date: 10/27/2022 Time: 14:54 Bed 18 Private MD: ED Physician Jay Arreguin HPI: 10/27 16:13 This 36 yrs old Male presents to ER via Ambulatory with complaints of Rash. snw 16:13 The patient's rash thought to be caused by Dermatitis. The rash is located on the back, snw chest, right leg and left leg. Onset: The symptoms/episode began/occurred suddenly, 7 day(s) ago, and became worse and became persistent. Severity of symptoms: At their worst the symptoms were moderate in the emergency department the symptoms are worse mildly. The patient has not experienced similar symptoms in the past. It is unknown whether or not the patient has recently seen a physician. Historical: - Allergies: 15:27 aloe vera (rash); nj1 - PMHx: 15:27 Migraines; diabetes mellitus; depressive disorder; cocaine addict; recovered; nj1 - PSHx: 15:27 None; nj1 - Immunization history:: Client reports receiving the 2nd dose of the Covid vaccine. - Social history:: Smoking status: Patient reports the use of cigarette tobacco products, smokes one-half pack cigarettes per day, Reported history of juuling and/or vaping. ROS: 17:12 Constitutional: Negative for fever, chills, and weight loss, Eyes: Negative for injury, snw pain, redness, and discharge, ENT: Negative for injury, pain, and discharge, Neck: Negative for injury, pain, and swelling, Cardiovascular: Negative for chest pain, palpitations, and edema, Respiratory: Negative for shortness of breath, cough, wheezing, and pleuritic chest pain, Abdomen/GI: Negative for abdominal pain, nausea, vomiting, diarrhea, and constipation, Back: Negative for injury and pain, : Negative for injury, bleeding, discharge, and swelling, MS/Extremity: Negative for injury and deformity, Neuro: Negative for headache, weakness, numbness, tingling, and seizure, Psych: Negative for depression, anxiety, suicide ideation, homicidal ideation, and hallucinations. 17:12 Skin: Positive for rash, diffusely. Exam: 17:12 Constitutional: This is a well developed, well nourished patient who is awake, alert, snw and in no acute distress. Head/Face: Normocephalic, atraumatic. Eyes: Pupils equal round and reactive to light, extra-ocular motions intact. Lids and lashes normal. Conjunctiva and sclera are non-icteric and not injected. Cornea within normal limits. Periorbital areas with no swelling, redness, or edema. ENT: Nares patent. No nasal discharge, no septal abnormalities noted. Tympanic membranes are normal and external auditory canals are clear. Oropharynx with no redness, swelling, or masses, exudates, or evidence of obstruction, uvula midline. Mucous membranes moist. Neck: Trachea midline, no thyromegaly or masses palpated, and no cervical lymphadenopathy. Supple, full range of motion without nuchal rigidity, or vertebral point tenderness. No Meningismus. Cardiovascular: Regular rate and rhythm with a normal S1 and S2. No gallops, murmurs, or rubs. Normal PMI, no JVD. No pulse deficits. Respiratory: Lungs have equal breath sounds bilaterally, clear to auscultation and percussion. No rales, rhonchi or wheezes noted. No increased work of breathing, no retractions or nasal flaring. 17:12 Skin: Appearance: normal except for affected area, rash can be described as erythematous, papular, and is diffusely located, some areas like cut out of muscle shirt mildly spared with areas at borders peeling and dry. Vital Signs: 15:24 BP 142 / 81; Pulse 89; Resp 18; Temp 98.3; Pulse Ox 99% on R/A; Weight 145.15 kg; nj1 Height 5 ft. 9 in. ; Pain 4/10; 15:24 Body Mass Index 47.26 (145.15 kg, 175.26 cm) [facility] 15:24 Pain Scale: Adult nj MDM: 16:00 Patient medically screened. snw 16:14 Differential diagnosis: allergic reaction, heat rash, impetigo, sun sensitivity, snw eczema. Data reviewed: vital signs, nurses notes. Counseling: I had a detailed discussion with the patient and/or guardian regarding the historical points, exam findings, and any diagnostic results supporting the discharge/admit diagnosis, the presence of at least one elevated blood pressure reading (>120/80) during this emergency department visit, the need for outpatient follow up, for definitive care, to return to the emergency department if symptoms worsen or persist or if there are any questions or concerns that arise at home. Special discussion: Based on the history and exam findings, there is no indication for further emergent testing or inpatient evaluation. I discussed with the patient/guardian the need to see the primary care provider for further evaluation of the symptoms. Administered Medications: 16:29 Drug: predniSONE PO 20 mg Route: PO; kc6 16:45 Follow up: Response: No adverse reaction kc6 16:29 Drug: Famotidine PO 20 mg Route: PO; kc6 16:45 Follow up: Response: No adverse reaction kc6 16:29 Drug: ZyrTEC - Cetirizine PO 10 mg Route: PO; kc6 16:45 Follow up: Response: No adverse reaction kc6 Disposition Summary: 10/27/22 16:16 Discharge Ordered Location: Home snw Condition: Stable snw Diagnosis - Rash and other nonspecific skin eruption snw Followup: snw - With: Emergency Department - When: As needed - Reason: Worsening of condition Followup: snw - With: Private Physician - When: 7 - 10 days - Reason: Recheck today's complaints, Continuance of care, Re-evaluation by your physician Discharge Instructions: - Discharge Summary Sheet snw - Rash, Adult snw Forms: - Work release form snw - Medication Reconciliation Form snw - Thank You Letter snw - Antibiotic Education snw - Prescription Opioid Use snw - Patient Portal Instructions snw - Leadership Thank You Letter snw Prescriptions: - Zyrtec 10 mg Oral Tablet - take 1 tablet by ORAL route once daily As needed; 20 tablet; Refills: 0, snw Product Selection Permitted - Metformin 1,000 mg Oral Tablet - take 1 tablet by ORAL route every 12 hours with morning and evening meals; 20 snw tablet; Refills: 0, Product Selection Permitted - Prednisone 20 mg Oral Tablet - take 2 tablets by ORAL route once daily for 5 days; 10 tablet; Refills: 0, snw Product Selection Permitted - Pepcid 20 mg Oral Tablet - take 1 tablet by ORAL route once daily; 20 tablet; Refills: 0, Product snw Selection Permitted Signatures: Carol Parikh FNP-Akiko CAR SALES CONSULTANT-Ronaldow Dee Phan RN RN kc6 Khushboo Atwood RN RN nj1 Corrections: (The following items were deleted from the chart) 15:28 15:27 PMHx: Hypercholesterolemia; nj1 nj1
[2022-10-27] MEDS ORDERED: FAMOTIDINE 20 MG TAB ONE (16:34)
[2022-10-27] MEDS ORDERED: predniSONE 20 MG TAB ONE (16:34)
[2022-10-27] MEDS ORDERED: CETIRIZINE HCL 5 MG TABLET ONE (16:34)
[2022-10-27 16:53] VITALS: BP 142/81; TEMP 98.3; O2SAT 99
== END 2022-10-27 16:49 | disposition home or self-care (01) ==
LOC: ER 14:54
DX: R21 Rash and other nonspecific skin eruption (principal); F17.210 Nicotine dependence, cigarettes, uncomplicated; Z91.048 Other nonmedicinal substance allergy status
CPT/HCPCS: 99283; J7512

== ENCOUNTER 2022-11-03 17:08 | Emergency (ER) | payer OTHER ==
[2022-11-03] MEDS ORDERED: FAMOTIDINE 20 MG TAB ONE (18:36)
[2022-11-03] MEDS ORDERED: predniSONE 20 MG TAB ONE (18:36)
[2022-11-03] MEDS ORDERED: DIPHENHYDRAMINE 50 MG/ML VIAL ONE (18:36)
--- NOTE | 2022-11-03 18:37 | ER ---
Nurse's Notes [facility] Name: Tod Mcgovern II Age: 36 yrs Sex: Male : 1985 Arrival Date: 11/03/2022 Time: 17:08 Bed 10 Private MD: Diagnosis: Irritant contact dermatitis due to detergents;Allergic contact dermatitis, unspecified cause;Dermatitis, unspecified;Rash and other nonspecific skin eruption Presentation: 11/03 17:24 Chief complaint: Patient states: he has had a generalized body rash for approx 2 weeks. ap3 patient reports it was improving with steroids, which he completed and now that he is off of them it is getting worse again. Coronavirus screen: At this time, the client does not indicate any symptoms associated with coronavirus-19. Ebola Screen: No symptoms or risks identified at this time. Initial Sepsis Screen: Does the patient meet any 2 criteria? No. Patient's initial sepsis screen is negative. Does the patient have a suspected source of infection? No. Patient's initial sepsis screen is negative. Risk Assessment: Do you want to hurt yourself or someone else? Patient reports no desire to harm self or others. Onset of symptoms was October 20, 2022. 17:24 Method Of Arrival: Ambulatory ap3 17:24 Acuity: ESTEVAN 4 ap3 Triage Assessment: 17:29 General: Appears in no apparent distress. Behavior is cooperative, appropriate for age, ap3 anxious. Pain: Complains of pain in generalized discomfort from rash. Neuro: Level of Consciousness is awake, alert, obeys commands, Oriented to person, place, time, situation. Cardiovascular: Patient's skin is warm and dry. Respiratory: Airway is patent Respiratory effort is even, unlabored, Respiratory pattern is regular, symmetrical. Derm: Rash noted that is itchy. Historical: - Allergies: 17:25 aloe vera (rash); ap3 - Home Meds: 17:25 Metformin Oral [Active]; ap3 - PMHx: 17:25 cocaine addict; recovered; depressive disorder; diabetes mellitus; Migraines; ap3 - Immunization history:: Client reports receiving the 2nd dose of the Covid vaccine. - Social history:: Smoking status: Patient reports the use of cigarette tobacco products, denies chronic smoking, but will smoke occasionally, Reported history of juuling and/or vaping. Screenin:30 [facility] ED Fall Risk Assessment (Adult) History of falling in the last 3 months, ap3 including since admission No falls in past 3 months (0 pts). Abuse screen: Denies threats or abuse. Nutritional screening: No deficits noted. Tuberculosis screening: No symptoms or risk factors identified. Vital Signs: 17:24 BP 143 / 94; Pulse 84; Resp 17; Temp 98.7; Pulse Ox 98% ; Weight 141.97 kg; ap3 ED Course: 17:09 Patient arrived in ED. rg4 17:24 Humera Richmond, RN is Primary Nurse. ap3 17:25 Triage completed. ap3 17:26 Cesar Hoyos MD is Attending Physician. lobito 17:30 Arm band placed on right wrist. ap3 17:30 Patient has correct armband on for positive identification. Bed in low position. Call ap3 light in reach. Pulse ox on. NIBP on. 18:51 Provided Education on: discharge instruction. ap3 18:51 No provider procedures requiring assistance completed. Patient did not have IV access ap3 during this emergency room visit. Administered Medications: 18:39 Drug: diphenhydrAMINE IM 50 mg Route: IM; Site: right deltoid; ap3 18:51 Follow up: Response: No adverse reaction ap3 18:39 Drug: predniSONE PO 60 mg Route: PO; ap3 18:51 Follow up: Response: No adverse reaction ap3 18:39 Drug: Famotidine PO 40 mg Route: PO; ap3 18:51 Follow up: Response: No adverse reaction ap3 Medication: 18:51 VIS not applicable for this client. ap3 Outcome: 18:36 Discharge ordered by . lobito 18:51 Discharged to home ambulatory. ap3 18:51 Condition: good 18:51 Discharge instructions given to patient, Instructed on discharge instructions, follow up and referral plans. medication usage, Demonstrated understanding of instructions, follow-up care, medications, Prescriptions given X 3. 19:03 Patient left the ED. ap3 Signatures: Cesar Hoyos MD MD cha Garcia, Rubi rg4 Humera Richmond, PAWEL RN ap3
--- NOTE | 2022-11-03 18:37 | EDPHYS ---
Physician Documentation [facility] Name: Tod Mcgovern II Age: 36 yrs Sex: Male : 1985 Arrival Date: 11/03/2022 Time: 17:08 Bed 10 Private MD: OBDULIA Physician Cesar Hoyos HPI: 11/03 18:30 This 36 yrs old Male presents to ER via Ambulatory with complaints of Rash. lobito 18:30 The patient's rash thought to be caused by Dermatitis Contact allergy an unknown cause. lobito The rash is located on the body diffusely. The rash can be described as erythematous. Onset: The symptoms/episode began/occurred 2 week(s) ago. Associated signs and symptoms: Pertinent positives: burning sensation, itching, Pertinent negatives: None. Severity of symptoms: At their worst the symptoms were mild in the emergency department the symptoms are unchanged. Treatment given at home: none. The patient has not experienced similar symptoms in the past. Historical: - Allergies: 17:25 aloe vera (rash); ap3 - Home Meds: 17:25 Metformin Oral [Active]; ap3 - PMHx: 17:25 cocaine addict; recovered; depressive disorder; diabetes mellitus; Migraines; ap3 - Immunization history:: Client reports receiving the 2nd dose of the Covid vaccine. - Social history:: Smoking status: Patient reports the use of cigarette tobacco products, denies chronic smoking, but will smoke occasionally, Reported history of juuling and/or vaping. ROS: 18:32 Constitutional: Negative for fever, chills, and weight loss, Eyes: Negative for injury, lobito pain, redness, and discharge, ENT: Negative for injury, pain, and discharge, Neck: Negative for injury, pain, and swelling, Cardiovascular: Negative for chest pain, palpitations, and edema, Respiratory: Negative for shortness of breath, cough, wheezing, and pleuritic chest pain, Abdomen/GI: Negative for abdominal pain, nausea, vomiting, diarrhea, and constipation, Back: Negative for injury and pain, : Negative for injury, bleeding, discharge, and swelling, MS/Extremity: Negative for injury and deformity, Neuro: Negative for headache, weakness, numbness, tingling, and seizure, Psych: Negative for depression, anxiety, suicide ideation, homicidal ideation, and hallucinations, Allergy/Immunology: Negative for hives, rash, and allergies, Endocrine: Negative for neck swelling, polydipsia, polyuria, polyphagia, and marked weight changes, Hematologic/Lymphatic: Negative for swollen nodes, abnormal bleeding, and unusual bruising. 18:32 Skin: Positive for rash, of the back and chest. Exam: 18:32 Constitutional: This is a well developed, well nourished patient who is awake, alert, lobito and in no acute distress. Head/Face: Normocephalic, atraumatic. Eyes: Pupils equal round and reactive to light, extra-ocular motions intact. Lids and lashes normal. Conjunctiva and sclera are non-icteric and not injected. Cornea within normal limits. Periorbital areas with no swelling, redness, or edema. ENT: Nares patent. No nasal discharge, no septal abnormalities noted. Tympanic membranes are normal and external auditory canals are clear. Oropharynx with no redness, swelling, or masses, exudates, or evidence of obstruction, uvula midline. Mucous membranes moist. Neck: Trachea midline, no thyromegaly or masses palpated, and no cervical lymphadenopathy. Supple, full range of motion without nuchal rigidity, or vertebral point tenderness. No Meningismus. Chest/axilla: Normal chest wall appearance and motion. Nontender with no deformity. No lesions are appreciated. Cardiovascular: Regular rate and rhythm with a normal S1 and S2. No gallops, murmurs, or rubs. Normal PMI, no JVD. No pulse deficits. Respiratory: Lungs have equal breath sounds bilaterally, clear to auscultation and percussion. No rales, rhonchi or wheezes noted. No increased work of breathing, no retractions or nasal flaring. Abdomen/GI: Soft, non-tender, with normal bowel sounds. No distension or tympany. No guarding or rebound. No evidence of tenderness throughout. Back: No spinal tenderness. No costovertebral tenderness. Full range of motion. Male : Normal genitalia with no discharge or lesions. MS/ Extremity: Pulses equal, no cyanosis. Neurovascular intact. Full, normal range of motion. Neuro: Awake and alert, GCS 15, oriented to person, place, time, and situation. Cranial nerves II-XII grossly intact. Motor strength 5/5 in all extremities. Sensory grossly intact. Cerebellar exam normal. Normal gait. Psych: Awake, alert, with orientation to person, place and time. Behavior, mood, and affect are within normal limits. 18:32 Musculoskeletal/extremity: DVT Exam: No signs of deep vein thrombosis. no pain, no swelling, no tenderness, negative Homans' sign noted on exam, no appreciated bluish discoloration, no erythema, no increased warmth. 18:32 Skin: Appearance: Color: normal in color, Temperature: normal temperature, Moisture: normal moisture, petechiae, not noted, ecchymosis, not noted, flushing, not noted, diaphoresis is not appreciated, swelling, is not appreciated, abscess, not appreciated, cellulitis, is not appreciated, induration, is not appreciated, injury, is not appreciated, contact dermatitis. Vital Signs: 17:24 BP 143 / 94; Pulse 84; Resp 17; Temp 98.7; Pulse Ox 98% ; Weight 141.97 kg; ap3 MDM: 17:26 Patient medically screened. lobito 18:33 Differential diagnosis: impetigo, varicella, allergic reaction. Data reviewed: vital lobito signs, nurses notes. Consideration of Admission/Observation Escalation of care including admission/observation considered. I considered the following discharge prescriptions or medication management in the emergency department Medications were administered in the Emergency Department. See MAR. Test considered but Not performed: Labs: no labs. Historians other than the Patient: Daughter/Son: son, uninformed. Care significantly affected by the following chronic conditions: Diabetes, depression , cocaine in the past. Administered Medications: 18:39 Drug: diphenhydrAMINE IM 50 mg Route: IM; Site: right deltoid; ap3 18:51 Follow up: Response: No adverse reaction ap3 18:39 Drug: predniSONE PO 60 mg Route: PO; ap3 18:51 Follow up: Response: No adverse reaction ap3 18:39 Drug: Famotidine PO 40 mg Route: PO; ap3 18:51 Follow up: Response: No adverse reaction ap3 Disposition Summary: 11/03/22 18:36 Discharge Ordered Location: Home lobito Problem: new lobito Symptoms: have improved lobito Condition: Stable lobito Diagnosis - Irritant contact dermatitis due to detergents lobito - Allergic contact dermatitis, unspecified cause lobito - Dermatitis, unspecified lobito - Rash and other nonspecific skin eruption lobito Followup: lobito - With: Private Physician - When: 2 - 3 days - Reason: Recheck today's complaints, Continuance of care, Re-evaluation by your physician Discharge Instructions: - Discharge Summary Sheet lobito - Allergies, Adult lobito - Contact Dermatitis lobito - Hives lobito - Rash, Adult lobito - Rash, Adult, [id number] lobito - Contact Dermatitis, [id number] lobito - Allergy Skin Testing [facility] Forms: - Medication Reconciliation Form lobito - Thank You Letter lobito - Antibiotic Education lobito - Prescription Opioid Use lobito - Patient Portal Instructions lobito - Leadership Thank You Letter lobito - Work release form ap3 Prescriptions: - Benadryl 25 mg Oral Capsule - take 2 capsule by ORAL route every 6 hours As needed; 40 tablet; Refills: 0, [facility] Product Selection Permitted - Pepcid 20 mg Oral Tablet - take 1 tablet by ORAL route every 12 hours for 21 days; 42 tablet; Refills: 0, [facility] Product Selection Permitted - Prednisone 20 mg Oral Tablet - take 2 tablets by ORAL route once daily for 5 days; 10 tablet; Refills: 0, [facility] Product Selection Permitted Signatures: Cesar Hoyos MD MD cha Prokisch, Amanda RN RN ap3
[2022-11-03 19:11] VITALS: BP 143/94; TEMP 98.7; O2SAT 98
== END 2022-11-03 19:03 | disposition home or self-care (01) ==
LOC: ER 17:08
DX: L24.0 Irritant contact dermatitis due to detergents (principal)
CPT/HCPCS: J7512; J1200; 96372; 99284

== ENCOUNTER 2023-07-21 06:11 | Emergency (ER) | payer OTHER ==
[2023-07-21] MEDS ORDERED: DIPHENHYDRAMINE 50 MG/ML VIAL ONE (06:56)
[2023-07-21] MEDS ORDERED: NA CHLORIDE 0.9% 1,000 ML ONE (06:57)
[2023-07-21] MEDS ORDERED: METOCLOPRAMIDE 10 MG/2mL INJ ONE (06:57)
[2023-07-21] MEDS ORDERED: KETOROLAC 30 MG/ML INJ ONE (06:58)
[2023-07-21 07:19] LABS: Anion Gap 5.4 mEq/L (5.0-15.0); Potassium 4.4 mEq/L (3.5-5.1)
--- NOTE | 2023-07-21 07:31 | ER ---
Nurse's Notes [facility] Name: Tod Mcgovern II Age: 37 yrs Sex: Male : 1985 Arrival Date: 07/21/2023 Time: 06:11 Bed 2 Private MD: Diagnosis: Migraine without aura, not intractable Presentation: 07/20 06:31 Chief complaint: Patient states: I have been nauseous for the past 2 weeks and am jb4 concerned I may have H pylori. I also have a migraine that started at 1 am. Coronavirus screen: At this time, the client does not indicate any symptoms associated with coronavirus-19. Ebola Screen: No symptoms or risks identified at this time. Initial Sepsis Screen: Does the patient meet any 2 criteria? No. Patient's initial sepsis screen is negative. Does the patient have a suspected source of infection? No. Patient's initial sepsis screen is negative. Risk Assessment: Do you want to hurt yourself or someone else? Patient reports no desire to harm self or others. Onset of symptoms was July 21, 2023. Transition of care: patient was not received from another setting of care. 06:31 Method Of Arrival: Ambulatory jb4 06:31 Acuity: ESTEVAN 3 jb4 Triage Assessment: 06:44 Headache History: The patient has had previous headaches and this one is similar to rv previous episodes. General: Appears uncomfortable. General: Behavior is calm, cooperative. Pain: Pain Pain began Also complains of. Neuro:. Historical: - Allergies: 06:34 aloe vera (rash); jb4 - Home Meds: 06:34 Metformin Oral [Active]; jb4 - PMHx: 06:34 cocaine addict; recovered; depressive disorder; diabetes mellitus; Migraines; jb4 - Immunization history:: Adult Immunizations up to date. - Infectious Disease History:: Denies. - Social history:: Smoking status: Patient reports the use of cigarette tobacco products, 3 cigarettes per day., Reported history of juuling and/or vaping. - Family history:: not pertinent. Screenin:43 [facility] ED Fall Risk Assessment (Adult) History of falling in the last 3 months, rv including since admission No falls in past 3 months (0 pts) Score/Fall Risk Level 0 - 2 = Low Risk Oriented to surroundings, Maintained a safe environment, Educated pt \T\ family on fall prevention, incl call for assistance when getting out of bed, Assessed \T\ reinforced patient's understanding of fall precautions. Abuse screen: Denies threats or abuse. Denies injuries from another. Nutritional screening: No deficits noted. Tuberculosis screening: No symptoms or risk factors identified. Assessment: 06:43 General: Appears uncomfortable, Behavior is calm, cooperative. Pain: Complains of pain rv in HEAD. Neuro: Level of Consciousness is awake, alert, Oriented to person, place, time, situation, Reports headache. Cardiovascular: Capillary refill < 3 seconds Patient's skin is warm and dry. Respiratory: Airway is patent Respiratory effort is even, unlabored, Breath sounds are clear bilaterally. GI: No signs and/or symptoms were reported involving the gastrointestinal system. : No signs and/or symptoms were reported regarding the genitourinary system. Derm: Skin is intact. Vital Signs: 06:31 BP 144 / 102; Pulse 77; Resp 16; Pulse Ox 98% on R/A; Weight 148 kg (R); Height 5 ft. 8 jb4 in. (R); Pain 6/10; 07:53 BP 142 / 98; Pulse 72; Resp 16; Pulse Ox 97% on R/A; ko1 06:31 Body Mass Index 49.61 (148.00 kg, 172.72 cm) jb4 06:31 Pain Scale: Adult jb4 [place] Coma Score: 06:43 Eye Response: spontaneous(4). Motor Response: obeys commands(6). Verbal Response: rv oriented(5). Total: 15. 07:31 Eye Response: spontaneous(4). Motor Response: obeys commands(6). Verbal Response: sp4 oriented(5). Total: 15. 07:31 Eye Response: spontaneous(4). Motor Response: obeys commands(6). Verbal Response: sp4 oriented(5). Total: 15. ED Course: 06:15 Patient arrived in ED. gm2 06:29 Ismael Abdi MD is Attending Physician. sp4 06:34 Triage completed. jb4 06:34 Arm band placed on right wrist. jb4 06:42 Inserted saline lock: 20 gauge in left antecubital area, using aseptic technique. rv 06:44 Patient has correct armband on for positive identification. Client placed on continuous rv cardiac and pulse oximetry monitoring. NIBP monitoring applied. 06:44 No provider procedures requiring assistance completed. rv 07:51 Helena Ernst, RN is Primary Nurse. ko1 07:53 Provided Education on: na. ko1 07:53 IV discontinued, intact, bleeding controlled, No redness/swelling at site. Pressure ko1 dressing applied. Administered Medications: 07:05 Drug: metoCLOPramide IVP 10 mg IVP once; over 1 to 2 minutes Route: IVP; Site: left rv antecubital; 07:21 Follow up: Response: No adverse reaction ko1 07:05 Drug: diphenhydrAMINE IVP 50 mg IVP once Route: IVP; Site: left antecubital; rv 07:21 Follow up: Response: No adverse reaction ko1 07:06 Drug: NS 0.9% IV 1000 ml IV at 1 bolus Per protocol; 1000 mL bolus Route: IV; Rate: 1 rv bolus; Site: left antecubital; 07:51 Follow up: Response: No adverse reaction; IV Status: Completed infusion; IV Intake: ko1 1000ml 07:06 Drug: Ketorolac IVP 30 mg IVP once Route: IVP; Site: left antecubital; rv 07:21 Follow up: Response: No adverse reaction ko1 Medication: 06:43 VIS not applicable for this client. rv Intake: 07:51 IV: 1000ml; Total: 1000ml. ko1 Outcome: 07:30 Discharge ordered by . maco 07:55 Discharged to home ambulatory, ko1 07:55 Condition: stable 07:55 Discharge instructions given to patient, Instructed on discharge instructions, follow up and referral plans. medication usage, Demonstrated understanding of instructions, follow-up care, medications, Prescriptions given X 2, 07:56 Patient left the ED. ko1 Signatures: Efrem Ramos RN RN jb4 Vin Rojas RN RN rv Helena Ernst, RN RN ko1 Ismael Abdi MD MD sp4 Paula Fraga gm2
--- NOTE | 2023-07-21 07:31 | EDPHYS ---
Physician Documentation [facility] Name: Tod Mcgovern II Age: 37 yrs Sex: Male : 1985 Arrival Date: 07/21/2023 Time: 06:11 Bed 2 Private MD: ED Physician Ismael Abdi HPI: 07/20 06:29 This 37 yrs old Male presents to ER via Unassigned with complaints of sp4 Headache. 07:31 Patient presents with moderate to sever migraine onset at 1 AM. History of migraines. . sp4 Historical: - Allergies: 06:34 aloe vera (rash); jb4 - Home Meds: 06:34 Metformin Oral [Active]; jb4 - PMHx: 06:34 cocaine addict; recovered; depressive disorder; diabetes mellitus; Migraines; jb4 - Immunization history:: Adult Immunizations up to date. - Infectious Disease History:: Denies. - Social history:: Smoking status: Patient reports the use of cigarette tobacco products, 3 cigarettes per day., Reported history of juuling and/or vaping. - Family history:: not pertinent. ROS: 07:31 Constitutional: Negative for fever, chills, and weight loss, positive for acute sp4 headache 07:31 All other systems are negative, Exam: 07:31 Constitutional: This is a well developed, well nourished patient who is awake, alert, sp4 and in no acute distress. Head/Face: Normocephalic, atraumatic. Eyes: Pupils equal round and reactive to light, extra-ocular motions intact. Lids and lashes normal. Conjunctiva and sclera are not injected. Cornea within normal limits. Periorbital areas with no swelling, redness, or edema. ENT: Nares patent. No nasal discharge, no septal abnormalities noted. Tympanic membranes are normal and external auditory canals are clear. Oropharynx with no redness, swelling, or masses, exudates, or evidence of obstruction, uvula midline. Mucous membranes moist. Neck: Trachea midline, no thyromegaly or masses palpated, and no cervical lymphadenopathy. Supple, full range of motion without nuchal rigidity, or vertebral point tenderness. Chest/axilla: Normal chest wall appearance and motion. Nontender with no deformity. No lesions are appreciated. Cardiovascular: Regular rate and rhythm with a normal S1 and S2. No gallops, murmurs, or rubs. Normal PMI, no JVD. No pulse deficits. Respiratory: Lungs have equal breath sounds bilaterally, clear to auscultation and percussion. No rales, rhonchi or wheezes noted. No increased work of breathing, no retractions or nasal flaring. Abdomen/GI: Soft, with normal bowel sounds. No distension or tympany. No guarding or rebound. No evidence of tenderness throughout. Back: No spinal tenderness. No costovertebral tenderness. Skin: Warm, dry with normal turgor. Normal color with no rashes, no lesions, and no evidence of cellulitis. MS/ Extremity: Pulses equal, no cyanosis. Neurovascular intact. Full, normal range of motion. Neuro: Awake and alert, GCS 15, oriented to person, place, time, and situation. Cranial nerves II-XII grossly intact. Motor strength 5/5 in all extremities. Sensory grossly intact. Psych: Awake, alert, with orientation to person, place and time. Behavior, mood, and affect are within normal limits Vital Signs: 06:31 BP 144 / 102; Pulse 77; Resp 16; Pulse Ox 98% on R/A; Weight 148 kg (R); Height 5 ft. 8 jb4 in. (R); Pain 6/10; 07:53 BP 142 / 98; Pulse 72; Resp 16; Pulse Ox 97% on R/A; ko1 06:31 Body Mass Index 49.61 (148.00 kg, 172.72 cm) jb4 06:31 Pain Scale: Adult jb4 [place] Coma Score: 06:43 Eye Response: spontaneous(4). Motor Response: obeys commands(6). Verbal Response: rv oriented(5). Total: 15. 07:31 Eye Response: spontaneous(4). Motor Response: obeys commands(6). Verbal Response: sp4 oriented(5). Total: 15. 07:31 Eye Response: spontaneous(4). Motor Response: obeys commands(6). Verbal Response: sp4 oriented(5). Total: 15. MDM: 06:50 Patient medically screened. sp4 07:31 Differential diagnosis: migraine, neoplasm, sinusitis, uremia. Data reviewed: vital sp4 signs, nurses notes. ED course: pain improved . ED course: Patient stable for discharge home. . 07/20 06:50 Order name: [facility]; Complete Time: 07:24 sp4 Administered Medications: 07:05 Drug: metoCLOPramide IVP 10 mg IVP once; over 1 to 2 minutes Route: IVP; Site: left rv antecubital; 07:21 Follow up: Response: No adverse reaction ko1 07:05 Drug: diphenhydrAMINE IVP 50 mg IVP once Route: IVP; Site: left antecubital; rv 07:21 Follow up: Response: No adverse reaction ko1 07:06 Drug: NS 0.9% IV 1000 ml IV at 1 bolus Per protocol; 1000 mL bolus Route: IV; Rate: 1 rv bolus; Site: left antecubital; 07:51 Follow up: Response: No adverse reaction; IV Status: Completed infusion; IV Intake: ko1 1000ml 07:06 Drug: Ketorolac IVP 30 mg IVP once Route: IVP; Site: left antecubital; rv 07:21 Follow up: Response: No adverse reaction ko1 Disposition Summary: 07/21/23 07:30 Discharge Ordered Notes: Location: Home sp4 Problem: new sp4 Symptoms: have improved sp4 Condition: Stable sp4 Diagnosis - Migraine without aura, not intractable sp4 Followup: sp4 - With: Private Physician - When: 7 - 10 days - Reason: Recheck today's complaints Discharge Instructions: - Discharge Summary Sheet sp4 - Migraine Headache, [id number] sp4 Forms: - Work release form ld1 - Patient Portal Instructions sp4 Prescriptions: - ketorolac 10 mg Oral tablet - take 1 tablet ORAL route every 8 hours PRN migraine; 30 tablet; Refills: 0, sp4 Product Selection Permitted Signatures: Dispatcher [employer] EDEfrem Painter RN RN jb4 Vin Rojas RN RN rv Ismael Abdi MD MD sp4 Helena Ernst RN ko1
[2023-07-21 08:13] VITALS: BP 142/98; O2SAT 97
== END 2023-07-21 07:56 | disposition home or self-care (01) ==
LOC: ER 06:11
DX: G43.009 Migraine without aura, not intractable, without status migrainosus (principal); F17.210 Nicotine dependence, cigarettes, uncomplicated; Z91.048 Other nonmedicinal substance allergy status
CPT/HCPCS: 96361; 80048; 36415; 96375; 96374; 99284; J2765; J1200; J7030

== ENCOUNTER 2023-09-03 20:53 | Emergency (ER) | payer OTHER ==
[2023-09-03] MEDS ORDERED: KETOROLAC 30 MG/ML INJ ONE (21:36)
[2023-09-03] MEDS ORDERED: DIPHENHYDRAMINE 50 MG/ML VIAL ONE (21:36)
[2023-09-03] MEDS ORDERED: METOCLOPRAMIDE 10 MG/2mL INJ ONE (21:36)
[2023-09-03 21:57] LABS: Absolute Basophils 0.1 K/uL (0-0.5); Absolute Eosinophils 0.2 K/uL (0-0.5); Absolute Lymphocytes (CBC) 3.1 K/uL (0.7-4.9); Absolute Monocytes 0.6 K/uL (0.1-1.3); Absolute Neutrophil 7.1 K/uL (1.8-8.0); Basophils % 0.8 % (0-1.3); Hematocrit 48.4 % (39.6-49.0); Hemoglobin 16.3 g/dL (13.6-17.9); Lymphocytes % 28.3 % (15.3-44.8); MCH 29.5 pg (27.0-35.0); MCHC 33.8 g/dL (32.0-36.0); MCV 87.3 fL (80-100); MPV 7.9 fL (7.6-11.3); Monocytes % 5.1 % (3.3-12.3); Neutrophils % 63.8 % (41.7-73.7); Nucleated Red Blood Cells % 0.1 % (0-0); Platelets 328 thou/uL (152-406); RBC Red Blood Cell Count 5.54 M/uL (4.33-5.43); Red Cell Distribution Width 13.5 % (12.1-15.2)
[2023-09-03 22:15] LABS: Albumin 4.3 g/dL (3.4-5.0); Albumin/Globulin Ratio 1.2 (1.1-1.8); Anion Gap 8.9 mEq/L (5.0-15.0); Bilirubin Total 0.8 mg/dL (0.2-1.0); Globulin 3.7 g/dL (2.3-3.5); Potassium 3.9 mEq/L (3.5-5.1)
--- NOTE | 2023-09-03 22:40 | EDPHYS ---
Physician Documentation [facility] Name: Tod Mcgovern II Age: 37 yrs Sex: Male : 1985 Arrival Date: 09/03/2023 Time: 20:53 Bed 12 Private MD: ED Physician Jay Arreguin HPI: 09/02 21:47 This 37 yrs old Male presents to ER via Ambulatory with complaints of Migraine. sp3 21:47 37-year-old male with history of migraine headaches, recovering cocaine addict, sp3 depression presents to the ED for recurrent migraine that did not go away with a standard routine which is hot baths. Pain is consistent with standard migraine pattern and patient does not state he had sudden onset of headache or thunderclap event or any other symptoms. He denies any recurrent drug use. No other symptoms including neck pain, neck stiffness, fever, URI symptoms, chest pain, back pain, shortness of breath, abdominal pain, vomiting, diarrhea, rash, syncope, near syncope, or any other signs or symptoms on ROS at this time.. Historical: - Allergies: 21:12 aloe vera (rash); as6 - PMHx: 21:12 depressive disorder; cocaine addict; recovered; diabetes mellitus; Migraines; as6 - PSHx: 21:12 None; as6 - Immunization history:: Adult Immunizations up to date. - Infectious Disease History:: Denies. - Social history:: Smoking status: Patient reports the use of cigarette tobacco products, smokes one-half pack cigarettes per day, Reported history of juuling and/or vaping. ROS: 21:47 Constitutional: Negative for fever, chills, and weight loss, Eyes: Negative for injury, sp3 pain, redness, and discharge, Neck: Negative for injury, pain, and swelling, Cardiovascular: Negative for chest pain, palpitations, and edema, Respiratory: Negative for shortness of breath, cough, wheezing, and pleuritic chest pain, Abdomen/GI: Negative for abdominal pain, nausea, vomiting, diarrhea, and constipation, Back: Negative for injury and pain, MS/Extremity: Negative for injury and deformity, Skin: Negative for injury, rash, and discoloration, Psych: Negative for depression, anxiety, suicide ideation, homicidal ideation, and hallucinations, Allergy/Immunology: Negative for hives, rash, and allergies, Endocrine: Negative for neck swelling, polydipsia, polyuria, polyphagia, and marked weight changes, Hematologic/Lymphatic: Negative for swollen nodes, abnormal bleeding, and unusual bruising, 21:47 All other systems are negative, Exam: 21:48 Constitutional: This is a well developed, well nourished patient who is awake, alert, sp3 and in no acute distress. Head/Face: Normocephalic, atraumatic. Eyes: Pupils equal round and reactive to light, extra-ocular motions intact. Lids and lashes normal. Conjunctiva and sclera are non-icteric and not injected. Cornea within normal limits. Periorbital areas with no swelling, redness, or edema. ENT: Nares patent. No nasal discharge, no septal abnormalities noted. External auditory canals are clear. Oropharynx with no redness, swelling, or masses, exudates, or evidence of obstruction, uvula midline. Mucous membranes moist. Neck: Trachea midline, no thyromegaly or masses palpated, and no cervical lymphadenopathy. Supple, full range of motion without nuchal rigidity, or vertebral point tenderness. No Meningismus. Chest/axilla: Normal chest wall appearance and motion. Nontender with no deformity. No lesions are appreciated. Cardiovascular: Regular rate and rhythm with a normal S1 and S2. No gallops, murmurs, or rubs. Normal PMI, no JVD. No pulse deficits. Respiratory: Lungs have equal breath sounds bilaterally, clear to auscultation and percussion. No rales, rhonchi or wheezes noted. No increased work of breathing, no retractions or nasal flaring. Abdomen/GI: Soft, non-tender, with normal bowel sounds. No distension or tympany. No guarding or rebound. No evidence of tenderness throughout. Back: No spinal tenderness. No costovertebral tenderness. Full range of motion. Skin: Warm, dry with normal turgor. Normal color with no rashes, no lesions, and no evidence of cellulitis. MS/ Extremity: Pulses equal, no cyanosis. Neurovascular intact. Full, normal range of motion. Neuro: Awake and alert, GCS 15, oriented to person, place, time, and situation. Cranial nerves II-XII grossly intact. Motor strength 5/5 in all extremities. Sensory grossly intact. Cerebellar exam normal. Normal gait. Psych: Awake, alert, with orientation to person, place and time. Behavior, mood, and affect are within normal limits. Vital Signs: 21:11 BP 139 / 76; Pulse 90; Resp 18 S; Temp 97.5(TE); Pulse Ox 98% on R/A; Weight 149.69 kg; as6 Height 5 ft. 9 in. ; Pain 5/10; 22:51 BP 126 / 70; Pulse 66; Resp 16; Pulse Ox 96% ; as6 21:11 Body Mass Index 48.73 (149.69 kg, 175.26 cm) as6 21:11 Pain Scale: Adult as6 MDM: 21:17 Patient medically screened. sp3 21:48 Data reviewed: vital signs, nurses notes, old medical records, lab test result(s). ED sp3 course: 37-year-old male with headache. Differential diagnosis includes migraine headache, tension headache, electrolyte abnormality, among others. I am not highly suspicious for intracranial hemorrhage, CVA/TIA spectrum, vascular pathology including dissection and/or aneurysm of any cerebral or vertebral artery, hypertensive urgency, sepsis, shock, meningitis, any other critical process at this time. Workup will include send laboratory values and treatment will include Reglan, Benadryl and ketorolac IV. Patient states he does not want any narcotic medications due to his addiction history.. 22:39 ED course: Patient feeling significantly better. We will safely discharge him home at sp3 this time.. 09/02 21:28 Order name: CBC with Diff; Complete Time: 22:17 sp3 09/02 21:28 Order name: CMP; Complete Time: 22:17 sp3 09/02 21:28 Order name: IV Saline Lock; Complete Time: 21:48 sp3 09/02 21:28 Order name: Labs collected and sent; Complete Time: 21:48 sp3 Administered Medications: 21:47 Drug: metoCLOPramide IVP 10 mg IVP once; over 1 to 2 minutes Route: IVP; Site: left as6 antecubital; 22:50 Follow up: Response: No adverse reaction as6 21:47 Drug: diphenhydrAMINE IVP 12.5 mg IVP once Route: IVP; Site: left antecubital; as6 22:50 Follow up: Response: No adverse reaction as6 21:47 Drug: Ketorolac IVP 30 mg IVP once Route: IVP; Site: left antecubital; as6 22:50 Follow up: Response: No adverse reaction as6 Disposition Summary: 09/03/23 22:39 Discharge Ordered Notes: Location: Home sp3 Condition: Stable sp3 Diagnosis - Migraine headache sp3 Followup: sp3 - With: Private Physician - When: Upon discharge from the Emergency Department - Reason: Continuance of care Discharge Instructions: - Discharge Summary Sheet sp3 - Migraine Headache sp3 Forms: - Work release form ss - Medication Reconciliation Form sp3 - Antibiotic Education sp3 - Prescription Opioid Use sp3 - Patient Portal Instructions sp3 - Leadership Thank You Letter sp3 Prescriptions: - Reglan 10 mg Oral Tablet - take 1 tablet ORAL route every 6 hours take 30 minutes before meals and at sp3 bedtime; 20 tablet; Refills: 0, Product Selection Permitted Signatures: Dispatcher [employer] Jay Ambrocio MD MD sp3 Maxime Tejada RN RN as6
--- NOTE | 2023-09-03 22:40 | ER ---
Nurse's Notes [facility] Name: Tod Mcgovern II Age: 37 yrs Sex: Male : 1985 Arrival Date: 09/03/2023 Time: 20:53 Bed 12 Private MD: Diagnosis: Migraine headache Presentation: 09/02 21:11 Chief complaint: Patient states: migraine that started today. Coronavirus screen: At as6 this time, the client does not indicate any symptoms associated with coronavirus-19. Ebola Screen: No symptoms or risks identified at this time. Initial Sepsis Screen: Does the patient meet any 2 criteria? No. Patient's initial sepsis screen is negative. Does the patient have a suspected source of infection? No. Patient's initial sepsis screen is negative. Risk Assessment: Do you want to hurt yourself or someone else? Patient reports no desire to harm self or others. Onset of symptoms was September 03, 2023. 21:11 Method Of Arrival: Ambulatory as6 21:11 Acuity: ESTEVAN 4 as6 Triage Assessment: 21:13 General: Appears in no apparent distress. Behavior is calm, cooperative. Pain: as6 Complains of pain in head. 21:14 Neuro: Reports headache. as6 Historical: - Allergies: 21:12 aloe vera (rash); as6 - PMHx: 21:12 depressive disorder; cocaine addict; recovered; diabetes mellitus; Migraines; as6 - PSHx: 21:12 None; as6 - Immunization history:: Adult Immunizations up to date. - Infectious Disease History:: Denies. - Social history:: Smoking status: Patient reports the use of cigarette tobacco products, smokes one-half pack cigarettes per day, Reported history of juuling and/or vaping. Screenin:16 [facility] ED Fall Risk Assessment (Adult) History of falling in the last 3 months, as6 including since admission No falls in past 3 months (0 pts) Confusion or Disorientation No (0 pts) Intoxicated or Sedated No (0 pts) Impaired Gait No (0 pts) Mobility Assist Device Used No (0 pt) Altered Elimination No (0 pt) Score/Fall Risk Level 0 - 2 = Low Risk Oriented to surroundings, Maintained a safe environment, Educated pt \T\ family on fall prevention, incl call for assistance when getting out of bed, Assessed \T\ reinforced patient's understanding of fall precautions. Abuse screen: Denies threats or abuse. Denies injuries from another. Nutritional screening: No deficits noted. Tuberculosis screening: No symptoms or risk factors identified. Assessment: 22:51 Reassessment: Patient appears in no apparent distress at this time. Patient and/or as6 family updated on plan of care and expected duration. Pain level reassessed. Patient is alert, oriented x 3, equal unlabored respirations, skin warm/dry/pink. Patient states feeling better. Patient states symptoms have improved. Vital Signs: 21:11 BP 139 / 76; Pulse 90; Resp 18 S; Temp 97.5(TE); Pulse Ox 98% on R/A; Weight 149.69 kg; as6 Height 5 ft. 9 in. ; Pain 5/10; 22:51 BP 126 / 70; Pulse 66; Resp 16; Pulse Ox 96% ; as6 21:11 Body Mass Index 48.73 (149.69 kg, 175.26 cm) as6 21:11 Pain Scale: Adult as6 ED Course: 20:55 Patient arrived in ED. ra3 20:57 Jay Arreguin MD is Attending Physician. sp3 21:12 Triage completed. as6 21:13 Arm band placed on right wrist. as6 21:14 Maxime Tejada, PAWEL is Primary Nurse. as6 21:17 Bed in low position. Call light in reach. as6 21:42 Provided Education on: medications . as6 21:45 Inserted saline lock: 20 gauge in left antecubital area, using aseptic technique. Blood oe collected. 22:51 No provider procedures requiring assistance completed. IV discontinued, intact, as6 bleeding controlled, No redness/swelling at site. Pressure dressing applied. Administered Medications: 21:47 Drug: metoCLOPramide IVP 10 mg IVP once; over 1 to 2 minutes Route: IVP; Site: left as6 antecubital; 22:50 Follow up: Response: No adverse reaction as6 21:47 Drug: diphenhydrAMINE IVP 12.5 mg IVP once Route: IVP; Site: left antecubital; as6 22:50 Follow up: Response: No adverse reaction as6 21:47 Drug: Ketorolac IVP 30 mg IVP once Route: IVP; Site: left antecubital; as6 22:50 Follow up: Response: No adverse reaction as6 Medication: 21:17 VIS not applicable for this client. as6 Outcome: 22:39 Discharge ordered by . sp3 22:50 Discharged to home ambulatory, with family, as6 22:50 Condition: stable 22:50 Discharge instructions given to patient, Instructed on discharge instructions, follow up and referral plans. medication usage, Demonstrated understanding of instructions, follow-up care, medications, Prescriptions given X 1, 22:51 Patient left the ED. as6 Signatures: Sushant Andrews Setul, MD MD sp3 Maxime Tejada, RN RN as6 Tea Phillips 3
[2023-09-03 23:22] VITALS: BP 126/70; TEMP 97.5; O2SAT 96
== END 2023-09-03 22:51 | disposition home or self-care (01) ==
LOC: ER 20:53
DX: G43.909 Migraine, unspecified, not intractable, without status migrainosus (principal); F17.210 Nicotine dependence, cigarettes, uncomplicated
CPT/HCPCS: 85025; 36415; 80053; J2765; J1200; 96374; 96375; 99284

== ENCOUNTER 2023-10-13 08:00 | Emergency (ER) | payer OTHER, SELFPAY ==
[2023-10-13] MEDS ORDERED: ONDANSETRON 4 MG/2 ML VIAL ONE (08:22)
[2023-10-13] MEDS ORDERED: NA CHLORIDE 0.9% 1,000 ML ONE (08:22)
[2023-10-13 08:47] LABS: Absolute Basophils 0.1 K/uL (0-0.5); Absolute Eosinophils 0.2 K/uL (0-0.5); Absolute Lymphocytes (CBC) 2.3 K/uL (0.7-4.9); Absolute Monocytes 0.5 K/uL (0.1-1.3); Absolute Neutrophil 5.3 K/uL (1.8-8.0); Basophils % 0.8 % (0-1.3); Eosinophils % 2.1 % (0-4.4); Hematocrit 44.6 % (39.6-49.0); Hemoglobin 15.4 g/dL (13.6-17.9); Lymphocytes % 27.2 % (15.3-44.8); MCH 30.2 pg (27.0-35.0); MCHC 34.6 g/dL (32.0-36.0); MCV 87.3 fL (80-100); Monocytes % 6.4 % (3.3-12.3); Neutrophils % 63.5 % (41.7-73.7); Nucleated Red Blood Cells % 0.2 % (0-0); Platelets 313 thou/uL (152-406); RBC Red Blood Cell Count 5.11 M/uL (4.33-5.43); Red Cell Distribution Width 13.2 % (12.1-15.2)
[2023-10-13 09:04] LABS: Albumin 3.9 g/dL (3.4-5.0); Albumin/Globulin Ratio 1.3 (1.1-1.8); Anion Gap 7.2 mEq/L (5.0-15.0); Bilirubin Total 0.7 mg/dL (0.2-1.0); Globulin 3.1 g/dL (2.3-3.5); Potassium 4.2 mEq/L (3.5-5.1)
--- NOTE | 2023-10-13 09:29 | EDPHYS ---
Physician Documentation [facility] Name: Tod Mcgovern II Age: 37 yrs Sex: Male : 1985 Arrival Date: 10/13/2023 Time: 08:00 Bed 17 Private MD: None, None ED Physician Paxton Watson HPI: 10/12 08:05 This 37 yrs old Male presents to ER via Unassigned with complaints of Nausea/Vomiting. kb 08:05 Pt is a 37 year old male who presents for nausea and vomiting that started yesterday. kb Denies diarrhea, fever. States he has had upper abd pain when vomiting. Denies sick contacts. . Historical: - Allergies: 08:07 aloe vera (rash); ll1 - PMHx: 08:07 cocaine addict; recovered; depressive disorder; diabetes mellitus; Migraines; ll1 - Immunization history:: Adult Immunizations up to date. - Infectious Disease History:: Denies. - Social history:: Smoking status: Patient denies any tobacco usage or history of. ROS: 08:05 Constitutional: As per HPI kb Exam: 09:05 Constitutional: This is a well developed, well nourished patient who is awake, alert, kb and in no acute distress. Head/Face: Normocephalic, atraumatic. ENT: Moist Mucous membranes Cardiovascular: Regular rate Respiratory: Respirations even and unlabored. No increased work of breathing. Talking in full sentences Abdomen/GI: Soft, non-tender. No distention Skin: Warm, dry with normal turgor. Normal color. MS/ Extremity: Pulses equal, no cyanosis. Neurovascular intact. Full, normal range of motion. Neuro: Awake and alert, GCS 15, oriented to person, place, time, and situation. Moves all extremities. Normal gait. Vital Signs: 08:07 BP 136 / 78; Pulse 62; Resp 17; Temp 97.4; Pulse Ox 98% on R/A; Weight 142.88 kg; ll1 Height 5 ft. 9 in. ; Pain 4/10; 09:47 BP 128 / 74; Pulse 64; Resp 16; Pulse Ox 99% ; ko1 08:07 Body Mass Index 46.52 (142.88 kg, 175.26 cm) ll1 08:07 Pain Scale: Adult ll1 MDM: 08:02 Patient medically screened. kb 09:05 Differential diagnosis: viral gastroenteritis, Dehydration, abnormal electrolytes. Data kb reviewed: vital signs, nurses notes. Test considered but Not performed: CT: CT considered but pt is well appearing, afebrile, and has no abd tenderness upon exam. Counseling: I had a detailed discussion with the patient and/or guardian regarding the historical points, exam findings, and any diagnostic results supporting the discharge/admit diagnosis, lab results, the need for outpatient follow up, a family practitioner, to return to the emergency department if symptoms worsen or persist or if there are any questions or concerns that arise at home. ED course: Patient is a 37-year-old male who presents for nausea and vomiting that started yesterday. Patient is well-appearing on exam with no abdominal tenderness and reassuring vital signs. Serum labs ordered and reviewed, reassuring. Patient tolerating p.o. intake and feeling better after zofran and IVF. Stable for discharge home. 10/12 08:07 Order name: CBC with Diff; Complete Time: 08:53 kb 10/12 08:07 Order name: CMP; Complete Time: 09:05 kb 10/12 08:07 Order name: Lipase; Complete Time: 09:05 kb 10/12 08:07 Order name: IV Saline Lock; Complete Time: 08:39 kb 10/12 08:07 Order name: Labs collected and sent; Complete Time: 08:39 kb Administered Medications: 08:39 Drug: NS 0.9% IV 1000 ml IV at 1 bolus Per protocol; 1000 mL bolus Route: IV; Rate: 1 ko1 bolus; Site: left antecubital; 09:47 Follow up: Response: No adverse reaction; IV Status: Completed infusion; IV Intake: ko1 1000ml 08:39 Drug: Ondansetron IVP 4 mg IVP once; over 2 minutes Route: IVP; Site: left antecubital; ko1 08:58 Follow up: Response: No adverse reaction ko1 Disposition Summary: 10/13/23 09:27 Discharge Ordered Notes: Location: Home kb Condition: Stable kb Diagnosis - Nausea with vomiting, unspecified kb Followup: kb - With: Emergency Department - When: As needed - Reason: Worsening of condition Followup: kb - With: Private Physician - When: 2 - 3 days - Reason: Recheck today's complaints, Continuance of care, Re-evaluation by your physician Discharge Instructions: - Discharge Summary Sheet kb - Nausea and Vomiting, Adult, [id number] kb Forms: - Work release form kb - Medication Reconciliation Form kb - Antibiotic Education kb - Prescription Opioid Use kb - Patient Portal Instructions kb - Leadership Thank You Letter kb Prescriptions: - Zofran 4 mg Oral tablet - take 1 tablet ORAL route every 6 hours As needed; 12 tablet; Refills: 0, kb Product Selection Permitted Signatures: Dispatcher [employer] EDMS Maggy Maher FNP-Toño Hernandez, RN RN ll1 Helena Ernst, RN RN ko1 Corrections: (The following items were deleted from the chart) 08:07 08:07 CBC+H.LAB.BRZ ordered. EDMS EDMS 08:07 08:07 COMPREHENSIVE METABOLIC PANEL+C.LAB.BRZ ordered. EDMS EDMS 08:07 08:07 LIPASE+C.LAB.BRZ ordered. EDMS EDMS
--- NOTE | 2023-10-13 09:29 | ER ---
Nurse's Notes [facility] Name: Tod Mcgovern II Age: 37 yrs Sex: Male : 1985 Arrival Date: 10/13/2023 Time: 08:00 Bed 17 Private MD: None, None Diagnosis: Nausea with vomiting, unspecified Presentation: 10/12 08:07 Chief complaint: Patient states: N/V with abdominal pain for 2 days. Coronavirus ll1 screen: Client denies travel out of the [place] in the last 14 days. At this time, the client does not indicate any symptoms associated with coronavirus-19. Ebola Screen: Patient denies travel to an Ebola-affected area in the 21 days before illness onset. Initial Sepsis Screen: Does the patient meet any 2 criteria? No. Patient's initial sepsis screen is negative. Does the patient have a suspected source of infection? No. Patient's initial sepsis screen is negative. Risk Assessment: Do you want to hurt yourself or someone else? Patient reports no desire to harm self or others. Onset of symptoms was October 12, 2023. 08:07 Method Of Arrival: Ambulatory ll1 08:07 Acuity: ESTEVAN 3 ll1 Historical: - Allergies: 08:07 aloe vera (rash); ll1 - PMHx: 08:07 cocaine addict; recovered; depressive disorder; diabetes mellitus; Migraines; ll1 - Immunization history:: Adult Immunizations up to date. - Infectious Disease History:: Denies. - Social history:: Smoking status: Patient denies any tobacco usage or history of. Screenin:42 [facility] ED Fall Risk Assessment (Adult) History of falling in the last 3 months, ko1 including since admission No falls in past 3 months (0 pts) Confusion or Disorientation No (0 pts) Intoxicated or Sedated No (0 pts) Impaired Gait No (0 pts) Mobility Assist Device Used No (0 pt) Altered Elimination No (0 pt) Score/Fall Risk Level 0 - 2 = Low Risk Oriented to surroundings, Maintained a safe environment, Educated pt \T\ family on fall prevention, incl call for assistance when getting out of bed, Assessed \T\ reinforced patient's understanding of fall precautions, Hourly rounding (assess needs \T\ fall precautionary measures) done. Abuse screen: Denies threats or abuse. Denies injuries from another. Nutritional screening: No deficits noted. Tuberculosis screening: No symptoms or risk factors identified. Assessment: 08:42 General: Appears in no apparent distress. Behavior is calm, cooperative, appropriate ko1 for age. Pain: Complains of pain in abdomen. Neuro: No deficits noted. Cardiovascular: No deficits noted. Respiratory: No deficits noted. GI: Abdomen is round non-distended, obese, Reports nausea, vomiting. : No deficits noted. EENT: No deficits noted. Derm: No deficits noted. Musculoskeletal: No deficits noted. Vital Signs: 08:07 BP 136 / 78; Pulse 62; Resp 17; Temp 97.4; Pulse Ox 98% on R/A; Weight 142.88 kg; ll1 Height 5 ft. 9 in. ; Pain 4/10; 09:47 BP 128 / 74; Pulse 64; Resp 16; Pulse Ox 99% ; ko1 08:07 Body Mass Index 46.52 (142.88 kg, 175.26 cm) ll1 08:07 Pain Scale: Adult ll1 ED Course: 08:02 Patient arrived in ED. mr 08:02 None, None is Private Physician. mr 08:02 Maggy Maher, [facility]. kb 08:02 Paxton Watson MD is Attending Physician. kb 08:09 Triage completed. ll1 08:09 Arm band placed on. ll1 08:26 FABIAN REARDON, RN is Primary Nurse. dd2 08:35 Initial lab(s) drawn, by tn, sent to lab. Inserted saline lock: 20 gauge in left ko1 antecubital area, using aseptic technique. Blood collected. Flushed with 10 mL NS. 08:39 CBC with Diff Sent. ko1 08:39 CMP Sent. ko1 08:39 Lipase Sent. ko1 08:41 Patient has correct armband on for positive identification. Bed in low position. Call ko1 light in reach. Side rails up X 1. Provided Education on: call light, labs, meds. Pulse ox on. NIBP on. Door closed. Noise minimized. Lights dimmed. Warm blanket given. Pillow given. 08:41 No provider procedures requiring assistance completed. ko1 09:47 IV discontinued, intact, bleeding controlled, No redness/swelling at site. Pressure ko1 dressing applied. Administered Medications: 08:39 Drug: NS 0.9% IV 1000 ml IV at 1 bolus Per protocol; 1000 mL bolus Route: IV; Rate: 1 ko1 bolus; Site: left antecubital; 09:47 Follow up: Response: No adverse reaction; IV Status: Completed infusion; IV Intake: ko1 1000ml 08:39 Drug: Ondansetron IVP 4 mg IVP once; over 2 minutes Route: IVP; Site: left antecubital; ko1 08:58 Follow up: Response: No adverse reaction ko1 Medication: 08:42 VIS not applicable for this client. ko1 Intake: 09:47 IV: 1000ml; Total: 1000ml. ko1 Outcome: 09:27 Discharge ordered by MD. porras 09:47 Discharged to home ambulatory, ko1 09:47 Condition: improved 09:47 Discharge instructions given to patient, Instructed on discharge instructions, follow up and referral plans. medication usage, Demonstrated understanding of instructions, follow-up care, medications, Prescriptions given X 1, 09:49 Patient left the ED. ko1 Signatures: Maggy Maher, JEWISH THOUGHT PROFESSOR-C JEWISH THOUGHT PROFESSOR-Marija Bower, Reg Reg mr Toño Rodriguez, RN RN ll1 Helena Ernst, RN RN ko1 FABIAN REARDON RN RN dd2
[2023-10-13 11:24] VITALS: TEMP 97.4
[2023-10-13 11:29] VITALS: BP 128/74; O2SAT 99
== END 2023-10-13 09:49 | disposition home or self-care (01) ==
LOC: ER 08:00
DX: R11.2 Nausea with vomiting, unspecified (principal)
CPT/HCPCS: 36415; 80053; 83690; 85025; 96361; 96374; 99284; J2405; J7030

== ENCOUNTER 2023-12-18 05:51 | Emergency (ER) | payer SELFPAY ==
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
[2023-12-18] MEDS ORDERED: SILVER SULFADIAZINE 1% 25 GM TOP ONE (06:25)
[2023-12-18 07:08] VITALS: BP 132/86; TEMP 98.2; O2SAT 99
== END 2023-12-18 06:40 | disposition home or self-care (01) ==
LOC: ER 05:51
DX: T24.231A Burn of second degree of right lower leg, initial encounter (principal); T24.631A Corrosion of second degree of right lower leg, initial encounter
CPT/HCPCS: 99284

== ENCOUNTER 2024-01-07 04:34 | Emergency (ER) | payer SELFPAY ==
[2024-01-07] MEDS ORDERED: KETOROLAC 30 MG/ML INJ ONE (04:54)
[2024-01-07] MEDS ORDERED: ONDANSETRON 4 MG/2 ML VIAL ONE (04:54)
[2024-01-07] MEDS ORDERED: NA CHLORIDE 0.9% 1,000 ML ONE (04:54)
[2024-01-07 05:16] LABS: Absolute Basophils 0.1 K/uL (0-0.5); Absolute Eosinophils 0.2 K/uL (0-0.5); Absolute Lymphocytes (CBC) 2.6 K/uL (0.7-4.9); Absolute Monocytes 0.6 K/uL (0.1-1.3); Absolute Neutrophil 4.3 K/uL (1.8-8.0); Eosinophils % 2.6 % (0-4.4); Hematocrit 48.1 % (39.6-49.0); Hemoglobin 16.5 g/dL (13.6-17.9); Lymphocytes % 33.2 % (15.3-44.8); MCH 30.2 pg (27.0-35.0); MCHC 34.4 g/dL (32.0-36.0); MCV 87.9 fL (80-100); Monocytes % 7.9 % (3.3-12.3); Neutrophils % 55.3 % (41.7-73.7); Nucleated Red Blood Cells % 0.2 % (0-0); Platelets 303 thou/uL (152-406); RBC Red Blood Cell Count 5.47 M/uL (4.33-5.43); Red Cell Distribution Width 13.6 % (12.1-15.2)
[2024-01-07 05:29] LABS: Albumin 4.1 g/dL (3.4-5.0); Albumin/Globulin Ratio 1.2 (1.1-1.8); Anion Gap 6.9 mEq/L (5.0-15.0); Bilirubin Total 0.6 mg/dL (0.2-1.0); Globulin 3.5 g/dL (2.3-3.5); Potassium 3.9 mEq/L (3.5-5.1); Protein, Total 7.6 g/dL (6.4-8.2)
--- NOTE | 2024-01-07 05:56 | EDPHYS ---
Physician Documentation [facility] Name: Tod Mcgovern II Age: 38 yrs Sex: Male : 1985 Arrival Date: 01/07/2024 Time: 04:34 Bed 5 Private MD: ED Physician Paxton Watson HPI: 01/06 04:52 This 38 yrs old Male presents to ER via Unassigned with complaints of ec2 Abdominal Pain, Diarrhea. 04:52 Patient arrives today for evaluation of nausea, diarrhea. Patient reports that he been ec2 having 1 day of symptoms. Reports some upper abdominal discomfort. Reports nausea without vomiting. Reports multiple bouts of loose stools. Patient reports otherwise no previous abdominal surgeries, history of diabetes however is not on medications. Denies urinary complaints. No fevers or chills. Historical: - Allergies: 04:54 aloe vera (rash); vc1 - PMHx: 04:54 cocaine addict; recovered; depressive disorder; diabetes mellitus; Migraines; vc1 - PSHx: 04:54 None; vc1 - Immunization history:: Client reports receiving the 2nd dose of the Covid vaccine. - Infectious Disease History:: Denies. - Social history:: Smoking status: Patient denies any tobacco usage or history of. ROS: 04:52 Constitutional: as per hpi ec2 Exam: 04:52 Constitutional: GEN: NAD Head: atraumatic Eyes: EOMI Ears: External ears are ec2 normal. CV: regular rate LUNGS: no respiratory distress ABD: non-distended, soft, nontender, not guarding, not rigid SKIN: no evidence of rashes MSK: no evidence of trauma Vital Signs: 04:49 BP 132 / 83; Pulse 67; Resp 16; Temp 99.3; Pulse Ox 100% ; Weight 135.62 kg; Height 5 vc1 ft. 10 in. ; Pain 4/10; 05:30 BP 129 / 71; Pulse 64; Resp 17; Temp 98.7; Pulse Ox 100% ; dd2 06:01 BP 125 / 74; Pulse 65; Resp 17; Temp 98.7; Pulse Ox 100% ; Pain 3/10; bm8 04:49 Body Mass Index 42.90 (135.62 kg, 177.8 cm) vc1 04:49 Pain Scale: Adult vc1 06:01 Pain Scale: Adult bm8 Jimmie Coma Score: 05:00 Eye Response: spontaneous(4). Motor Response: obeys commands(6). Verbal Response: dd2 oriented(5). Total: 15. 06:01 Eye Response: spontaneous(4). Motor Response: obeys commands(6). Verbal Response: bm8 oriented(5). Total: 15. MDM: 04:42 Medical Screening Exam initiated ec2 04:53 Data reviewed: vital signs. ED course: Patient arrives today for evaluation of ec2 abdominal discomfort along with diarrhea. Examination remarkable for well-appearing nontoxic individuals otherwise in no acute distress with a reassuring examination. Will obtain lab work, treat the patient's symptoms with crystalloid, Toradol as well as Zofran. Suspect gastroenteritis. Differential initially included processes such as appendicitis, cholecystitis, electrolyte disturbances, dehydration. 01/06 04:44 Order name: CBC with Diff; Complete Time: 05:24 ec2 01/06 04:44 Order name: CMP; Complete Time: 05:29 ec2 01/06 04:44 Order name: Lipase; Complete Time: 05:29 ec2 01/06 04:44 Order name: IV Saline Lock; Complete Time: 05:04 ec2 01/06 04:44 Order name: Labs collected and sent; Complete Time: 05:04 ec2 Administered Medications: 05:30 CANCELLED (Physician Discretion): ns 0.9% 1000 ml IV at 1 bolus Per protocol; to be ec2 given as a bolus over 60 minutes 05:31 Drug: TORadol - Ketorolac IVP 15 mg IVP once Route: IVP; Site: right antecubital; bm8 05:46 Follow up: Response: No adverse reaction dd2 05:31 Drug: Ondansetron IVP 4 mg IVP once; over 2 minutes Route: IVP; Site: right antecubital;bm8 05:46 Follow up: Response: No adverse reaction dd2 Disposition Summary: 01/07/24 05:55 Discharge Ordered Notes: Location: Home ec2 Condition: Stable ec2 Diagnosis - Infectious gastroenteritis and colitis, unspecified ec2 Followup: ec2 - With: Private Physician - When: - Reason: Re-evaluation by your physician Discharge Instructions: - Discharge Summary Sheet ec2 - Viral Gastroenteritis, Adult ec2 Forms: - Work release form ec2 - Medication Reconciliation Form ec2 - Antibiotic Education ec2 - Prescription Opioid Use ec2 - Patient Portal Instructions ec2 - Leadership Thank You Letter ec2 Prescriptions: - dicyclomine 10 mg Oral capsule - take 1 capsule ORAL route 3 times per day; 20 capsule; Refills: 0, Product ec2 Selection Permitted Signatures: Dispatcher [employer] Valeria Mo RN RN vc1 Paxton Watson MD MD ec2 Daniel Garcia RN RN bm8 FABIAN REARDON RN dd2 Corrections: (The following items were deleted from the chart) 05:30 04:44 NS 0.9% IV 1000 ml IV at 1 bolus Per protocol; to be given as a bolus over 60 ec2 minutes ordered. ec2
--- NOTE | 2024-01-07 05:56 | ER ---
Nurse's Notes [facility] Name: Tod Mcgovern II Age: 38 yrs Sex: Male : 1985 Arrival Date: 01/07/2024 Time: 04:34 Bed 5 Private MD: Diagnosis: Infectious gastroenteritis and colitis, unspecified Presentation: 01/06 04:49 Chief complaint: Patient states: abdominal pain and diarrhea that started yesterday vc1 evening. Coronavirus screen: Client denies travel out of the [place] in the last 14 days. At this time, the client does not indicate any symptoms associated with coronavirus-19. Ebola Screen: Patient negative for fever greater than or equal to 101.5 degrees Fahrenheit, and additional compatible Ebola Virus Disease symptoms Patient denies exposure to infectious person. Patient denies travel to an Ebola-affected area in the 21 days before illness onset. No symptoms or risks identified at this time. Initial Sepsis Screen: Does the patient meet any 2 criteria? No. Patient's initial sepsis screen is negative. Does the patient have a suspected source of infection? No. Patient's initial sepsis screen is negative. Risk Assessment: Do you want to hurt yourself or someone else?. Onset of symptoms was January 06, 2024. 04:49 Method Of Arrival: Ambulatory vc1 04:49 Acuity: ESTEVAN 3 vc1 Triage Assessment: 04:54 General: Appears in no apparent distress. uncomfortable, Behavior is calm, cooperative, vc1 appropriate for age. Pain: Complains of pain in epigastric area Pain does not radiate. Pain currently is 4 out of 10 on a pain scale. Quality of pain is described as crampy, dull, Pain began 1 day ago. Also complains of nausea. EENT: No deficits noted. No signs and/or symptoms were reported regarding the EENT system. Neuro: Level of Consciousness is awake, alert, obeys commands, Oriented to person, place, time, situation, Appropriate for age. Cardiovascular: Capillary refill < 3 seconds Patient's skin is warm and dry. Respiratory: Airway is patent. GI: Abdomen is round non-distended, Reports diarrhea, epigastric pain, nausea. Derm: Skin is intact, is healthy with good turgor, Skin is dry, Skin is normal, Skin temperature is warm. Historical: - Allergies: 04:54 aloe vera (rash); vc1 - PMHx: 04:54 cocaine addict; recovered; depressive disorder; diabetes mellitus; Migraines; vc1 - PSHx: 04:54 None; vc1 - Immunization history:: Client reports receiving the 2nd dose of the Covid vaccine. - Infectious Disease History:: Denies. - Social history:: Smoking status: Patient denies any tobacco usage or history of. Screenin:00 [facility] ED Fall Risk Assessment (Adult) History of falling in the last 3 months, dd2 including since admission. [facility] ED Fall Risk Assessment (Adult) History of falling in the last 3 months, including since admission No falls in past 3 months (0 pts) Confusion or Disorientation No (0 pts) Intoxicated or Sedated No (0 pts) Impaired Gait No (0 pts) Mobility Assist Device Used No (0 pt) Altered Elimination No (0 pt) Score/Fall Risk Level 0 - 2 = Low Risk Oriented to surroundings, Maintained a safe environment, Educated pt \T\ family on fall prevention, incl call for assistance when getting out of bed, Assessed \T\ reinforced patient's understanding of fall precautions, Hourly rounding (assess needs \T\ fall precautionary measures) done. Abuse screen: Denies threats or abuse. Nutritional screening: No deficits noted. Tuberculosis screening: No symptoms or risk factors identified. Assessment: 05:00 Reassessment: see triage assessment for full assessment. dd2 05:00 GI: Bowel sounds present X 4 quads. Abd is soft and non tender. dd2 06:01 Reassessment: Patient appears in no apparent distress at this time. Patient and/or bm8 family updated on plan of care and expected duration. Pain level reassessed. Patient is alert, oriented x 3, equal unlabored respirations, skin warm/dry/pink. Patient states feeling better. Patient states symptoms have improved. General: Appears in no apparent distress. comfortable, Behavior is calm, cooperative, appropriate for age. Pain: Complains of pain in abdomen Pain currently is 3 out of 10 on a pain scale. Vital Signs: 04:49 BP 132 / 83; Pulse 67; Resp 16; Temp 99.3; Pulse Ox 100% ; Weight 135.62 kg; Height 5 vc1 ft. 10 in. ; Pain 4/10; 05:30 BP 129 / 71; Pulse 64; Resp 17; Temp 98.7; Pulse Ox 100% ; dd2 06:01 BP 125 / 74; Pulse 65; Resp 17; Temp 98.7; Pulse Ox 100% ; Pain 3/10; bm8 04:49 Body Mass Index 42.90 (135.62 kg, 177.8 cm) vc1 04:49 Pain Scale: Adult vc1 06:01 Pain Scale: Adult bm8 [place] Coma Score: 05:00 Eye Response: spontaneous(4). Motor Response: obeys commands(6). Verbal Response: dd2 oriented(5). Total: 15. 06:01 Eye Response: spontaneous(4). Motor Response: obeys commands(6). Verbal Response: bm8 oriented(5). Total: 15. ED Course: 04:40 Patient arrived in ED. gm2 04:41 Paxton Watson MD is Attending Physician. ec2 04:53 Triage completed. vc1 04:54 Arm band placed on left wrist. vc1 05:00 Patient has correct armband on for positive identification. Bed in low position. Call dd2 light in reach. Provided Education on: call light, medications, labs, result times. Client placed on continuous cardiac and pulse oximetry monitoring. NIBP monitoring applied. Door closed. Noise minimized. Verbal reassurance given. 05:00 No provider procedures requiring assistance completed. Patient maintains SpO2 dd2 saturation greater than 95% on room air. 05:04 CBC with Diff Sent. ty 05:04 CMP Sent. ty 05:04 Lipase Sent. ty 05:04 Initial lab(s) drawn, by me, sent to lab. Inserted saline lock: 20 gauge in right ty antecubital area, using aseptic technique. Blood collected. Flushed with 10 mL NS. 05:56 FABIAN REARDON, RN is Primary Nurse. dd2 06:00 IV discontinued, intact, bleeding controlled, No redness/swelling at site. Pressure dd2 dressing applied. Administered Medications: 05:30 CANCELLED (Physician Discretion): ns 0.9% 1000 ml IV at 1 bolus Per protocol; to be ec2 given as a bolus over 60 minutes 05:31 Drug: TORadol - Ketorolac IVP 15 mg IVP once Route: IVP; Site: right antecubital; bm8 05:46 Follow up: Response: No adverse reaction dd2 05:31 Drug: Ondansetron IVP 4 mg IVP once; over 2 minutes Route: IVP; Site: right antecubital;bm8 05:46 Follow up: Response: No adverse reaction dd2 Medication: 05:00 VIS not applicable for this client. dd2 Outcome: 05:55 Discharge ordered by . ec2 06:00 Discharged to home ambulatory, dd2 06:00 Condition: stable 06:00 Discharge instructions given to patient, Instructed on discharge instructions, follow up and referral plans. medication usage, Demonstrated understanding of instructions, follow-up care, medications, Prescriptions given X 1, 06:01 Patient left the ED. dd2 Signatures: Valeria Lobo RN RN vc1 Paxton Watson MD MD ec2 Paula Fraga 2 Edmundo Horn Brad, RN RN bm8 FABIAN REARDON RN RN dd2
[2024-01-07 06:10] VITALS: O2SAT 100
[2024-01-07 06:20] VITALS: BP 129/71; TEMP 98.7
== END 2024-01-07 06:01 | disposition home or self-care (01) ==
LOC: ER 04:34
DX: A09 Infectious gastroenteritis and colitis, unspecified (principal)
CPT/HCPCS: 36415; 80053; 83690; 85025; 96374; 96375; 99284; J2405; J7030

== ENCOUNTER 2024-01-15 05:44 | Emergency (ER) | payer SELFPAY ==
[2024-01-15] MEDS ORDERED: IBUPROFEN 400 MG TAB ONE (06:58)
[2024-01-15] MEDS ORDERED: CODEINE 30MG/APAP 300MG TAB ONE (06:58)
[2024-01-15] MEDS ORDERED: ALBUTEROL 2.5 MG/3 ML NEB SOL ONE (06:58)
[2024-01-15] MEDS ORDERED: GUAIFENESIN/DM 5 ML UCUP ONE (06:59)
[2024-01-15 07:04] LABS: SARS-CoV-2 Antigen CONTROL BLUE LINE VIS/BG OK; SARS-CoV-2 Antigen Rapid Res Negative (Negative)
[2024-01-15] MEDS ORDERED: BENZONATATE 100 MG CAP PO ONE (07:17)
--- NOTE | 2024-01-15 07:19 | ER ---
Nurse's Notes [facility] Name: Tod Mcgovern II Age: 38 yrs Sex: Male : 1985 Arrival Date: 01/15/2024 Time: 05:44 Bed 6 Private MD: Diagnosis: Acute pharyngitis, unspecified;Cough Presentation: 01/14 06:01 Chief complaint: Patient states: c/o sore throat, nasal congestion, cough, "lung pain" al5 since 0400, states it woke him up from his sleep. states he felt "icky" yesterday, but did not think he was coming down with something. Coronavirus screen: congestion, cough unrelated to allergies, runny nose, sore throat. Ebola Screen: No symptoms or risks identified at this time. Resp Distress? No respiratory distress is noted at this time. Initial Sepsis Screen: Does the patient meet any 2 criteria? No. Patient's initial sepsis screen is negative. Does the patient have a suspected source of infection? No. Patient's initial sepsis screen is negative. Risk Assessment: Do you want to hurt yourself or someone else? Patient reports no desire to harm self or others. Onset of symptoms was January 15, 2024. 06:01 Method Of Arrival: Ambulatory al5 06:01 Acuity: ESTEVAN 4 al5 Triage Assessment: 06:04 General: Appears in no apparent distress. Behavior is calm, cooperative. Pain:. Pain: al5 Complains of pain in lungs Pain currently is 4 out of 10 on a pain scale. EENT: No signs and/or symptoms were reported regarding the EENT system. Neuro: Level of Consciousness is awake, alert, obeys commands, Oriented to person, place, time, situation. Cardiovascular: Capillary refill < 3 seconds Patient's skin is warm and dry. Respiratory: Airway is patent Respiratory effort is even, unlabored, Respiratory pattern is regular, symmetrical, Onset: The symptoms/episode began/occurred this morning. GI: No signs and/or symptoms were reported involving the gastrointestinal system. Abdomen is non-distended, obese. : No signs and/or symptoms were reported regarding the genitourinary system. Derm: Skin is intact, is healthy with good turgor, Skin is pink, warm \\T\\ dry. normal. Musculoskeletal: No signs and/or symptoms reported regarding the musculoskeletal system. Historical: - Allergies: 06:03 aloe vera (rash); al5 - PMHx: 06:03 cocaine addict; recovered; depressive disorder; diabetes mellitus; Migraines; al5 - PSHx: 06:03 None; al5 - Immunization history:: Adult Immunizations up to date. - Infectious Disease History:: Denies. - Social history:: Smoking status: unknown. - Family history:: not pertinent. Screenin:06 [facility] ED Fall Risk Assessment (Adult) History of falling in the last 3 months, al5 including since admission No falls in past 3 months (0 pts) Confusion or Disorientation No (0 pts) Intoxicated or Sedated No (0 pts) Impaired Gait No (0 pts) Mobility Assist Device Used No (0 pt) Altered Elimination No (0 pt) Score/Fall Risk Level 0 - 2 = Low Risk Oriented to surroundings, Maintained a safe environment, Hourly rounding (assess needs \\T\\ fall precautionary measures) done. Abuse screen: Denies threats or abuse. Denies injuries from another. Nutritional screening: No deficits noted. Tuberculosis screening: No symptoms or risk factors identified. Assessment: 06:06 Reassessment: see triage assessment. Cardiovascular: Capillary refill < 3 seconds al5 Patient's skin is warm and dry. 07:33 General: Appears in no apparent distress. Behavior is calm, cooperative. Respiratory: iw Reports shortness of breath cough that is Breath sounds are clear bilaterally. Vital Signs: 06:01 BP 133 / 83; Pulse 71; Resp 18; Temp 98.1; Pulse Ox 97% on R/A; Weight 136.08 kg; al5 Height 5 ft. 10 in. ; Pain 4/10; 06:01 Body Mass Index 43.05 (136.08 kg, 177.8 cm) al5 06:01 Pain Scale: Adult al5 Hawkins Coma Score: 06:54 Eye Response: spontaneous(4). Motor Response: obeys commands(6). Verbal Response: sp4 oriented(5). Total: 15. ED Course: 05:46 Patient arrived in ED. jj6 05:49 Ismael Abdi MD is Attending Physician. vc1 06:00 Humera Stevens RN is Primary Nurse. al5 06:03 Triage completed. al5 06:05 Arm band placed on left wrist. Patient placed in the treatment room, on a stretcher. al5 06:06 Patient has correct armband on for positive identification. Bed in low position. Call al5 light in reach. Side rails up X 1. Provided Education on: plan of care, wait time for results. 06:07 No provider procedures requiring assistance completed. Patient did not have IV access al5 during this emergency room visit. 06:33 Chest Single View XRAY In Process Unspecified. EDMS Administered Medications: 07:05 Drug: Albuterol Inhalation 2.5 mg Inhalation once Route: Inhalation; al5 07:05 Not Given (Patient Refused): acetaminophen-codeine(300 mg-30 mg) 2 tabs PO once; RASS al5 on ADMIN: Combtv4, Very Agttd3, Agttd2, Rstlss1, AlertClm0, Drwsy-1, Lt Sdtn-2, Mod Sdtn-3, Dp Sdtn-4, UnArsble-5 07:05 Drug: Dextromethorphan-Guaifenesin PO Liquid 10 mg-100 mg/5 mL 10 ml PO once Route: PO; al5 07:05 Drug: Ibuprofen PO 800 mg PO once Route: PO; al5 07:26 Drug: AZITHromycin PO 500 mg PO once Route: PO; iw 07:27 Drug: Tessalon Perle PO 200 mg PO once Route: PO; iw Medication: 06:06 VIS not applicable for this client. al5 Outcome: 07:19 Discharge ordered by . sp4 07:33 Discharged to home ambulatory, with family, iw 07:33 Condition: good 07:33 Discharge instructions given to patient, Instructed on discharge instructions, follow up and referral plans. medication usage, Demonstrated understanding of instructions, follow-up care, medications, Prescriptions given X 4, 07:34 Patient left the ED. iw Signatures: Dispatcher [employer] EDMS Mary Appiah RN RN iw Yudith Mary6 Valeria Lobo RN RN 1 Ismael Abdi MD MD sp4 Humera Stevens RN RN al5
--- NOTE | 2024-01-15 07:19 | EDPHYS ---
Physician Documentation [facility] Name: Tod Mcgovern II Age: 38 yrs Sex: Male : 1985 Arrival Date: 01/15/2024 Time: 05:44 Bed 6 Private MD: ED Physician Ismael Abdi HPI: 01/14 06:23 This 38 yrs old Male presents to ER via Ambulatory with complaints of Cough, sp4 Congestion, Chest Wall Pain, Sore Throat. 06:54 38-year-old male presents with acute onset of cough, congestion, chest wall pain, sore sp4 throat, patient reports that yesterday he felt icky. . Historical: - Allergies: 06:03 aloe vera (rash); al5 - PMHx: 06:03 cocaine addict; recovered; depressive disorder; diabetes mellitus; Migraines; al5 - PSHx: 06:03 None; al5 - Immunization history:: Adult Immunizations up to date. - Infectious Disease History:: Denies. - Social history:: Smoking status: unknown. - Family history:: not pertinent. ROS: 06:54 Constitutional: Negative for fever, chills, and weight loss, Positive cough, positive sp4 congestion, positive chest wall pain, positive sore throat, positive feeling unwell, positive chest wall pain 06:54 All other systems are negative, Exam: 06:54 Constitutional: This is a well developed, well nourished patient who is awake, alert, sp4 and in no acute distress. Head/Face: Normocephalic, atraumatic. Eyes: Pupils equal round and reactive to light, extra-ocular motions intact. Lids and lashes normal. Conjunctiva and sclera are not injected. Cornea within normal limits. Periorbital areas with no swelling, redness, or edema. ENT: Nares patent. No nasal discharge, no septal abnormalities noted. Tympanic membranes are normal and external auditory canals are clear. Oropharynx with no redness, swelling, or masses, exudates, or evidence of obstruction, uvula midline. Mucous membranes moist. Neck: Trachea midline, no thyromegaly or masses palpated, and no cervical lymphadenopathy. Supple, full range of motion without nuchal rigidity, or vertebral point tenderness. Chest/axilla: Normal chest wall appearance and motion. Nontender with no deformity. No lesions are appreciated. Cardiovascular: Regular rate and rhythm with a normal S1 and S2. No gallops, murmurs, or rubs. Normal PMI, no JVD. No pulse deficits. Respiratory: Lungs have equal breath sounds bilaterally, clear to auscultation and percussion. No rales, rhonchi or wheezes noted. No increased work of breathing, no retractions or nasal flaring. Abdomen/GI: Soft, with normal bowel sounds. No distension or tympany. No guarding or rebound. No evidence of tenderness throughout. Back: No spinal tenderness. No costovertebral tenderness. Skin: Warm, dry with normal turgor. Normal color with no rashes, no lesions, and no evidence of cellulitis. MS/ Extremity: Pulses equal, no cyanosis. Neurovascular intact. Full, normal range of motion. Neuro: Awake and alert, GCS 15, oriented to person, place, time, and situation. Cranial nerves II-XII grossly intact. Motor strength 5/5 in all extremities. Sensory grossly intact. Psych: Awake, alert, with orientation to person, place and time. Behavior, mood, and affect are within normal limits Vital Signs: 06:01 BP 133 / 83; Pulse 71; Resp 18; Temp 98.1; Pulse Ox 97% on R/A; Weight 136.08 kg; al5 Height 5 ft. 10 in. ; Pain 4/10; 06:01 Body Mass Index 43.05 (136.08 kg, 177.8 cm) al5 06:01 Pain Scale: Adult al5 Jimmie Coma Score: 06:54 Eye Response: spontaneous(4). Motor Response: obeys commands(6). Verbal Response: sp4 oriented(5). Total: 15. MDM: 06:23 Medical Screening Exam initiated sp4 07:23 Differential Diagnosis: Obstructed Airway Bronchitis Influenza Upper Respiratory sp4 Infection Sinusitis Pharyngitis Otitis Media. Data reviewed: vital signs, nurses notes, lab test result(s), radiologic studies, plain films. ED course: stable for discharge home.. 01/14 06:16 Order name: Strep vc1 01/14 06:16 Order name: Flu; Complete Time: 07:10 vc1 01/14 06:16 Order name: SARS-COV-2 Antigen Rapid; Complete Time: 07:10 vc1 01/14 07:06 Order name: Glucose, Ancillary Testing; Complete Time: 07:10 EDMS 01/14 07:08 Order name: Throat Culture EDOK 01/14 07:08 Order name: Glucose, Ancillary Testing EDOK 01/14 06:16 Order name: Chest Single View XRAY vc1 01/14 06:43 Order name: Accucheck Blood Glucose; Complete Time: 07:05 sp4 Administered Medications: 07:05 Drug: Albuterol Inhalation 2.5 mg Inhalation once Route: Inhalation; al5 07:05 Not Given (Patient Refused): acetaminophen-codeine(300 mg-30 mg) 2 tabs PO once; RASS al5 on ADMIN: Combtv4, Very Agttd3, Agttd2, Rstlss1, AlertClm0, Drwsy-1, Lt Sdtn-2, Mod Sdtn-3, Dp Sdtn-4, UnArsble-5 07:05 Drug: Dextromethorphan-Guaifenesin PO Liquid 10 mg-100 mg/5 mL 10 ml PO once Route: PO; al5 07:05 Drug: Ibuprofen PO 800 mg PO once Route: PO; al5 07:26 Drug: AZITHromycin PO 500 mg PO once Route: PO; iw 07:27 Drug: Tessalon Perle PO 200 mg PO once Route: PO; iw Disposition Summary: 01/15/24 07:19 Discharge Ordered Notes: Location: Home sp4 Problem: new sp4 Symptoms: have improved sp4 Condition: Stable sp4 Diagnosis - Acute pharyngitis, unspecified sp4 - Cough sp4 Followup: sp4 - With: Private Physician - When: 7 - 10 days - Reason: Recheck today's complaints Discharge Instructions: - Discharge Summary Sheet sp4 - Pharyngitis sp4 Forms: - Work release form iw - Patient Portal Instructions sp4 Prescriptions: - Ventolin HFA 90 mcg/actuation Inhalation HFA Aerosol Inhaler - inhale 2 inhalation INHALATION route every 4 hours Dispense with Spacer - sp4 Use Q 4 hours PRN cough; 1 unit; Refills: 0, Product Selection Permitted - dextromethorphan-guaifenesin 60-1,200 mg Oral Tablet, Extended Release 12 hr - take 1 tablet ORAL route every 12 hours PRN cough; 40 tablet; Refills: 0, sp4 Product Selection Permitted - Zithromax 500 mg Oral Tablet - take 2 tablets ORAL route one time; 2 tablet; Refills: 0, Product Selection sp4 Permitted - benzonatate 200 mg Oral capsule - take 1 capsule ORAL route 3 times per day as needed; 60 capsule; Refills: 0, sp4 Product Selection Permitted Signatures: Dispatcher [employer] EDMray Camilo, PAWEL RN iw Ismael Abdi MD MD sp4 Humera Stevens RN RN al5 Corrections: (The following items were deleted from the chart) 06:16 06:16 Group A Streptococcus Rapid Sc+BA.LAB.BRZ ordered. EDMS EDMS 06:16 06:16 Influenza Screen (A \T\ B)+BA.LAB.BRZ ordered. EDMS EDMS 06:16 06:16 SARS-COV-2 Antigen Rapid+I.LAB.BRZ ordered. EDMS EDMS
[2024-01-15] MEDS ORDERED: AZITHROMYCIN 250 MG TAB ONE (07:24)
[2024-01-15 07:38] VITALS: BP 133/83; TEMP 98.1; O2SAT 97
--- NOTE | 2024-01-15 07:56 | RAD REPORT ---
EXAMINATION: ONE VIEW CHEST XR CLINICAL INDICATION: COUGH TECHNIQUE: Frontal chest projection is submitted. Examination is limited by patient positioning and t echnique. COMPARISON: 01/02/2022 FINDINGS: Patchy opacity seen in the medial right lung base superimposed on mild interstitial prominence. This would be suspicious for developing pneumonia. The heart is normal in size. No displaced fractures identified. IMPRESSION: Medial right lower lobe pneumonia.
== END 2024-01-15 07:34 | disposition home or self-care (01) ==
LOC: ER 05:44
DX: R05.9 Cough, unspecified (principal); J02.9 Acute pharyngitis, unspecified; Z11.52 Encounter for screening for COVID-19
CPT/HCPCS: 36415; 71045; 82947; 87070; 87081; 87804; 87811; 99284; J7613

== ENCOUNTER 2024-01-20 07:01 | Emergency (ER) | payer SELFPAY ==
--- NOTE | 2024-01-20 07:56 | RAD REPORT ---
EXAM: Chest Single View HISTORY: COUGH COMPARISON: 01/15/2024. FINDINGS: LUNGS/PLEURA: Aeration at the medial right lung base has slightly improved. The overall lung volumes are improved. MEDIASTINUM: The mediastinal silhouette is within normal limits. CARDIAC: The cardiac silhouette is within normal limits. UPPER ABDOMEN: No significant abnormality. BONES: No acute fracture. LINES/TUBES/OTHER: N/A IMPRESSION: No evidence of acute cardiopulmonary disease. Airspace disease in the right lung base on the prior ex am has improved.
--- NOTE | 2024-01-20 07:57 | EDPHYS ---
Physician Documentation [facility] Name: Tod Mcgovern II Age: 38 yrs Sex: Male : 1985 Arrival Date: 01/20/2024 Time: 07:01 Bed 13 Private MD: ED Physician Paxton Watson HPI: 01/19 07:20 This 38 yrs old Male presents to ER via Unassigned with complaints of ec2 Shortness Of Breath, Chest Congestion. 07:20 Patient arrives today for evaluation of persistent cough and cold symptoms. Reports ec2 that he was recently diagnosed with her pharyngitis and started on azithromycin. Patient reports that he still having cough and productive sputum as well as diarrhea, albeit, all getting better. Patient asking for work note.. Historical: - Allergies: 07:13 aloe vera (rash); ll1 - PMHx: 07:13 cocaine addict; recovered; depressive disorder; diabetes mellitus; Migraines; ll1 - Immunization history:: Adult Immunizations up to date. - Infectious Disease History:: Denies. - Social history:: Smoking status: Patient reports the use of cigarette tobacco products, denies chronic smoking, but will smoke occasionally, Patient reports use of chewing tobacco. Reported history of juuling and/or vaping. ROS: 07:20 Constitutional: as per hpi ec2 Exam: 07:20 Constitutional: GEN: NAD Head: atraumatic Eyes: EOMI Ears: External ears are ec2 normal. CV: regular rate LUNGS: no respiratory distress, no wheezes, no rales, no rhonchi ABD: non-distended SKIN: no evidence of rashes MSK: no evidence of trauma Vital Signs: 07:18 BP 130 / 80; Pulse 95; Resp 17; Temp 97.6(O); Pulse Ox 99% ; Weight 140.61 kg; Height 5 ss ft. 9 in. ; Pain 4/10; 08:07 BP 136 / 78; Pulse 89; Resp 17; Pulse Ox 99% ; ll1 07:18 Body Mass Index 45.78 (140.61 kg, 175.26 cm) ss 07:18 Pain Scale: Adult ss MDM: 07:13 Medical Screening Exam initiated ec2 07:20 Data reviewed: vital signs. ED course: Patient arrives today for URI symptoms. ec2 Emanation remarkable for well-appearing nontoxic hemodynamically stable individuals otherwise in no acute distress. Suspect viral infection. Will obtain chest x-ray to evaluate for postinfectious pneumonia. Additionally considered other processes such as dehydration, electrolyte disturbances however patient is well-appearing with reassuring vital signs, did not feel would be appropriate to obtain lab work at this time given his well appearance.. 07:54 ED course: Chest x-ray independently reviewed and interpreted by me, shows no acute ec2 intrathoracic process.. 07:54 ED course: Patient ultimately with improving symptoms and reassuring hemodynamics and ec2 chest x-ray. Will discharge home, suspect viral infection and have the patient follow-up primary care. Return precautions given.. 01/19 07:20 Order name: CXR XRAY; Complete Time: 07:56 ec2 Administered Medications: No medications were administered Disposition Summary: 01/20/24 07:56 Discharge Ordered Notes: Location: Home ec2 Condition: Stable ec2 Diagnosis - Viral infection, unspecified ec2 Followup: ec2 - With: Private Physician - When: - Reason: Re-evaluation by your physician Discharge Instructions: - Discharge Summary Sheet ec2 - Viral Respiratory Infection ec2 Forms: - Work release form ec2 - Medication Reconciliation Form ec2 - Antibiotic Education ec2 - Prescription Opioid Use ec2 - Patient Portal Instructions ec2 - Leadership Thank You Letter ec2 Prescriptions: - Zofran 4 mg Oral Tablet - take 1 tablet ORAL route every 12 hours As needed; 20 tablet; Refills: 0, ec2 Product Selection Permitted Signatures: Dispatcher [employer] Susan Maldonado RN RN ss Lewis, Lynsay, RN RN [facility] Paxton Watson MD MD ec2
--- NOTE | 2024-01-20 07:57 | ER ---
Nurse's Notes [facility] Name: Tod Mcgovern II Age: 38 yrs Sex: Male : 1985 Arrival Date: 01/20/2024 Time: 07:01 Bed 13 Private MD: Diagnosis: Viral infection, unspecified Presentation: 01/19 07:18 Chief complaint: Patient states: residual cough after being diagnosed with pharyngitis ss 6 days ago. Denies fever. Coronavirus screen: Client denies travel out of the [place] in the last 14 days. Ebola Screen: Patient denies exposure to infectious person. Patient denies travel to an Ebola-affected area in the 21 days before illness onset. Initial Sepsis Screen: Does the patient meet any 2 criteria? No. Patient's initial sepsis screen is negative. Does the patient have a suspected source of infection? No. Patient's initial sepsis screen is negative. Risk Assessment: Do you want to hurt yourself or someone else? Patient reports no desire to harm self or others. Onset of symptoms was January 16, 2024. 07:18 Method Of Arrival: Ambulatory ss 07:18 Acuity: ESTEVAN 3 ss Triage Assessment: 08:09 Respiratory: Onset: The symptoms/episode began/occurred Friday night, the patient ll1 has mild shortness of breath. Historical: - Allergies: 07:13 aloe vera (rash); ll1 - PMHx: 07:13 cocaine addict; recovered; depressive disorder; diabetes mellitus; Migraines; ll1 - Immunization history:: Adult Immunizations up to date. - Infectious Disease History:: Denies. - Social history:: Smoking status: Patient reports the use of cigarette tobacco products, denies chronic smoking, but will smoke occasionally, Patient reports use of chewing tobacco. Reported history of juuling and/or vaping. Screenin:08 [facility] ED Fall Risk Assessment (Adult) History of falling in the last 3 months, ll1 including since admission No falls in past 3 months (0 pts) Confusion or Disorientation No (0 pts) Intoxicated or Sedated No (0 pts) Impaired Gait No (0 pts) Mobility Assist Device Used No (0 pt) Altered Elimination No (0 pt) Score/Fall Risk Level 0 - 2 = Low Risk Oriented to surroundings, Hourly rounding (assess needs \T\ fall precautionary measures) done. Abuse screen: Denies threats or abuse. Nutritional screening: No deficits noted. Tuberculosis screening: No symptoms or risk factors identified. Assessment: 08:07 General: Appears in no apparent distress. Behavior is calm, cooperative, appropriate ll1 for age, Reports fatigue for. Pain: Denies pain. Cardiovascular: Rhythm is regular. Respiratory: Reports cough that is dry, Airway is patent Trachea midline Respiratory effort is even, unlabored, Breath sounds are clear bilaterally. Vital Signs: 07:18 BP 130 / 80; Pulse 95; Resp 17; Temp 97.6(O); Pulse Ox 99% ; Weight 140.61 kg; Height 5 ss ft. 9 in. ; Pain 4/10; 08:07 BP 136 / 78; Pulse 89; Resp 17; Pulse Ox 99% ; ll1 07:18 Body Mass Index 45.78 (140.61 kg, 175.26 cm) ss 07:18 Pain Scale: Adult ss ED Course: 07:06 Patient arrived in ED. jj6 07:09 Paxton Watson MD is Attending Physician. ec2 07:13 Toño Rodriguez, RN is Primary Nurse. ll1 07:13 Arm band placed on Patient placed in an exam room, on a stretcher. ll1 07:21 Triage completed. ss 07:52 CXR XRAY In Process Unspecified. EDMS 08:08 Patient has correct armband on for positive identification. Provided Education on: ll1 return to ED for worsening symptoms. 08:08 No provider procedures requiring assistance completed. Patient did not have IV access ll1 during this emergency room visit. Administered Medications: No medications were administered Medication: 08:09 VIS not applicable for this client. ll1 Outcome: 07:56 Discharge ordered by . ec2 08:08 Discharged to home ambulatory, ll1 08:08 Condition: stable 08:08 Discharge instructions given to patient, Instructed on discharge instructions, follow up and referral plans. medication usage, Demonstrated understanding of instructions, follow-up care, medications, Prescriptions given X 1, 08:09 Patient left the ED. ll1 Signatures: Dispatcher [employer] EDMS Susan Potter RN RN ss Toño Rodriguez RN RN ll1 Yudith Mary jj6 Paxton Watson MD MD ec2
[2024-01-20 08:14] VITALS: TEMP 97.6; O2SAT 99
[2024-01-20 08:15] VITALS: BP 136/78
== END 2024-01-20 08:09 | disposition home or self-care (01) ==
LOC: ER 07:01
DX: B34.9 Viral infection, unspecified (principal); F17.210 Nicotine dependence, cigarettes, uncomplicated
CPT/HCPCS: 71045; 99283

== ENCOUNTER 2024-02-23 05:31 | Emergency (ER) | payer SELFPAY ==
[2024-02-23] MEDS ORDERED: METHYLPREDNISOLONE 125 MG INJ ONE (05:41)
[2024-02-23] MEDS ORDERED: DIPHENHYDRAMINE 50 MG/ML VIAL ONE (05:41)
[2024-02-23] MEDS ORDERED: NA CHLORIDE 0.9% 1,000 ML ONE (05:41)
[2024-02-23] MEDS ORDERED: FAMOTIDINE 20 MG/2 ML VIAL IV ONE (05:41)
[2024-02-23] MEDS ORDERED: predniSONE 20 MG TAB ONE (06:02)
[2024-02-23 06:09] LABS: Absolute Basophils 0.1 K/uL (0-0.5); Absolute Eosinophils 0.4 K/uL (0-0.5); Absolute Lymphocytes (CBC) 2.5 K/uL (0.7-4.9); Absolute Monocytes 0.6 K/uL (0.1-1.3); Absolute Neutrophil 4.3 K/uL (1.8-8.0); Basophils % 1.1 % (0-1.3); Eosinophils % 4.9 % (0-4.4); Hematocrit 46.5 % (39.6-49.0); Hemoglobin 16.2 g/dL (13.6-17.9); Lymphocytes % 32.4 % (15.3-44.8); MCH 30.3 pg (27.0-35.0); MCHC 34.7 g/dL (32.0-36.0); MCV 87.2 fL (80-100); MPV 7.9 fL (7.6-11.3); Monocytes % 7.6 % (3.3-12.3); Nucleated Red Blood Cells % 0.1 % (0-0); Platelets 315 thou/uL (152-406); RBC Red Blood Cell Count 5.34 M/uL (4.33-5.43); Red Cell Distribution Width 13.5 % (12.1-15.2)
[2024-02-23 06:26] LABS: Albumin 3.9 g/dL (3.4-5.0); Albumin/Globulin Ratio 1.3 (1.1-1.8); Anion Gap 7.4 mEq/L (5.0-15.0); Bilirubin Total 0.8 mg/dL (0.2-1.0); Potassium 4.4 mEq/L (3.5-5.1); Protein, Total 6.9 g/dL (6.4-8.2)
--- NOTE | 2024-02-23 06:32 | ER ---
Nurse's Notes [facility] Name: Tod Mcgovern II Age: 38 yrs Sex: Male : 1985 Arrival Date: 02/23/2024 Time: 05:31 Bed 16 Private MD: Diagnosis: Urticaria, unspecified;Dermatitis, unspecified Presentation: 02/22 05:34 Chief complaint: Patient states: hives and itching all over my body for the past three ha1 days. 05:34 Coronavirus screen: Client denies travel out of the [place] in the last 14 days. Ebola ha1 Screen: No symptoms or risks identified at this time. Initial Sepsis Screen: Does the patient meet any 2 criteria? No. Patient's initial sepsis screen is negative. Does the patient have a suspected source of infection? No. Patient's initial sepsis screen is negative. Risk Assessment: Do you want to hurt yourself or someone else? Patient reports no desire to harm self or others. Onset of symptoms was February 23, 2024. 05:34 Method Of Arrival: Ambulatory ha1 05:34 Acuity: ESTEVAN 4 ha1 Triage Assessment: 05:42 General: Appears uncomfortable, Behavior is cooperative. Pain: Denies pain. Neuro: ha1 Level of Consciousness is awake, alert, obeys commands, Oriented to person, place, time, situation. Cardiovascular: Capillary refill < 3 seconds Patient's skin is warm and dry. Respiratory: Airway is patent Respiratory effort is even, unlabored, Respiratory pattern is regular, symmetrical. GI: No signs and/or symptoms were reported involving the gastrointestinal system. Abdomen is round non-distended, obese. Derm: Skin is moist, Rash noted that is itchy, red, Reports itching, rash all over body. Musculoskeletal: Circulation, motion, and sensation intact. Range of motion:. Historical: - Allergies: 05:42 aloe vera (rash); ha1 - PMHx: 05:42 cocaine addict; recovered; depressive disorder; diabetes mellitus; Migraines; ha1 - Immunization history:: Adult Immunizations up to date. - Infectious Disease History:: Denies. - Social history:: Smoking status: Patient/guardian denies using tobacco, Stopped _ months ago 1. - Family history:: not pertinent. Screenin:45 [facility] ED Fall Risk Assessment (Adult) History of falling in the last 3 months, ha1 including since admission No falls in past 3 months (0 pts) Confusion or Disorientation No (0 pts) Intoxicated or Sedated No (0 pts) Impaired Gait No (0 pts) Mobility Assist Device Used No (0 pt) Altered Elimination No (0 pt) Score/Fall Risk Level 0 - 2 = Low Risk Oriented to surroundings, Maintained a safe environment, Educated pt \T\ family on fall prevention, incl call for assistance when getting out of bed, Hourly rounding (assess needs \T\ fall precautionary measures) done. Abuse screen: Denies threats or abuse. Denies injuries from another. Nutritional screening: No deficits noted. Tuberculosis screening: No symptoms or risk factors identified. Assessment: 05:50 Reassessment: Patient and/or family updated on plan of care and expected duration. Pain br2 level reassessed. Patient is alert, oriented x 3, equal unlabored respirations, skin warm/dry/pink. General: Appears uncomfortable, Behavior is cooperative, anxious. Pain: Denies pain. Neuro: Jensen Agitation-Sedation Scale (RASS): 0 - Alert and Calm Level of Consciousness is awake, alert, obeys commands, Oriented to person, place, time, situation. Cardiovascular: Capillary refill < 3 seconds. Respiratory: Airway is patent Respiratory effort is even, unlabored, Respiratory pattern is regular, symmetrical. GI: No signs and/or symptoms were reported involving the gastrointestinal system. : No signs and/or symptoms were reported regarding the genitourinary system. EENT: No signs and/or symptoms were reported regarding the EENT system. Derm: Skin is intact, Skin is normal, Skin temperature is warm Reports itching. Musculoskeletal: Capillary refill < 3 seconds, Range of motion: intact in all extremities. 06:48 Reassessment: Patient and/or family updated on plan of care and expected duration. Pain br2 level reassessed. Patient is alert, oriented x 3, equal unlabored respirations, skin warm/dry/pink. Patient states symptoms have improved. Vital Signs: 05:34 BP 159 / 76; Pulse 90; Resp 18 S; Temp 97.9; Pulse Ox 98% on R/A; Weight 140.61 kg (R); ha1 06:47 BP 155 / 95; Pulse 76; Resp 18; Pulse Ox 95% ; Pain 0/10; br2 06:47 Pain Scale: Adult br2 ED Course: 05:33 Patient arrived in ED. ra3 05:33 Cesar Hoyos MD is Attending Physician. lobito 05:34 Patient has correct armband on for positive identification. Bed in low position. Call ha1 light in reach. Side rails up X 1. 05:38 Janae Fiore, RN is Primary Nurse. br2 05:42 Triage completed. ha1 05:45 Inserted saline lock: 20 gauge in left antecubital area, using aseptic technique. Blood br2 collected. Flushed with 10 mL NS. 06:06 Comprehensive Metabolic Panel Sent. br2 06:06 CBC with Diff Sent. br2 06:31 Jean-Claude Arreguin DO is Referral Physician. lobito 06:48 No provider procedures requiring assistance completed. IV discontinued, intact, br2 bleeding controlled, No redness/swelling at site. Pressure dressing applied. Administered Medications: 06:05 Drug: NS 0.9% IV 1000 ml IV at 1000 ml once; to be given as a bolus over 60 minutes br2 Route: IV; Rate: 1000 ml; Site: left antecubital; 06:50 Follow up: IV Status: Completed infusion; IV Intake: 1000ml br2 06:06 Drug: diphenhydrAMINE IVP 50 mg IVP once Route: IVP; Site: left antecubital; br2 06:49 Follow up: Response: No adverse reaction br2 06:06 Drug: Famotidine IVP 40 mg IVP once; dilute with 10 mL 0.9% NaCl; give over 2 minutes br2 Route: IVP; Site: left antecubital; 06:49 Follow up: Response: No adverse reaction br2 06:06 Drug: MethylPrednisoLONE IVP 125 mg IVP once Route: IVP; Site: left antecubital; br2 06:49 Follow up: Response: No adverse reaction br2 06:06 Drug: predniSONE PO 60 mg PO once Route: PO; br2 06:50 Follow up: Response: No adverse reaction br2 Medication: 05:45 VIS not applicable for this client. ha1 Intake: 06:50 IV: 1000ml; Total: 1000ml. br2 Outcome: 06:32 Discharge ordered by . lobito 06:48 Discharged to home ambulatory, br2 06:48 Condition: improved 06:48 Discharge instructions given to patient, Instructed on discharge instructions, Demonstrated understanding of instructions, medications, Prescriptions given X 06:50 Patient left the ED. br2 Signatures: Cesar Hoyos MD MD cha Ayala, Heidy RN RN [id number] Tea Phillips ra3 Janae Fiore RN RN br2
--- NOTE | 2024-02-23 06:32 | EDPHYS ---
Physician Documentation [facility] Name: Tod Mcgovern II Age: 38 yrs Sex: Male : 1985 Arrival Date: 02/23/2024 Time: 05:31 Bed 16 Private MD: ED Physician Cesar Hoyos HPI: 02/22 06:09 This 38 yrs old Male presents to ER via Ambulatory with complaints of Hives lobito itching all over. 06:09 The patient's rash thought to be caused by Dermatitis Contact allergy an unknown cause. lobito The rash is located on the body diffusely. The rash can be described as erythematous. Onset: The symptoms/episode began/occurred this morning, today. Associated signs and symptoms: Pertinent positives: burning sensation. Severity of symptoms: At their worst the symptoms were moderate in the emergency department the symptoms are unchanged. Historical: - Allergies: 05:42 aloe vera (rash); ha1 - PMHx: 05:42 cocaine addict; recovered; depressive disorder; diabetes mellitus; Migraines; ha1 - Immunization history:: Adult Immunizations up to date. - Infectious Disease History:: Denies. - Social history:: Smoking status: Patient/guardian denies using tobacco, Stopped _ months ago 1. - Family history:: not pertinent. ROS: 06:09 Constitutional: Negative for fever, chills, and weight loss, Eyes: Negative for injury, lobito pain, redness, and discharge, ENT: Negative for injury, pain, and discharge, Neck: Negative for injury, pain, and swelling, Cardiovascular: Negative for chest pain, palpitations, and edema, Respiratory: Negative for shortness of breath, cough, wheezing, and pleuritic chest pain, Abdomen/GI: Negative for abdominal pain, nausea, vomiting, diarrhea, and constipation, Back: Negative for injury and pain, : Negative for injury, bleeding, discharge, and swelling, MS/Extremity: Negative for injury and deformity, Neuro: Negative for headache, weakness, numbness, tingling, and seizure, Psych: Negative for depression, anxiety, suicide ideation, homicidal ideation, and hallucinations, Allergy/Immunology: Negative for hives, rash, and allergies, Endocrine: Negative for neck swelling, polydipsia, polyuria, polyphagia, and marked weight changes, Hematologic/Lymphatic: Negative for swollen nodes, abnormal bleeding, and unusual bruising, 06:09 Skin: Positive for erythema, rash, diffusely, Exam: 06:09 Constitutional: This is a well developed, well nourished patient who is awake, alert, lobito and in no acute distress. Head/Face: Normocephalic, atraumatic. Eyes: Pupils equal round and reactive to light, extra-ocular motions intact. Lids and lashes normal. Conjunctiva and sclera are non-icteric and not injected. Cornea within normal limits. Periorbital areas with no swelling, redness, or edema. ENT: Nares patent. No nasal discharge, no septal abnormalities noted. Tympanic membranes are normal and external auditory canals are clear. Oropharynx with no redness, swelling, or masses, exudates, or evidence of obstruction, uvula midline. Mucous membranes moist. Neck: Trachea midline, no thyromegaly or masses palpated, and no cervical lymphadenopathy. Supple, full range of motion without nuchal rigidity, or vertebral point tenderness. No Meningismus. Chest/axilla: Normal chest wall appearance and motion. Nontender with no deformity. No lesions are appreciated. Cardiovascular: Regular rate and rhythm with a normal S1 and S2. No gallops, murmurs, or rubs. Normal PMI, no JVD. No pulse deficits. Respiratory: Lungs have equal breath sounds bilaterally, clear to auscultation and percussion. No rales, rhonchi or wheezes noted. No increased work of breathing, no retractions or nasal flaring. Abdomen/GI: Soft, non-tender, with normal bowel sounds. No distension or tympany. No guarding or rebound. No evidence of tenderness throughout. Back: No spinal tenderness. No costovertebral tenderness. Full range of motion. Male : Normal genitalia with no discharge or lesions. MS/ Extremity: Pulses equal, no cyanosis. Neurovascular intact. Full, normal range of motion., bilateral aka Neuro: Awake and alert, GCS 15, oriented to person, place, time, and situation. Cranial nerves II-XII grossly intact. Motor strength 5/5 in all extremities. Sensory grossly intact. Cerebellar exam normal. Normal gait. Psych: Awake, alert, with orientation to person, place and time. Behavior, mood, and affect are within normal limits. 06:09 Skin: abscess, not appreciated, cellulitis, is not appreciated, induration, is not appreciated, injury, is not appreciated, urticaria, Vital Signs: 05:34 BP 159 / 76; Pulse 90; Resp 18 S; Temp 97.9; Pulse Ox 98% on R/A; Weight 140.61 kg (R); ha1 06:47 BP 155 / 95; Pulse 76; Resp 18; Pulse Ox 95% ; Pain 0/10; br2 06:47 Pain Scale: Adult br2 MDM: 05:34 Medical Screening Exam initiated [facility] 06:11 Differential diagnosis: impetigo, varicella, allergic reaction. Differential Diagnosis lobito sepsis, flu. Data reviewed: vital signs, nurses notes, lab test result(s). Consideration of Admission/Observation Escalation of care including admission/observation considered. I considered the following discharge prescriptions or medication management in the emergency department Medications were administered in the Emergency Department. See MAR. Test considered but Not performed: EKG: no ekg. Historians other than the Patient: pt well informed. Care significantly affected by the following chronic conditions: Diabetes, Hypertension, Obesity, cocaine,migraine, depression. Counseling: I had a detailed discussion with the patient and/or guardian regarding the historical points, exam findings, and any diagnostic results supporting the discharge/admit diagnosis, lab results, the need for outpatient follow up, for definitive care, a family practitioner. 02/22 05:36 Order name: CBC with Diff; Complete Time: 06:31 [facility] 02/22 05:36 Order name: Comprehensive Metabolic Panel; Complete Time: 06:31 [facility] Administered Medications: 06:05 Drug: NS 0.9% IV 1000 ml IV at 1000 ml once; to be given as a bolus over 60 minutes br2 Route: IV; Rate: 1000 ml; Site: left antecubital; 06:50 Follow up: IV Status: Completed infusion; IV Intake: 1000ml br2 06:06 Drug: diphenhydrAMINE IVP 50 mg IVP once Route: IVP; Site: left antecubital; br2 06:49 Follow up: Response: No adverse reaction br2 06:06 Drug: Famotidine IVP 40 mg IVP once; dilute with 10 mL 0.9% NaCl; give over 2 minutes br2 Route: IVP; Site: left antecubital; 06:49 Follow up: Response: No adverse reaction br2 06:06 Drug: MethylPrednisoLONE IVP 125 mg IVP once Route: IVP; Site: left antecubital; br2 06:49 Follow up: Response: No adverse reaction br2 06:06 Drug: predniSONE PO 60 mg PO once Route: PO; br2 06:50 Follow up: Response: No adverse reaction br2 Disposition Summary: 02/23/24 06:32 Discharge Ordered Notes: Location: Home [facility] Problem: new lobito Symptoms: have improved lobito Condition: Stable lobito Diagnosis - Urticaria, unspecified lobito - Dermatitis, unspecified lobito Followup: lobito - With: Private Physician - When: 2 - 3 days - Reason: Recheck today's complaints, Continuance of care, Re-evaluation by your physician Followup: lobito - With: Jean-Claude Arreguin, - When: 2 - 3 days - Reason: Recheck today's complaints, Continuance of care, Re-evaluation by your physician Discharge Instructions: - Discharge Summary Sheet [facility] - Allergies, Adult [facility] - Hives [facility] - Rash, Adult, [id number] [facility] - Hives, [id number] [facility] Forms: - Medication Reconciliation Form [facility] - Antibiotic Education [facility] - Prescription Opioid Use [facility] - Patient Portal Instructions [facility] - Leadership Thank You Letter [facility] - Work release form af3 Prescriptions: - Benadryl 25 mg Oral capsule - take 2 capsule ORAL route every 6 hours As needed; 30 tablet; Refills: 0, [facility] Product Selection Permitted - Pepcid 20 mg Oral Tablet - take 1 tablet ORAL route every 12 hours for 10 days; 20 tablet; Refills: 0, [facility] Product Selection Permitted - Prednisone 20 mg Oral Tablet - take 2 tablets ORAL route once daily for 5 days; 10 tablet; Refills: 0, Product [facility] Selection Permitted Signatures: Dispatcher [employer] Cesar Valenzuela MD MD cha Ayala, Heidy, RN RN ha1 Janae Fiore RN RN br2
[2024-02-23 06:58] VITALS: TEMP 97.9
[2024-02-23 06:59] VITALS: BP 155/95; O2SAT 95
== END 2024-02-23 06:50 | disposition home or self-care (01) ==
LOC: ER 05:31
DX: L50.9 Urticaria, unspecified (principal); L30.9 Dermatitis, unspecified
CPT/HCPCS: 36415; 80053; 85025; 96361; 96374; 96375; 99284; J1200; J2919; J7030; J7512

== ENCOUNTER 2024-03-15 18:10 | Emergency (ER) | payer SELFPAY ==
[2024-03-15] MEDS ORDERED: ONDANSETRON 4 MG/2 ML VIAL ONE (18:41)
--- NOTE | 2024-03-15 18:46 | ER ---
Nurse's Notes [facility] Name: Tod Mcgovern II Age: 38 yrs Sex: Male : 1985 Arrival Date: 03/15/2024 Time: 18:10 Bed IW8 Private MD: Diagnosis: Viral gastroenteritis Presentation: 03/15 18:39 Chief complaint: N/V/D and fever since this morning. Denies pain, tolerating fluids. hb Coronavirus screen: Client presents with at least one sign or symptom that may indicate coronavirus-19. Provider contacted for isolation considerations. Ebola Screen: No symptoms or risks identified at this time. Initial Sepsis Screen: Does the patient meet any 2 criteria? No. Patient's initial sepsis screen is negative. Does the patient have a suspected source of infection? No. Patient's initial sepsis screen is negative. Risk Assessment: Do you want to hurt yourself or someone else? Patient reports no desire to harm self or others. Onset of symptoms was March 15, 2024. 18:39 Method Of Arrival: Ambulatory hb 18:39 Acuity: ESTEVAN 3 hb Triage Assessment: 18:43 General: Appears in no apparent distress. ill, Behavior is calm, cooperative. Pain: hb Pain currently is 4 out of 10 on a pain scale. Neuro: GCS15. Cardiovascular: Patient's skin is warm and dry. Respiratory: Respiratory effort is even, unlabored, Respiratory pattern is regular, symmetrical. GI: Reports diarrhea, nausea, vomiting. Historical: - Allergies: 18:41 aloe vera (rash); hb - PMHx: 18:41 cocaine addict; recovered; depressive disorder; diabetes mellitus; Migraines; hb - Immunization history:: Adult Immunizations up to date. - Infectious Disease History:: Denies. - Social history:: Smoking status: Patient/guardian denies using tobacco, Stopped _ months ago 1. Vital Signs: 18:39 BP 176 / 104; Pulse 110; Resp 18; Temp 97.6; Pulse Ox 100% on R/A; Weight 142.88 kg; hb Height 5 ft. 9 in. ; Pain 4/10; 18:39 Body Mass Index 46.52 (142.88 kg, 175.26 cm) hb 18:39 Pain Scale: Adult hb ED Course: 18:11 Patient arrived in ED. im 18:15 [facility] sb[facility] 18:15 Bernarda Oliveira MD is Attending Physician. sb4 18:41 Triage completed. hb 18:41 Arm band placed on. hb Administered Medications: 18:49 Drug: Zofran IM 4 mg IM once Route: IM; Site: right deltoid; hb 18:49 Follow up: Response: Medication administered at discharge. hb Outcome: 18:45 Discharge ordered by . sb4 18:50 Patient left the ED. hb Signatures: Julianne Barton RN RN hb Aneta Gómez PA-C PA-C sb4 Jaci Perez im Corrections: (The following items were deleted from the chart) 18:43 18:39 Chief complaint: N/V/D since this morning. hb hb
--- NOTE | 2024-03-15 18:46 | EDPHYS ---
Physician Documentation [facility] Name: Tod Mcgovern II Age: 38 yrs Sex: Male : 1985 Arrival Date: 03/15/2024 Time: 18:10 Bed IW8 Private MD: ED Physician Bernarda Oliveira HPI: 03/15 19:22 This 38 yrs old Male presents to ER via Ambulatory with complaints of sb4 Nausea/Vomiting/Diarrhea. 19:22 The patient presents to the emergency department with nausea, vomiting, diarrhea. sb4 Onset: The symptoms/episode began/occurred this morning. Possible causes: sick contacts, by family. The symptoms are aggravated by nothing. The symptoms are alleviated by nothing. Patient reports nausea, vomiting, and diarrhea that began this morning. His family members have similar symptoms. He is able to tolerate chicken noodle soup and small sips of water. Denies any abdominal pain. States he did have a fever this morning. Historical: - Allergies: 18:41 aloe vera (rash); hb - PMHx: 18:41 cocaine addict; recovered; depressive disorder; diabetes mellitus; Migraines; hb - Immunization history:: Adult Immunizations up to date. - Infectious Disease History:: Denies. - Social history:: Smoking status: Patient/guardian denies using tobacco, Stopped _ months ago 1. ROS: 19:22 Respiratory: Negative for shortness of breath, cough, wheezing, and pleuritic chest sb4 pain, 19:22 Constitutional: Positive for fever, 19:22 Abdomen/GI: Positive for nausea, vomiting, and diarrhea, 19:22 All other systems are negative, Exam: 19:22 Head/Face: Normocephalic, atraumatic. Eyes: Extra-ocular motions intact. Periorbital sb4 areas with no swelling, redness, or edema. ENT: Mucous membranes moist. Respiratory: No increased work of breathing, no retractions or nasal flaring. Abdomen/GI: Soft, non-tender, no distension. Skin: Warm, dry with normal turgor. Normal color with no rashes, no lesions, and no evidence of cellulitis. 19:22 Constitutional: The patient appears alert, awake, obviously ill, 19:22 Cardiovascular: Rate: tachycardic, Rhythm: regular, Vital Signs: 18:39 BP 176 / 104; Pulse 110; Resp 18; Temp 97.6; Pulse Ox 100% on R/A; Weight 142.88 kg; hb Height 5 ft. 9 in. ; Pain 4/10; 18:39 Body Mass Index 46.52 (142.88 kg, 175.26 cm) hb 18:39 Pain Scale: Adult hb MDM: 18:42 Medical Screening Exam initiated sb4 19:22 Data reviewed: vital signs, nurses notes, and as a result, I will discharge patient. sb4 Test considered but Not performed: Labs: Patient does not want blood work done at this time or IV. He states that he is only here because his work made him come for clearance. Counseling: I had a detailed discussion with the patient and/or guardian regarding the historical points, exam findings, and any diagnostic results supporting the discharge/admit diagnosis, the presence of at least one elevated blood pressure reading (>120/80) during this emergency department visit, the need for outpatient follow up, for definitive care, to return to the emergency department if symptoms worsen or persist or if there are any questions or concerns that arise at home. Refusal of service: The patient/guardian displays adequate decision making capability and despite a detailed discussion of alternatives, benefits, risks, and consequences refuses: all lab tests. Administered Medications: 18:49 Drug: Zofran IM 4 mg IM once Route: IM; Site: right deltoid; 18:49 Follow up: Response: Medication administered at discharge. Disposition Summary: 03/15/24 18:45 Discharge Ordered Notes: Location: Home sb4 Problem: new sb4 Symptoms: are unchanged sb4 Condition: Stable sb4 Diagnosis - Viral gastroenteritis sb4 Followup: sb4 - With: Emergency Department - When: As needed - Reason: Trouble breathing, Worsening of condition Discharge Instructions: - Discharge Summary Sheet hb - Viral Gastroenteritis, Adult, [id number] sb4 Forms: - Work release form hb - Patient Portal Instructions sb4 - Leadership Thank You Letter sb4 Prescriptions: - ondansetron 8 mg Oral Tablet,disintegrating - take 1 tablet ORAL route every 8 hours; 10 tablet; Refills: 0, Product sb4 Selection Permitted Addendum: 03/18/2024 19:58 Co-signature as Attending Physician, Bernarda Oliveira MD I reviewed the patient's care g b1 provided by the Advanced Practice Provider and agree with the diagnosis and treatment plan. Signatures: Julainne Barton, RN Aneta Marin PA-C PAAngela sb4 Bernarda Oliveira MD MD gb1
[2024-03-15 19:04] VITALS: BP 176/104; TEMP 97.6; O2SAT 100
== END 2024-03-15 18:50 | disposition home or self-care (01) ==
LOC: ER 18:10
DX: A08.4 Viral intestinal infection, unspecified (principal); R11.2 Nausea with vomiting, unspecified; R19.7 Diarrhea, unspecified; E11.9 Type 2 diabetes mellitus without complications; F32.A Depression, unspecified
CPT/HCPCS: 96372; 99283; J2405